=== PATIENT | male | born 1950 | race Caucasian/White ===

== ENCOUNTER 2019-10-04 17:24 | Inpatient (IN) | payer MEDICARE, OTHER ==
[2019-10-04] MEDS ORDERED: IPRATROPIUM-ALBUTEROL 3 ML NEB INHALATION STA (17:51)
[2019-10-04 18:24] LABS: Basophils # (A) 0.1 k/uL (0-0.2); Basophils % (A) 0 %; Eosinophils # (A) 0.1 k/uL (0-0.7); Eosinophils % (A) 1 %; HCT 42.2 % (39.0-53.0); HGB 12.8 gm/dL (13.0-17.5); Hypochromasia Slight; Lymphocytes # (A) 1.9 k/uL (1.0-4.8); Lymphocytes % (A) 18 %; MCH 26.1 pg (25.0-35.0); MCHC 30.3 g/dL (31.0-37.0); MCV 86.3 fL (80.0-100.0); Mean Platelet Volume 8.1; Monocytes # (A) 0.8 k/uL (0-1.0); Monocytes % (A) 7 %; Neutrophils # (A) 7.6 k/uL (1.3-7.7); Neutrophils % (A) 71 %; Platelet Count 355 k/uL (150-450); RBC 4.89 m/uL (4.30-5.90); RDW 13.6 % (11.5-15.5); WBC 10.7 k/uL (3.8-10.6)
[2019-10-04] MEDS ORDERED: MAGNESIUM SULFATE-D5W PMX 1 GM in DEXTROSE/WATER 1 100ML.BAG IVPB ONE (18:32)
[2019-10-04 18:46] LABS: Partial Thromboplastin Time 21.9 sec (22.0-30.0); Prothrombin Time 10.2 sec (9.0-12.0)
[2019-10-04 18:47] LABS: ALT 29 U/L (4-49); AST 28 U/L (17-59); African American GFR (CKD) >90 (>60 ml/min/1.73 sqM); Albumin 4.1 g/dL (3.5-5.0); Alkaline Phosphatase 111 U/L (38-126); Blood Urea Nitrogen 22 mg/dL (9-20); Calcium 9.2 mg/dL (8.4-10.2); Chloride 94 mmol/L (98-107); Glucose 104 mg/dL (74-99); Magnesium 2.2 mg/dL (1.6-2.3); Non-African American GFR(CKD) 87 (>60 ml/min/1.73 sqM); Potassium 4.2 mmol/L (3.5-5.1); Sodium 139 mmol/L (137-145); Total Bilirubin 0.5 mg/dL (0.2-1.3)
[2019-10-04 18:53] LABS: Anion Gap 8 mmol/L
[2019-10-04 18:56] LABS: Carbon Dioxide 37 mmol/L (22-30)
--- NOTE | 2019-10-04 19:01 | ED ---
SOB HPI - General Chief Complaint: Shortness of Breath Stated Complaint: Diff Breathing Time Seen by Provider: 10/04/19 17:40 Source: EMS Mode of arrival: EMS Limitations: no limitations - History of Present Illness Initial Comments: The patient is a 5-year-old male with past medical history of COPD who presents to emergency room with reported shortness of breath. He is normally on 5 L of oxygen at home at all times. He follows up with Dr. Isaac in office. States over the past 5 days he has had increasing shortness of breath. He is using his nebulizers and inhalers as directed however continues to have increasing shortness of breath. He is normally on prednisone 10 mg daily. The patient also has lower extremity edema. He states this has been present for the past 4 months. States that it is been markedly improved compared to what it has been. No history of congestive heart failure. Dr. Isaac has him on diuretics. He denies any chest pain. No ripping or tearing sensation to his back. Denies abdominal pain. Continues to urinate without difficulty. No sick contacts. Denies cough or hemoptysis. He has never been intubated for his breathing. There are no other alleviating, precipitating or modifying factors - Related Data Home Medications Medication Instructions Recorded Confirmed ALPRAZolam [Xanax] 0.25 mg PO TID PRN 10/27/17 10/05/19 Albuterol Inhaler [Ventolin Hfa 2 puff INHALATION RT-Q6H PRN 10/27/17 10/05/19 Inhaler] Albuterol Nebulized [Ventolin 2.5 mg INHALATION RT-QID PRN 10/05/19 10/05/19 Nebulized] Fluticasone/Umeclidin/Vilanter 1 puff INHALATION RT-DAILY 10/05/19 10/05/19 [Trelegy Ellipta 100-62.5-25] Furosemide [Lasix] 40 mg PO DAILY 10/05/19 10/05/19 Potassium Chloride [Klor-Con 20] 20 meq PO DAILY 10/05/19 10/05/19 predniSONE 10 mg PO DAILY 10/05/19 10/05/19 Previous Rx's Medication Instructions Recorded Cefuroxime Axetil [Ceftin] 500 mg PO BID 3 Days #6 tab 10/07/19 Multivitamins, Thera [Multivitamin 1 each PO DAILY@1200 #30 tab 10/07/19 (formulary)] predniSONE 10 mg PO DIRECTED #60 tab 10/07/19 Budesonide [Pulmicort] 1 mg INHALATION BID 30 Days #60 neb 10/08/19 Ipratropium-Albuterol Nebulize 3 ml INHALATION QID 30 Days #120 10/08/19 [Duoneb 0.5 mg-3 mg/3 ml Soln] neb Allergies Allergy/AdvReac Type Severity Reaction Status Date / Time Sulfa (Sulfonamide Allergy Unknown Verified 10/05/19 08:33 Antibiotics) Review of Systems ROS Statement: Those systems with pertinent positive or pertinent negative responses have been documented in the HPI. ROS Other: All systems not noted in ROS Statement are negative. Past Medical History Past Medical History: Heart Failure, COPD, Pneumonia Additional Past Medical History / Comment(s): home 02 2-3 liters nc, emphysema History of Any Multi-Drug Resistant Organisms: None Reported Past Surgical History: Hernia Repair, Tonsillectomy Additional Past Surgical History / Comment(s): rt ing hernia Past Anesthesia/Blood Transfusion Reactions: Motion Sickness Past Psychological History: No Psychological Hx Reported Smoking Status: Former smoker Past Alcohol Use History: None Reported Past Drug Use History: None Reported - Past Family History Mother Family Medical History: Congestive Heart Failure (CHF) Additional Family Medical History / Comment(s): Father Family Medical History: Coronary Artery Disease (CAD) Additional Family Medical History / Comment(s): "hardening of the arteries" General Exam Limitations: no limitations General appearance: alert, in distress Eye exam: Present: normal appearance, PERRL, EOMI. Absent: scleral icterus, conjunctival injection, periorbital swelling ENT exam: Present: normal exam, mucous membranes moist Respiratory exam: Present: respiratory distress, wheezes, accessory muscle use, decreased breath sounds Cardiovascular Exam: Present: normal rhythm, tachycardia GI/Abdominal exam: Present: soft, normal bowel sounds. Absent: distended, tenderness, guarding, rebound, rigid Extremities exam: Present: pedal edema Neurological exam: Present: alert, oriented X3, CN II-XII intact Psychiatric exam: Present: normal affect, normal mood Skin exam: Present: warm, dry, intact, normal color. Absent: rash Course Vital Signs 10/04/19 10/04/19 10/04/19 17:37 18:09 18:19 Temperature 98.2 F Pulse Rate 106 H 108 H 108 H Respiratory 32 H Rate Blood Pressure 168/77 O2 Sat by Pulse 95 Oximetry 10/04/19 10/04/19 10/04/19 18:34 19:17 19:46 Temperature Pulse Rate 94 96 Respiratory 20 20 26 H Rate Blood Pressure 130/73 140/73 O2 Sat by Pulse 98 97 Oximetry 10/04/19 20:21 Temperature 97.7 F Pulse Rate 96 Respiratory 20 Rate Blood Pressure 151/80 O2 Sat by Pulse 97 Oximetry Medical Decision Making - Medical Decision Making Upon arrival the patient was originally placed in room 31 and then was moved to room 28. A thorough history and physical exam was performed. The patient was given a DuoNeb breathing treatment, albuterol treatment and 125 mg of Solu- Medrol via EMS. The patient received an additional DuoNeb breathing treatment and 1 g of magnesium for his peripheral IV which was established. Laboratory studies were conducted which demonstrate chloride of 94, lactic acid 1.4. First troponin is negative. Influenza A and B are negative. Chest x-ray demonstrates no acute process. I discussed results with the patient. He does state that he feels more comfortable at this time. Because of his severe worker breathing upon arrival to the ER I did recommend hospitalization with pulmonary consult. The patient did agree to this. Bridging orders were placed and the patient was taken to the floor in stable condition - Lab Data Result diagrams: 10/07/19 05:45 10/07/19 05:45 Lab Results 10/04/19 10/04/19 10/04/19 Range/Units 17:56 17:56 17:56 WBC 10.7 H (3.8-10.6) k/uL RBC 4.89 (4.30-5.90) m/uL Hgb 12.8 L (13.0-17.5) gm/dL Hct 42.2 (39.0-53.0) % MCV 86.3 (80.0-100.0) fL MCH 26.1 (25.0-35.0) pg MCHC 30.3 L (31.0-37.0) g/dL RDW 13.6 (11.5-15.5) % Plt Count 355 (150-450) k/uL Neutrophils % 71 % Lymphocytes % 18 % Monocytes % 7 % Eosinophils % 1 % Basophils % 0 % Neutrophils # 7.6 (1.3-7.7) k/uL Lymphocytes # 1.9 (1.0-4.8) k/uL Monocytes # 0.8 (0-1.0) k/uL Eosinophils # 0.1 (0-0.7) k/uL Basophils # 0.1 (0-0.2) k/uL Hypochromasia Slight PT 10.2 (9.0-12.0) sec INR 1.0 (<1.2) APTT 21.9 L (22.0-30.0) sec Sodium 139 (137-145) mmol/L Potassium 4.2 (3.5-5.1) mmol/L Chloride 94 L (98-107) mmol/L Carbon Dioxide 37 H (22-30) mmol/L Anion Gap 8 mmol/L BUN 22 H (9-20) mg/dL Creatinine 0.88 (0.66-1.25) mg/dL Est GFR (CKD-EPI)AfAm >90 (>60 ml/min/1.73 sqM) Est GFR (CKD-EPI)NonAf 87 (>60 ml/min/1.73 sqM) Glucose 104 H (74-99) mg/dL Plasma Lactic Acid Rj (0.7-2.0) mmol/L Calcium 9.2 (8.4-10.2) mg/dL Magnesium 2.2 (1.6-2.3) mg/dL Total Bilirubin 0.5 (0.2-1.3) mg/dL AST 28 (17-59) U/L ALT 29 (4-49) U/L Alkaline Phosphatase 111 (38-126) U/L Troponin I (0.000-0.034) ng/mL NT-Pro-B Natriuret Pep pg/mL Total Protein 7.0 (6.3-8.2) g/dL Albumin 4.1 (3.5-5.0) g/dL Urine Color Urine Appearance (Clear) Urine pH (5.0-8.0) Ur Specific [place] (1.001-1.035) Urine Protein (Negative) Urine Glucose (UA) (Negative) Urine Ketones (Negative) Urine Blood (Negative) Urine Nitrite (Negative) Urine Bilirubin (Negative) Urine Urobilinogen (<2.0) mg/dL Ur Leukocyte Esterase (Negative) Influenza Type A RNA (Not Detectd) Influenza Type B (PCR) (Not Detectd) 10/04/19 10/04/19 10/04/19 Range/Units 17:56 17:56 18:10 WBC (3.8-10.6) k/uL RBC (4.30-5.90) m/uL Hgb (13.0-17.5) gm/dL Hct (39.0-53.0) % MCV (80.0-100.0) fL MCH (25.0-35.0) pg MCHC (31.0-37.0) g/dL RDW (11.5-15.5) % Plt Count (150-450) k/uL Neutrophils % % Lymphocytes % % Monocytes % % Eosinophils % % Basophils % % Neutrophils # (1.3-7.7) k/uL Lymphocytes # (1.0-4.8) k/uL Monocytes # (0-1.0) k/uL Eosinophils # (0-0.7) k/uL Basophils # (0-0.2) k/uL Hypochromasia PT (9.0-12.0) sec INR (<1.2) APTT (22.0-30.0) sec Sodium (137-145) mmol/L Potassium (3.5-5.1) mmol/L Chloride (98-107) mmol/L Carbon Dioxide (22-30) mmol/L Anion Gap mmol/L BUN (9-20) mg/dL Creatinine (0.66-1.25) mg/dL Est GFR (CKD-EPI)AfAm (>60 ml/min/1.73 sqM) Est GFR (CKD-EPI)NonAf (>60 ml/min/1.73 sqM) Glucose (74-99) mg/dL Plasma Lactic Acid Rj 1.4 (0.7-2.0) mmol/L Calcium (8.4-10.2) mg/dL Magnesium (1.6-2.3) mg/dL Total Bilirubin (0.2-1.3) mg/dL AST (17-59) U/L ALT (4-49) U/L Alkaline Phosphatase (38-126) U/L Troponin I <0.012 (0.000-0.034) ng/mL NT-Pro-B Natriuret Pep 275 pg/mL Total Protein (6.3-8.2) g/dL Albumin (3.5-5.0) g/dL Urine Color Urine Appearance (Clear) Urine pH (5.0-8.0) Ur Specific [place] (1.001-1.035) Urine Protein (Negative) Urine Glucose (UA) (Negative) Urine Ketones (Negative) Urine Blood (Negative) Urine Nitrite (Negative) Urine Bilirubin (Negative) Urine Urobilinogen (<2.0) mg/dL Ur Leukocyte Esterase (Negative) Influenza Type A RNA (Not Detectd) Influenza Type B (PCR) (Not Detectd) 10/04/19 10/04/19 10/05/19 Range/Units 19:11 23:20 00:12 WBC (3.8-10.6) k/uL RBC (4.30-5.90) m/uL Hgb (13.0-17.5) gm/dL Hct (39.0-53.0) % MCV (80.0-100.0) fL MCH (25.0-35.0) pg MCHC (31.0-37.0) g/dL RDW (11.5-15.5) % Plt Count (150-450) k/uL Neutrophils % % Lymphocytes % % Monocytes % % Eosinophils % % Basophils % % Neutrophils # (1.3-7.7) k/uL Lymphocytes # (1.0-4.8) k/uL Monocytes # (0-1.0) k/uL Eosinophils # (0-0.7) k/uL Basophils # (0-0.2) k/uL Hypochromasia PT (9.0-12.0) sec INR (<1.2) APTT (22.0-30.0) sec Sodium (137-145) mmol/L Potassium (3.5-5.1) mmol/L Chloride (98-107) mmol/L Carbon Dioxide (22-30) mmol/L Anion Gap mmol/L BUN (9-20) mg/dL Creatinine (0.66-1.25) mg/dL Est GFR (CKD-EPI)AfAm (>60 ml/min/1.73 sqM) Est GFR (CKD-EPI)NonAf (>60 ml/min/1.73 sqM) Glucose (74-99) mg/dL Plasma Lactic Acid Rj (0.7-2.0) mmol/L Calcium (8.4-10.2) mg/dL Magnesium (1.6-2.3) mg/dL Total Bilirubin (0.2-1.3) mg/dL AST (17-59) U/L ALT (4-49) U/L Alkaline Phosphatase (38-126) U/L Troponin I 0.015 (0.000-0.034) ng/mL NT-Pro-B Natriuret Pep pg/mL Total Protein (6.3-8.2) g/dL Albumin (3.5-5.0) g/dL Urine Color Yellow Urine Appearance Clear (Clear) Urine pH 6.0 (5.0-8.0) Ur Specific [place] 1.029 (1.001-1.035) Urine Protein Trace H (Negative) Urine Glucose (UA) Negative (Negative) Urine Ketones Negative (Negative) Urine Blood Negative (Negative) Urine Nitrite Negative (Negative) Urine Bilirubin Negative (Negative) Urine Urobilinogen 3.0 (<2.0) mg/dL Ur Leukocyte Esterase Negative (Negative) Influenza Type A RNA Not Detected (Not Detectd) Influenza Type B (PCR) Not Detected (Not Detectd) 10/05/19 10/05/19 10/05/19 Range/Units 09:28 09:28 09:28 WBC 12.0 H (3.8-10.6) k/uL RBC 4.82 (4.30-5.90) m/uL Hgb 12.7 L (13.0-17.5) gm/dL Hct 42.1 (39.0-53.0) % MCV 87.3 (80.0-100.0) fL MCH 26.3 (25.0-35.0) pg MCHC 30.1 L (31.0-37.0) g/dL RDW 13.6 (11.5-15.5) % Plt Count 355 (150-450) k/uL Neutrophils % 90 % Lymphocytes % 6 % Monocytes % 3 % Eosinophils % 0 % Basophils % 0 % Neutrophils # 10.9 H (1.3-7.7) k/uL Lymphocytes # 0.8 L (1.0-4.8) k/uL Monocytes # 0.3 (0-1.0) k/uL Eosinophils # 0.0 (0-0.7) k/uL Basophils # 0.0 (0-0.2) k/uL Hypochromasia Slight PT (9.0-12.0) sec INR (<1.2) APTT (22.0-30.0) sec Sodium 139 (137-145) mmol/L Potassium 5.0 (3.5-5.1) mmol/L Chloride 94 L (98-107) mmol/L Carbon Dioxide 40 H (22-30) mmol/L Anion Gap 5 mmol/L BUN 24 H (9-20) mg/dL Creatinine 0.80 (0.66-1.25) mg/dL Est GFR (CKD-EPI)AfAm >90 (>60 ml/min/1.73 sqM) Est GFR (CKD-EPI)NonAf >90 (>60 ml/min/1.73 sqM) Glucose 162 H (74-99) mg/dL Plasma Lactic Acid Rj (0.7-2.0) mmol/L Calcium 9.3 (8.4-10.2) mg/dL Magnesium (1.6-2.3) mg/dL Total Bilirubin (0.2-1.3) mg/dL AST (17-59) U/L ALT (4-49) U/L Alkaline Phosphatase (38-126) U/L Troponin I <0.012 (0.000-0.034) ng/mL NT-Pro-B Natriuret Pep pg/mL Total Protein (6.3-8.2) g/dL Albumin (3.5-5.0) g/dL Urine Color Urine Appearance (Clear) Urine pH (5.0-8.0) Ur Specific [place] (1.001-1.035) Urine Protein (Negative) Urine Glucose (UA) (Negative) Urine Ketones (Negative) Urine Blood (Negative) Urine Nitrite (Negative) Urine Bilirubin (Negative) Urine Urobilinogen (<2.0) mg/dL Ur Leukocyte Esterase (Negative) Influenza Type A RNA (Not Detectd) Influenza Type B (PCR) (Not Detectd) - EKG Data EKG Comments: EKG demonstrates a normal sinus rhythm with a ventricular rate of 99. OR interv al 116. QRS 76. QTC of 451. No acute ST segment elevations or depressions concerning for ischemic changes Disposition Clinical Impression: Acute exacerbation of chronic obstructive airways disease Disposition: ADMITTED IP TO THIS HOSP Condition: Stable Is patient prescribed a controlled substance at d/c from ED?: No Decision to Admit Reason: Admit from EC Decision Date: 10/04/19 Decision Time: 19:56
--- NOTE | 2019-10-04 19:32 | XR ---
EXAMINATION: XR chest 2V DATE AND TIME: 10/04/2019 6:42 PM CLINICAL INDICATION: PHH; difficulty breathing TECHNIQUE: Departmental protocol COMPARISON: 10/27/2017 FINDINGS: Emphysematous changes are redemonstrated. The lungs are clear and well-expanded. The pleural spaces are negative. The cardiac silhouette is not enlarged. The remainder of the mediastinal silhouette is unremarkable. The skeletal structures and soft tissues are negative for acute findings. IMPRESSION: No acute radiographic process.
[2019-10-04] MEDS ORDERED: NALOXONE 0.4 MG/ML 1 ML VIAL IV PRN (19:57)
[2019-10-04] MEDS ORDERED: IPRATROPIUM-ALBUTEROL 3 ML NEB INHALATION PRN (21:31)
[2019-10-04] MEDS ORDERED: HYDROcodone/APAP 5-325MG 1 EACH TAB PO PRN (21:31)
[2019-10-04] MEDS ORDERED: ACETAMINOPHEN TAB 500 MG TAB PO PRN (21:31)
[2019-10-04] MEDS: HEPARIN SODIUM,PORCINE 5,000 UNIT/ML 1 ML VIAL SQ SCH (22:41)
[2019-10-04] MEDS: FUROSEMIDE 10 MG/ML 4 ML VIAL IV SCH (22:42)
[2019-10-04] MEDS: methylPREDNISolone SOD SUCCI 40 MG/ML 1 ML VIAL IV SCH (22:42)
[2019-10-04] MEDS: AZITHROMYCIN 500 MG in SODIUM CHLORIDE 0.9% 250 ML IVPB SCH (22:42)
[2019-10-04] MEDS: ALPRAZolam 0.25 MG TAB PO PRN (22:52)
--- NOTE | 2019-10-04 23:47 | HP ---
HISTORY AND PHYSICAL DATE OF SERVICE: 10/04/2019 CHIEF COMPLAINT: Shortness of breath, cough and sputum and bilateral leg swelling. HISTORY OF PRESENT ILLNESS: This 68-year-old gentleman with a past medical history of multiple medical problems including COPD, CHF, history of chronic hypoxic respiratory failure, history of nicotine dependence, being followed by Dr. Isaac in the outpatient setting complaining of shortness of breath over the past several days. Patient also had bilateral leg swelling and increasing diuretics. Because of lack of improvement, increased symptoms, patient came to [facility] and was admitted for further evaluation and treatment. Chest x-ray showed some chronic changes. No acute changes are noted. Cor pulmonale is also being considered. The patient did not have a 2D echo in the chart at this time. There is no history of fever, rigors or chills. No history of headache, loss of consciousness or seizures. Flu test is also being done. PAST MEDICAL HISTORY: History of CHF, COPD, history of pneumonia, chronic hypoxic respiratory failure, history of hernia repair. MEDICATIONS: Home medications are: 1. Prednisone 5 mg p.o. daily. 2. Spiriva 1 puff daily. 4. Magnesium oxide 500 mg p.o. daily. 5. Advair 500/50 1 puff b.i.d. 6. Ecotrin 81 mg daily. 7. Ventolin 1-2 puffs q.6h p.r.n. 8. Xanax 0.5 t.i.d. p.r.n. ALLERGIES: SULFA. FAMILY HISTORY: History of CHF. SOCIAL HISTORY: Previous history of smoking. No history of current smoking, or alcohol intake. REVIEW OF SYSTEMS: ENT diminished vision. Diminished hearing. CARDIOVASCULAR: No angina or palpitations. RESPIRATION as mentioned earlier. GASTROINTESTINAL: As mentioned earlier. no dysuria. Nervous systems: No numbness or weakness. ALLERGY/IMMUNOLOGY: No asthma or hayfever. MUSCULOSKELETAL: As mentioned earlier. HEMATOLOGY/ONCOLOGY: No history of anemia. ENDOCRINE: No history of diabetes or hypothyroidism. CONSTITUTIONAL: As mentioned earlier. DERMATOLOGY negative. RHEUMATOLOGY: Negative. PSYCHIATRY as mentioned. PHYSICAL EXAMINATION: Alert and oriented x3. Pulse is 96, blood pressure 140/73, respiration 20, temperature is normal. Pulse ox 97% on 5 L. HEENT: Conjunctivae normal. NECK: No JVD. CARDIOVASCULAR: S1, S2 muffled. RESPIRATION: Breath sounds diminished in the bases. Bilateral scattered rhonchi and crackles. Otherwise breathing efforts are markedly increased. ABDOMEN: Soft, nontender. No mass palpable. LEGS bilateral leg edema, swelling and cellulitis. NERVOUS SYSTEM: Higher functions as mentioned. Moves all four limbs. No focal deficits. LYMPHATICS: No lymph nodes palpable in the neck, axillae or groin. SKIN: No ulcer. No rashes and no bleeding. JOINTS: No active deforming arthropathy. LAB STUDIES: WBC 10.2, hemoglobin 12.8, sodium 139, potassium 4.2. ASSESSMENT: 1. Chronic obstructive pulmonary disease acute exacerbation with acute ventricular bronchitis. 2. Possibly congestive heart failure, acute exacerbation, ejection fraction unknown, possibly acute on chronic cor pulmonale. 3. Bilateral leg cellulitis. 4. Increased WBC. 5. Anemia, normocytic anemia of chronic disease. 6. History of chronic obstructive pulmonary disease. 7. History of congestive heart failure. 8. History of pneumonia. 9. History of chronic hypoxic respiratory failure on 2 L nasal cannula. 10.Remote history of nicotine dependence. 11.Obesity with body mass of 33.2. RECOMMENDATIONS AND DISCUSSION: In this 68-year-old gentleman who presented with multiple complex medical issues, we will monitor the patient closely, continue the current medications, management and symptomatic treatment. Optimize the bronchodilator treatment. Otherwise, I would also recommend diuretics, antibiotics. IV steroids. Closely follow. Consult Dr. Mcgill. Guarded prognosis. Further recommendations to follow. A copy of dictation being forwarded to Dr. Isaac who is the primary care physician. This of this. MMODL / IJN: [id number] / MTDGage
[2019-10-04 23:57] LABS: Appearance,Urine Clear (Clear); Bilirubin,Urine Negative (Negative); Blood,Urine Negative (Negative); Color,Urine Yellow; Glucose,Urine (UA) Negative (Negative); Ketones,Urine Negative (Negative); Leukocyte Esterase,Urine Negative (Negative); Nitrite,Urine Negative (Negative); Protein,Urine Trace (Negative); Specific Gravity,Urine 1.029 (1.001-1.035)
[2019-10-05] MEDS ORDERED: IPRATROPIUM-ALBUTEROL 3 ML NEB INHALATION SCH
[2019-10-05] MEDS ORDERED: methylPREDNISolone SOD SUCCI 40 MG/ML 1 ML VIAL IV SCH
[2019-10-05] MEDS: methylPREDNISolone SOD SUCCI 40 MG/ML 1 ML VIAL IV SCH ×3 (06:00→18:19)
[2019-10-05] MEDS ORDERED: SYMBICORT 160-4.5 MCG INHALER INHALATION SCH (08:00)
[2019-10-05] MEDS ORDERED: TIOTROPIUM BROMIDE INHALATION SCH (08:00)
[2019-10-05] MEDS: BUDESONIDE 1 MG/2 ML NEBU INHALATION SCH ×2 (08:03→20:00)
[2019-10-05] MEDS: IPRATROPIUM-ALBUTEROL 3 ML NEB INHALATION SCH ×4 (08:03→20:00)
[2019-10-05] MEDS: FORMOTEROL FUMARATE 20 MCG/2 ML NEBU INHALATION SCH ×2 (08:03→20:00)
[2019-10-05] MEDS: ASPIRIN 81 MG PO SCH (09:12)
[2019-10-05] MEDS: PANTOPRAZOLE 40 MG TABLET PO SCH (09:12)
[2019-10-05] MEDS: FUROSEMIDE 10 MG/ML 4 ML VIAL IV SCH (09:12)
[2019-10-05] MEDS: HEPARIN SODIUM,PORCINE 5,000 UNIT/ML 1 ML VIAL SQ SCH ×2 (09:12→22:12)
[2019-10-05] MEDS: ALPRAZolam 0.25 MG TAB PO PRN ×2 (09:16→18:19)
[2019-10-05 09:43] LABS: Basophils % (A) 0 %; Eosinophils % (A) 0 %; HCT 42.1 % (39.0-53.0); HGB 12.7 gm/dL (13.0-17.5); Hypochromasia Slight; Lymphocytes # (A) 0.8 k/uL (1.0-4.8); Lymphocytes % (A) 6 %; MCH 26.3 pg (25.0-35.0); MCHC 30.1 g/dL (31.0-37.0); MCV 87.3 fL (80.0-100.0); Mean Platelet Volume 7.2; Monocytes # (A) 0.3 k/uL (0-1.0); Monocytes % (A) 3 %; Neutrophils # (A) 10.9 k/uL (1.3-7.7); Neutrophils % (A) 90 %; Platelet Count 355 k/uL (150-450); RBC 4.82 m/uL (4.30-5.90); RDW 13.6 % (11.5-15.5)
[2019-10-05 09:53] LABS: African American GFR (CKD) >90 (>60 ml/min/1.73 sqM); Anion Gap 5 mmol/L; Blood Urea Nitrogen 24 mg/dL (9-20); Calcium 9.3 mg/dL (8.4-10.2); Chloride 94 mmol/L (98-107); Glucose 162 mg/dL (74-99); Non-African American GFR(CKD) >90 (>60 ml/min/1.73 sqM); Sodium 139 mmol/L (137-145)
[2019-10-05 10:00] LABS: Carbon Dioxide 40 mmol/L (22-30)
--- NOTE | 2019-10-05 10:31 | ECHOF ---
Referral Reason:cor pulmonale MEASUREMENTS -------- HEIGHT: 175.3 cm WEIGHT: 102.1 kg BP: 154/63 RVIDd: 3.4 cm (< 3.3) IVSd: 1.1 cm (0.6 - 1.1) LVIDd: 5.2 cm (3.9 - 5.3) LVPWd: 1.0 cm (0.6 - 1.1) IVSs: 1.6 cm LVIDs: 3.8 cm LVPWs: 1.4 cm LA Diam: 3.5 cm (2.7 - 3.8) Ao Diam: 3.9 cm (2.0 - 3.7) AV Cusp: 2.1 cm (1.5 - 2.6) MV EXCURSION: 26.030 mm (> 18.000) MV EF SLOPE: 96 mm/s (70 - 150) EPSS: 0.4 cm MV E Zain: 0.76 m/s MV DecT: 253 ms MV A Zain: 0.95 m/s MV E/A Ratio: 0.80 FINDINGS -------- Sinus rhythm. This was a technically adequate study. The left ventricular size is normal. There is borderline concentric left ventricular hypertrophy. Overall left ventricular systolic function is mildly impaired with, an EF between 45 - 50 %. The right ventricle is mildly enlarged. The left atrial size is normal. The right atrium is normal in size. Interatrial and interventricular septum intact. The aortic valve is trileaflet and appears structurally normal. Mild mitral regurgitation is present. Trace tricuspid regurgitation present. The pulmonic valve was not well visualized. The aortic root is dilated measuring 3.9cm. IVC Not well visulized. There is no pericardial effusion. CONCLUSIONS -------- 1. Sinus rhythm. 2. This was a technically adequate study. 3. The left ventricular size is normal. 4. There is borderline concentric left ventricular hypertrophy. 5. Overall left ventricular systolic function is mildly impaired with, an EF between 45 - 50 %. 6. The right ventricle is mildly enlarged. 7. The left atrial size is normal. 8. The right atrium is normal in size. 9. Interatrial and interventricular septum intact. 10. The aortic valve is trileaflet and appears structurally normal. 11. Mild mitral regurgitation is present. 12. Trace tricuspid regurgitation present. 13. The pulmonic valve was not well visualized. 14. The aortic root is dilated measuring 3.9cm. 15. IVC Not well visulized. 16. There is no pericardial effusion. APPRENTICE COOK: Ayaka Pettit RDCS
--- NOTE | 2019-10-05 12:38 | P.CNPUL ---
History of Present Illness Consult date: 10/05/19 Reason for consult: dyspnea, COPD History of present illness: This is a 68-year-old white male with history of severe end-stage COPD, FEV1 is in the range of 22%, patient is O2 dependent, prednisone dependent maintained on 10 mg of prednisone daily, and he is on 2 L of oxygen via nasal cannula. Patient normally sees Dr. Isaac for his COPD, and has been compliant with all his meds, quit smoking a while back. Patient has FEV1 was noted to be 22% at best. Came into the ER today with a few days' history of increased shortness of breath, cough, and fever. His cough was productive with whitish phlegm. No hemoptysis, no chest pain, no nausea no vomiting no abdominal pain. Patient is compliant with all his meds as listed including albuterol, Trelegy Ellipta, and prednisone. The patient has chronic edema in his lower extremities. No denies having any chest pain. Denies having any fever. His breathing has a progressively getting worse over this past 5 days. He oxygen level was holding of fluctuating, however, his artery was doing significantly high with minimal amount of activity. The patient had no significant leukocytosis. Chest x-ray was consistent with COPD. Influenza screen was negative. Rest of the blood work was all within normal limits. Echo of the heart showed an ejection fraction of 45-50% and there was no other significant valvular abnormalities. His concentric LVH. Review of Systems Constitutional: Reports fatigue, Reports lethargy, Reports weight gain Eyes: denies as per HPI, denies blurred vision, denies bulging eye, denies decreased vision, denies diplopia, denies discharge, denies dry eye, denies irritation, denies itching, denies pain, denies photophobia, denies loss of peripheral vision, denies loss of vision, denies tunnel vision/blind spots Ears: deny: decreased hearing, ear discharge, earache, tinnitus Ears, nose, mouth and throat: Denies headache, Denies sore throat Breasts: absent: as per HPI, gynecomastia Cardiovascular: Reports decreased exercise tolerance, Reports dyspnea on exertion, Reports leg edema, Reports shortness of breath Respiratory: Reports cough, Reports dyspnea, Reports wheezing Gastrointestinal: Reports as per HPI Genitourinary: Reports as per HPI Musculoskeletal: Reports as per HPI Musculoskeletal: bilateral: ankle swelling, absent: ankle pain, ankle stiffness Integumentary: Reports as per HPI Neurological: Reports as per HPI Psychiatric: Reports as per HPI Endocrine: Reports as per HPI Hematologic/Lymphatic: Reports as per HPI Allergic/Immunologic: Reports as per HPI Past Medical History Past Medical History: Heart Failure, COPD, Pneumonia Additional Past Medical History / Comment(s): home 02 2-3 liters nc, emphysema History of Any Multi-Drug Resistant Organisms: None Reported Past Surgical History: Hernia Repair, Tonsillectomy Additional Past Surgical History / Comment(s): rt ing hernia Past Anesthesia/Blood Transfusion Reactions: Motion Sickness Past Psychological History: No Psychological Hx Reported Smoking Status: Former smoker Past Alcohol Use History: None Reported Past Drug Use History: None Reported - Past Family History Mother Family Medical History: Congestive Heart Failure (CHF) Additional Family Medical History / Comment(s): Father Family Medical History: Coronary Artery Disease (CAD) Additional Family Medical History / Comment(s): "hardening of the arteries" Medications and Allergies Home Medications Medication Instructions Recorded Confirmed Type ALPRAZolam [Xanax] 0.25 mg PO TID PRN 10/27/17 10/05/19 History Albuterol Inhaler [Ventolin Hfa 2 puff INHALATION RT-Q6H PRN 10/27/17 10/05/19 History Inhaler] Albuterol Nebulized [Ventolin 2.5 mg INHALATION RT-QID PRN 10/05/19 10/05/19 History Nebulized] Fluticasone/Umeclidin/[place]an[place] 1 puff INHALATION RT-DAILY 10/05/19 10/05/19 History [Trelegy Ellipta 100-62.5-25] Furosemide [Lasix] 40 mg PO DAILY 10/05/19 10/05/19 History Potassium Chloride [Klor-Con 20] 20 meq PO DAILY 10/05/19 10/05/19 History predniSONE 10 mg PO DAILY 10/05/19 10/05/19 History Allergies Allergy/AdvReac Type Severity Reaction Status Date / Time Sulfa (Sulfonamide Allergy Unknown Verified 10/05/19 08:33 Antibiotics) Physical Exam Vitals: Vital Signs Temp Pulse Pulse Resp BP BP Pulse Ox 10/05/19 12:04 108 H 10/05/19 11:50 108 H 10/05/19 08:24 112 H 10/05/19 08:16 108 H 10/05/19 08:15 108 H 10/05/19 08:03 108 H 10/05/19 08:00 103 H 10/05/19 05:15 97.8 F 103 H 28 H 154/63 95 10/04/19 23:32 100 10/04/19 23:20 97 10/04/19 22:00 97.9 F 94 20 163/76 97 10/04/19 20:21 97.7 F 96 20 151/80 97 10/04/19 19:46 26 H 10/04/19 19:17 96 20 140/73 97 10/04/19 18:34 94 20 130/73 98 10/04/19 18:19 108 H 10/04/19 18:09 108 H 10/04/19 17:37 98.2 F 106 H 32 H 168/77 95 Intake and Output 10/04/19 10/05/19 10/05/19 22:59 06:59 14:59 Intake Total 200 100 Output Total 300 Balance 200 -200 Intake: Oral 200 100 Output: Urine 300 Other: # Voids 1 Weight 102.058 kg Physical Exam: Revealed a 68 -year-old white male in no distress, 2 L oxygen via nasal cannula. Head: Atraumatic, normocephalic Eyes: PERRLA, EOMI. HEENT:[Neck is supple.] [No neck masses.] [No thyromegaly.] [No JVD.] Chest: [Diminished breath sound bilaterally, no rhonchi, no wheezes no crackles noted. Symmetrical chest expansion, no chest wall tenderness..] Cardiac Exam: [Normal S1 and S2, no S3 gallop, no murmur.] Abdomen: [Soft, nontender, no megaly, no rebound, no guarding, normal bowel sounds.] Extremities: [No clubbing, no edema, no cyanosis.] Multiple tattoos throughout the whole body were noted. Neurological Exam: [No focal neurologic deficit.] Lymphatics: No lymphadenopathy. Musculoskeletal: Normal range of motion and no limitations no deformities. Psychiatric: Normal mood affect and mental status examination. Results - Laboratory Findings CBC and BMP: 10/05/19 09:28 10/05/19 09:28 PT/INR, D-dimer PT 10.2 sec (9.0-12.0) 10/04/19 17:56 INR 1.0 (<1.2) 10/04/19 17:56 Abnormal lab findings: Abnormal Labs 10/04/19 10/04/19 10/04/19 17:56 17:56 17:56 WBC 10.7 H Hgb 12.8 L MCHC 30.3 L Neutrophils # Lymphocytes # APTT 21.9 L Chloride 94 L Carbon Dioxide 37 H BUN 22 H Glucose 104 H Urine Protein 10/04/19 10/05/19 10/05/19 23:20 09:28 09:28 WBC 12.0 H Hgb 12.7 L MCHC 30.1 L Neutrophils # 10.9 H Lymphocytes # 0.8 L APTT Chloride 94 L Carbon Dioxide 40 H BUN 24 H Glucose 162 H Urine Protein Trace H - Diagnostic Findings Chest x-ray: image reviewed Assessment and Plan Plan: 1 Acute exacerbation of COPD and tracheobronchitis, no clear-cut evidence of pneumonia on the chest x-ray. The patient is having increased shortness of breath secondary to COPD exacerbation 2 severe oxygen and steroid dependent COPD with an FEV1 of 22% of predicted 3 chronic dyspnea secondary to above 4 history of smoking quit many years back in 2014 5 chronic lower extremity edema 6 systolic heart failure with an ejection fraction of 45% 7 generalized anxiety disorder maintained on Xanax. Plan The patient will be treated for an acute COPD exacerbation. We will place on DuoNeb nebulized treatments on the clock. Went to start him on a combination of Perforomist and Pulmicort neb last 2 minutes twice a day. IV Solu-Medrol. IV Lasix 20 mg every 24 hours. Echo was noted. Chest x-ray was noted. Influenza screen is negative. Outpatient medication Trelegy Ellipta with prednisone 10 mg as maintenance. We'll continue to follow.
[2019-10-05] MEDS: MULTIVITAMINS, THERA 1 EACH TAB PO SCH (13:08)
--- NOTE | 2019-10-05 20:23 | PN ---
PROGRESS NOTE DATE OF SERVICE: 10/05/2019 This 68-year-old gentleman admitted with shortness of breath and CHF, acute exacerbation, also had bilateral leg edema. Cor pulmonale was suspected. A 2D echo with Doppler was done. The patient is on IV Lasix improved significantly. The 2D echo showing ejection fraction of 40% to 50%. Dr. Mcgill is following the patient closely. Past medical history reviewed. REVIEW OF SYSTEMS: CARDIOVASCULAR SYSTEM: No angina, palpitations. RESPIRATORY SYSTEM: As mentioned earlier. GI: As mentioned earlier. : No dysuria or retention. NERVOUS SYSTEM: No numbness, weakness. CURRENT MEDICATIONS: Reviewed. They include: 1. Tylenol p.r.n. 2. [place] 5 mg q.6 p.r.n. 3. DuoNeb q.i.d. and p.r.n. 4. Xanax 0.25 t.i.d. 5. Aspirin 81 mg daily. 6. Zithromax 500 mg daily. 7. Pulmicort. 8. Rocephin 1 gram daily. 9. Perforomist. 10.Lasix. 11.Heparin. 12.Solu-Medrol. 13.Multivitamins. 14.Narcan. 15.Protonix. PHYSICAL EXAMINATION: Patient is alert on x3. Pulse is 110, blood pressure 141/70, respiration 22, temperature 97.9, pulse ox 94% on room air. HEENT: Conjunctivae normal. NECK: No jugular venous distention. CARDIOVASCULAR SYSTEM: S1, S2 muffled. RESPIRATORY SYSTEM: Breath sounds diminished at the bases. A few scattered rhonchi and crackles. Expiratory wheezing. ABDOMEN: Soft, non-tender. LEGS: No edema. No swelling. NERVOUS SYSTEM: No focal deficit. LABS: WBC 12, hemoglobin 12.7. Sodium 139, potassium 5. ASSESSMENT: 1. Shortness of breath, possibly multifactorial, with chronic obstructive pulmonary disease, acute exacerbation, with acute purulent tracheobronchitis as well as congestive heart failure, acute exacerbation, with acute on chronic systolic dysfunction, ejection fraction 40% to 50%. 2. Possible acute on chronic cor pulmonale. 3. Left leg cellulitis. 4. Increased white count. 5. Anemia, normocytic; anemia of chronic disease. 6. History of chronic obstructive pulmonary disease. 7. History of congestive heart failure. 8. History of pneumonia. 9. History of chronic hypoxic respiratory failure, on 2 L nasal cannula. 10.Remote history of nicotine dependence. 11.Obesity with body mass index of 33.2. RECOMMENDATIONS AND DISCUSSION: I recommend to continue current medications, continue with the monitoring, symptomatic treatment. I recommend continuing with the bronchodilators, diuretics, antibiotic. Guarded prognosis because of multiple complex medical issues. Further recommendations to follow. See orders for further details. MMODL / IJN: [id number] / [place]
[2019-10-05] MEDS: AZITHROMYCIN 500 MG in SODIUM CHLORIDE 0.9% 250 ML IVPB SCH (22:13)
[2019-10-06] MEDS: methylPREDNISolone SOD SUCCI 40 MG/ML 1 ML VIAL IV SCH ×4 (00:11→23:29)
[2019-10-06] MEDS: ALPRAZolam 0.25 MG TAB PO PRN ×2 (05:20→19:34)
[2019-10-06 07:36] LABS: Basophils % (A) 0 %; Eosinophils # (A) 0.1 k/uL (0-0.7); Eosinophils % (A) 0 %; HCT 39.1 % (39.0-53.0); HGB 11.8 gm/dL (13.0-17.5); Hypochromasia Moderate; Lymphocytes # (A) 0.7 k/uL (1.0-4.8); Lymphocytes % (A) 4 %; MCH 26.1 pg (25.0-35.0); MCHC 30.1 g/dL (31.0-37.0); MCV 86.8 fL (80.0-100.0); Mean Platelet Volume 7.2; Monocytes # (A) 0.6 k/uL (0-1.0); Monocytes % (A) 3 %; Neutrophils # (A) 16.2 k/uL (1.3-7.7); Neutrophils % (A) 92 %; Platelet Count 370 k/uL (150-450); RDW 13.5 % (11.5-15.5); WBC 17.6 k/uL (3.8-10.6)
[2019-10-06 07:51] LABS: African American GFR (CKD) >90 (>60 ml/min/1.73 sqM); Anion Gap 5 mmol/L; Blood Urea Nitrogen 31 mg/dL (9-20); Calcium 8.9 mg/dL (8.4-10.2); Carbon Dioxide 38 mmol/L (22-30); Chloride 95 mmol/L (98-107); Glucose 137 mg/dL (74-99); Non-African American GFR(CKD) 90 (>60 ml/min/1.73 sqM); Sodium 138 mmol/L (137-145)
[2019-10-06] MEDS: MULTIVITAMINS, THERA 1 EACH TAB PO SCH (08:19)
[2019-10-06] MEDS: PANTOPRAZOLE 40 MG TABLET PO SCH (08:19)
[2019-10-06] MEDS: FUROSEMIDE 10 MG/ML 4 ML VIAL IV SCH (08:20)
[2019-10-06] MEDS: HEPARIN SODIUM,PORCINE 5,000 UNIT/ML 1 ML VIAL SQ SCH ×2 (08:20→21:28)
[2019-10-06] MEDS: ASPIRIN 81 MG PO SCH (08:20)
[2019-10-06] MEDS: IPRATROPIUM-ALBUTEROL 3 ML NEB INHALATION SCH ×4 (08:38→21:00)
[2019-10-06] MEDS: FORMOTEROL FUMARATE 20 MCG/2 ML NEBU INHALATION SCH ×2 (08:38→21:00)
[2019-10-06] MEDS: BUDESONIDE 1 MG/2 ML NEBU INHALATION SCH ×2 (08:38→21:00)
--- NOTE | 2019-10-06 13:38 | P.PN ---
Subjective Progress Note Date: 10/06/19 Principal diagnosis: Acute exacerbation of chronic obstructive pulmonary disease This is a 68-year-old white male with history of severe end-stage COPD, FEV1 is in the range of 22%, patient is O2 dependent, prednisone dependent maintained on 10 mg of prednisone daily, and he is on 2 L of oxygen via nasal cannula. Patient normally sees Dr. Isaac for his COPD, and has been compliant with all his meds, quit smoking a while back. Patient has FEV1 was noted to be 22% at best. Came into the ER today with a few days' history of increased shortness of breath, cough, and fever. His cough was productive with whitish phlegm. No hemoptysis, no chest pain, no nausea no vomiting no abdominal pain. Patient is compliant with all his meds as listed including albuterol, Trelegy Ellipta, and prednisone. The patient has chronic edema in his lower extremities. No denies having any chest pain. Denies having any fever. His breathing has a progressively getting worse over this past 5 days. He oxygen level was holding of fluctuating, however, his artery was doing significantly high with minimal amount of activity. The patient had no significant leukocytosis. Chest x-ray was consistent with COPD. Influenza screen was negative. Rest of the blood work was all within normal limits. Echo of the heart showed an ejection fraction of 45-50% and there was no other significant valvular abnormalities. His concentric LVH. The patient is seen today 10/06/2019 in follow-up on the regular medical floor. He is currently sitting up at the bedside. Awake and alert in no acute distress. Breathing easier today compared to yesterday. Not quite back to his baseline. Maintaining O2 saturations in the mid 90s on 4 L/m per nasal cannula. He is afebrile. Hemodynamically stable. White count 17.6. Hemoglobin 11.8. Bicarb 38. Creatinine 0.82. He is continued on DuoNeb inhalations, Pulmicort and Perforomist inhalations, IV Solu-Medrol. Antibiotics in form of ceftriaxone and azithromycin. Continue on IV diuretics. Objective - Vital Signs Vital signs: Vital Signs Temp 98.0 F 10/06/19 05:00 Pulse 104 H 10/06/19 11:30 Resp 19 10/06/19 05:00 BP 125/72 10/06/19 05:00 Pulse Ox 95 10/06/19 05:00 Intake & Output 10/05/19 10/06/19 10/06/19 18:59 06:59 18:59 Output Total 415 450 Balance -415 -450 Output: Urine 415 450 Other: Voiding Method Toilet Urinal - Exam GENERAL EXAM: Alert, 68-year-old gentleman, on 4 L nasal cannula, comfortable in no apparent distress. HEAD: Normocephalic. EYES: Normal reaction of pupils, equal size. NOSE: Clear with pink turbinates. THROAT: No erythema or exudates. NECK: No masses, no JVD. CHEST: No chest wall deformity. LUNGS: Equal air entry with bilateral end expiratory wheeze, few scattered rhonchi, diminished CVS: S1 and S2 normal with no audible murmur, regular rhythm. ABDOMEN: No hepatosplenomegaly, normal bowel sounds, no guarding or rigidity. SPINE: No scoliosis or deformity SKIN: No rashes CENTRAL NERVOUS SYSTEM: No focal deficits, tone is normal in all 4 extremities. EXTREMITIES: There is no peripheral edema. No clubbing, no cyanosis. Peripheral pulses are intact. - Labs CBC & Chem 7: 10/06/19 07:13 10/06/19 07:13 Labs: Abnormal Lab Results - Last 24 Hours (Table) 10/06/19 10/06/19 Range/Units 07:13 07:13 WBC 17.6 H (3.8-10.6) k/uL Hgb 11.8 L (13.0-17.5) gm/dL MCHC 30.1 L (31.0-37.0) g/dL Neutrophils # 16.2 H (1.3-7.7) k/uL Lymphocytes # 0.7 L (1.0-4.8) k/uL Chloride 95 L (98-107) mmol/L Carbon Dioxide 38 H (22-30) mmol/L BUN 31 H (9-20) mg/dL Glucose 137 H (74-99) mg/dL Assessment and Plan Assessment: 1 Acute exacerbation of COPD and tracheobronchitis, no clear-cut evidence of pneumonia on the chest x-ray. The patient is having increased shortness of breath secondary to COPD exacerbation 2 severe oxygen and steroid dependent COPD with an FEV1 of 22% of predicted 3 chronic dyspnea secondary to above 4 history of smoking quit many years back in 2014 5 chronic lower extremity edema 6 systolic heart failure with an ejection fraction of 45% 7 generalized anxiety disorder maintained on Xanax. Plan The patient was seen and evaluated by Dr. Mcgill Continue the current treatment plan Decrease IV Solu-Medrol Probable discharge in the a.m. We'll continue to follow I, the cosigning physician, performed a history & physical examination of the patient. Lungs sounds with bilateral end expiratory wheeze, few scattered rhonchi, diminished. Maintaining good O2 saturations in the 90s on 4 L/m per nasal cannula. I discussed the assessment and plan of care with my nurse practitioner, Adrianna Wesley. I attest to the above note as dictated by her.
--- NOTE | 2019-10-06 16:40 | XR ---
EXAMINATION TYPE: XR chest 1V portable DATE OF EXAM: 10/06/2019 COMPARISON: 10/04/2019 HISTORY: Congestive heart failure and shortness of breath TECHNIQUE: Single frontal view of the chest is obtained. FINDINGS: There is no focal air space opacity, pleural effusion, or pneumothorax seen. Pulmonary hy perinflation of underlying COPD. Coarsened interstitial lung markings are chronic. The cardiac silhou ette size is within normal limits. Diffuse osseous demineralization. IMPRESSION: Chronic interstitial prominence and underlying COPD. No acute process.
--- NOTE | 2019-10-06 18:57 | PN ---
PROGRESS NOTE DATE OF SERVICE: 10/06/2019 This 68-year-old gentleman who was admitted with shortness of breath and as well as chronic obstructive pulmonary disease acute exacerbation as well as some CHF acute exacerbation is being closely monitored. The patient still has significant shortness of breath. Most recent chest x-ray is not available. Pulmonary following the patient closely. PAST MEDICAL HISTORY: Reviewed. REVIEW OF SYSTEMS: Cardiovascular system: No angina or palpitations. RESPIRATORY: As mentioned earlier. GI no nausea or vomiting. no dysuria. Nervous system: No numbness or weakness. ALLERGIES/IMMUNOLOGY: As mentioned earlier. CURRENT MEDICATIONS: Reviewed and include: 1. Tylenol p.r.n. 2. [place] 5 mg. 3. DuoNeb q.i.d. and p.r.n. 4. Xanax. 5. Aspirin. 6. Zithromax 500 mg. 7. Pulmicort. 8. Rocephin 1 g. 9. Perforomist. 10.Lasix. 11.Heparin. 12.Solu-Medrol 60 IV q.6h. 13.Multivitamins. 14.Narcan. 15.Protonix. PHYSICAL EXAMINATION: The patient is alert and oriented x3. The pulse is 100. Blood pressure is 126/73. Respirations 19, temp 97.8, pulse ox 98% on room air. HEENT: Conjunctivae normal. Oral mucosa moist. NECK: No JVD. No carotid bruit. No lymph node enlargement. CARDIOVASCULAR: S1, S2 muffled. RESPIRATIONS: Breath sounds diminished in the bases. Bilateral scattered rhonchi and crackles. Expiratory wheezing also present. ABDOMEN: Soft. Obese. Nontender. LEGS: No edema. No swelling. Nervous System: No focal deficits. LABS: WBC 17.6, hemoglobin 11.8, sodium 130, potassium 5 and CO2 is 38. ASSESSMENT: 1. Shortness of breath possibly multifactorial, chronic obstructive pulmonary disease, acute exacerbation as well as acute purulent tracheobronchitis as well as congestive heart failure acute exacerbation with acute on chronic systolic dysfunction, ejection fraction 40-50 percent. 2. Possible acute on chronic cor pulmonale. 3. Left leg cellulitis improving. 4. Increased WBC. 5. Anemia, normocytic anemia of chronic disease. 6. History of chronic obstructive pulmonary disease. 7. History of congestive heart failure, ejection fraction unknown. 8. History of pneumonia. 9. History of chronic hypoxic respiratory failure on 2 L nasal cannula. 10.Remote history of nicotine dependence. 11.Obesity, with body mass index of 33.2. RECOMMENDATIONS AND DISCUSSION: Recommend to continue current medications, continue to monitor, symptomatic treatment. Otherwise, at this time, I recommend continue the bronchodilators. I would recommend a chest x-ray for followup. Limit fluid intake. Guarded prognosis because of multiple complex medical issues and further recommendations to follow. Discussed with the patient, discussed with staff and the patient is extremely keen on going home. Continue to monitor. Closely follow with Dr. Mcgill. Further recommendations to follow. We will cut down the dose of steroids today too. MMODL / IJN: [id number] /
[2019-10-06] MEDS: AZITHROMYCIN 500 MG in SODIUM CHLORIDE 0.9% 250 ML IVPB SCH (21:29)
[2019-10-07] MEDS: ALPRAZolam 0.25 MG TAB PO PRN ×2 (06:16→15:53)
[2019-10-07 06:31] VITALS: BP 140/73; RESP 20; TEMP 97.7
[2019-10-07 06:39] LABS: Basophils % (A) 0 %; Eosinophils % (A) 0 %; HCT 41.2 % (39.0-53.0); HGB 12.4 gm/dL (13.0-17.5); Hypochromasia Slight; Lymphocytes # (A) 0.7 k/uL (1.0-4.8); Lymphocytes % (A) 4 %; MCH 26.3 pg (25.0-35.0); MCHC 30.1 g/dL (31.0-37.0); MCV 87.6 fL (80.0-100.0); Mean Platelet Volume 7.5; Monocytes % (A) 5 %; Neutrophils % (A) 90 %; Platelet Count 396 k/uL (150-450); RDW 13.7 % (11.5-15.5); WBC 18.8 k/uL (3.8-10.6)
[2019-10-07 06:48] LABS: Calcium 9.2 mg/dL (8.4-10.2); Potassium 4.8 mmol/L (3.5-5.1)
[2019-10-07] MEDS: IPRATROPIUM-ALBUTEROL 3 ML NEB INHALATION SCH ×3 (08:16→15:37)
[2019-10-07] MEDS: FORMOTEROL FUMARATE 20 MCG/2 ML NEBU INHALATION SCH (08:17)
[2019-10-07] MEDS: BUDESONIDE 1 MG/2 ML NEBU INHALATION SCH (08:17)
[2019-10-07] MEDS: PANTOPRAZOLE 40 MG TABLET PO SCH (08:22)
[2019-10-07] MEDS: MULTIVITAMINS, THERA 1 EACH TAB PO SCH (08:22)
[2019-10-07] MEDS: HEPARIN SODIUM,PORCINE 5,000 UNIT/ML 1 ML VIAL SQ SCH (08:23)
[2019-10-07] MEDS: ASPIRIN 81 MG PO SCH (08:23)
[2019-10-07] MEDS: methylPREDNISolone SOD SUCCI 40 MG/ML 1 ML VIAL IV SCH ×2 (08:23→15:48)
[2019-10-07] MEDS: FUROSEMIDE 10 MG/ML 4 ML VIAL IV SCH (08:23)
--- NOTE | 2019-10-07 12:21 | P.PN ---
Subjective Progress Note Date: 10/07/19 On today's evaluation of 10/07/2019, the patient is improving. The patient is short of breath. I think it's reasonable to assume that the patient can discharge home on a high-dose prednisone burst taper which will be a slow taper starting with 60 mg to be tapered by 10 mg every 4 days as the patient takes a maintenance of 10 mg of prednisone a daily basis. No chest pain. No major hemodynamic instability. No fever. No chills. No nausea. No vomiting. No abdominal pain. While at rest, he feels well. He gets short of breath with activity. He has a home nebulizer and he has also home maintenance treatment for COPD. No angina. No palpitation. No other complaints otherwise for now. Objective - Vital Signs Vital signs: Vital Signs Temp 97.7 F 10/07/19 06:05 Pulse 96 10/07/19 11:45 Resp 20 10/07/19 06:05 BP 140/73 10/07/19 06:05 Pulse Ox 98 10/07/19 06:05 Intake & Output 10/06/19 10/07/19 10/07/19 18:59 06:59 18:59 Intake Total 540 Output Total 300 1100 Balance 540 -300 -1100 Intake: Oral 540 Output: Urine 300 1100 Other: Voiding Method Toilet Urinal # Voids 6 2 - Exam GENERAL EXAM: Alert, 68-year-old gentleman, on 4 L nasal cannula, comfortable in no apparent distress. HEAD: Normocephalic. EYES: Normal reaction of pupils, equal size. NOSE: Clear with pink turbinates. THROAT: No erythema or exudates. NECK: No masses, no JVD. CHEST: No chest wall deformity. LUNGS: Equal air entry with bilateral end expiratory wheeze, few scattered rhonchi, diminished CVS: S1 and S2 normal with no audible murmur, regular rhythm. ABDOMEN: No hepatosplenomegaly, normal bowel sounds, no guarding or rigidity. SPINE: No scoliosis or deformity SKIN: No rashes CENTRAL NERVOUS SYSTEM: No focal deficits, tone is normal in all 4 extremities. EXTREMITIES: There is no peripheral edema. No clubbing, no cyanosis. Peripheral pulses are intact. - Labs CBC & Chem 7: 10/07/19 05:45 10/07/19 05:45 Labs: Abnormal Lab Results - Last 24 Hours (Table) 10/07/19 10/07/19 Range/Units 05:45 05:45 WBC 18.8 H (3.8-10.6) k/uL Hgb 12.4 L (13.0-17.5) gm/dL MCHC 30.1 L (31.0-37.0) g/dL Neutrophils # 17.0 H (1.3-7.7) k/uL Lymphocytes # 0.7 L (1.0-4.8) k/uL Chloride 92 L (98-107) mmol/L Carbon Dioxide 40 H (22-30) mmol/L BUN 36 H (9-20) mg/dL Glucose 122 H (74-99) mg/dL Assessment and Plan Plan: 1 Acute exacerbation of COPD and tracheobronchitis, no clear-cut evidence of pneumonia on the chest x-ray. The patient is having increased shortness of breath secondary to COPD exacerbation 2 severe oxygen and steroid dependent COPD with an FEV1 of 22% of predicted 3 chronic dyspnea secondary to above 4 history of smoking quit many years back in 2014 5 chronic lower extremity edema 6 systolic heart failure with an ejection fraction of 45% 7 generalized anxiety disorder maintained on Xanax. Plan The patient is clinically improving. This continued IV Solu-Medrol and discharge patient home on a slow prednisone burst taper starting with 60 mg to be tapered by 10 mg every 4 days. He has a maintenance 10 mg of and is on a daily basis. Continue Trelegy Ellipta and albuterol as needed. Possible discharge in the afternoon today.
[2019-10-07 15:46] VITALS: PULSE 100
--- NOTE | 2019-10-07 18:48 | DS ---
DISCHARGE SUMMARY DATE OF SERVICE: 10/07/2019 FINAL DIAGNOSES: 1. Shortness of breath possibly multifactorial, chronic obstructive pulmonary disease acute exacerbation as well as acute purulent tracheobronchitis as well as congestive heart failure acute exacerbation with acute on chronic systolic dysfunction, ejection fraction 45% to 50%. 2. Possible acute on chronic cor pulmonale. 3. Left leg cellulitis, improved. 4. Increased WBC. 5. Anemia, normocytic anemia of chronic disease. 6. History of chronic obstructive pulmonary disease. 7. History of congestive heart failure. 8. History of pneumonia. 9. History of chronic hypoxic respiratory failure on 2 L nasal cannula. 10.Remote history of nicotine dependence. 11.Obesity with body mass index 33.2. DISCHARGE DISPOSITION: The patient is being discharged in stable condition with guarded prognosis. HISTORY OF PRESENT ILLNESS: This 68-year-old gentleman with a past medical history of multiple medical problems was admitted with shortness of breath, COPD and CHF in the past, treated symptomatically. Patient improved significantly. Dr. Mcgill saw the patient during the hospitalization. The chest x-ray was reviewed which showed significant improvement. The patient is keen on going home at this time. Dr. Mcgill cleared the patient for discharge. Total time taken 35 minutes. The patient being followed by Dr. Isaac in the outpatient setting. On exam, vitals are stable. Cardiovascular: S1, S2. RESPIRATION: A few scattered rhonchi. ABDOMEN soft. NERVOUS SYSTEM: No focal deficits. DISCHARGE INSTRUCTIONS: 1. Discharge diet is cardiac diet. 2. Activity limited until followup. 3. Follow up with Dr. Isaac in 1-2 days. 4. CBC, BMP. DISCHARGE MEDICATIONS: 1. Klor-Con 20 mEq p.o. daily. 2. Lasix 40 mg p.o. daily. 3. Prednisone 10 mg daily after tapering. 4. Fluticasone [place] 1 puff daily. 5. Albuterol p.r.n. 6. Xanax 0.5 t.i.d. 7. Ceftin 500 mg p.o. b.i.d. for 3 days. 8. DuoNeb q.i.d. and p.r.n. 9. Multivitamins 1 p.o. daily. 10.Prednisone 50 mg daily for 4 days, 40 mg daily for 4 days, 30 for 4 days, 20 for 4 days and then continue with 10. 11.Pulmicort 1 mg b.i.d. Once again, the patient is being discharged in stable condition with guarded prognosis. MMJEMAL / EDUARDN: [id number] /
== END 2019-10-07 17:38 | disposition home or self-care (01) | DRG 190 ==
LOC: EC 17:24 → 6NMEDSUR 19:57 → OBSVTOIN 10-05 12:54
PROVIDERS: ADMIT Hospitalist; ATTEND Hospitalist
DX: J43.9 Emphysema, unspecified (principal); I50.23 Acute on chronic systolic (congestive) heart failure; J96.11 Chronic respiratory failure with hypoxia; L03.115 Cellulitis of right lower limb; L03.116 Cellulitis of left lower limb; D63.8 Anemia in other chronic diseases classified elsewhere; E66.9 Obesity, unspecified; F41.1 Generalized anxiety disorder; I27.81 Cor pulmonale (chronic); J20.9 Acute bronchitis, unspecified; Z87.891 Personal history of nicotine dependence; Z68.33 Body mass index [BMI] 33.0-33.9, adult; Z79.52 Long term (current) use of systemic steroids; Z79.82 Long term (current) use of aspirin; Z79.899 Other long term (current) drug therapy; Z82.49 Family history of ischemic heart disease and other diseases of the circulatory system; Z87.01 Personal history of pneumonia (recurrent); Z99.81 Dependence on supplemental oxygen; Z88.2 Allergy status to sulfonamides
CPT/HCPCS: 36415; 71045; 71046; 80048; 80053; 81003; 83605; 83735; 83880; 84484; 85025; 85610; 85730; 87502; 93005; 93306; 94640; 94760; 96365; 99285

== ENCOUNTER 2020-04-09 20:03 | Emergency (ER) | payer MEDICARE, OTHER ==
[2020-04-09] MEDS ORDERED: HYDROmorphone 1 MG/ML 1 ML SYRINGE IVP STA (20:34)
[2020-04-09] MEDS ORDERED: ONDANSETRON 4 MG/2 ML VIAL IVP STA (20:34)
[2020-04-09] MEDS ORDERED: SODIUM CHLORIDE 0.9% 500 ML 500 ML IV STA (20:34)
--- NOTE | 2020-04-09 20:38 | ED ---
General Adult HPI - General Chief complaint: Back Pain/Injury Stated complaint: Back Pain Time Seen by Provider: 04/09/20 20:30 Source: patient Mode of arrival: EMS Limitations: no limitations - History of Present Illness Initial comments: 69-year-old male patient presents to the emergency department today for evaluation of mid back pain radiating around to his abdomen. Patient states that the pain started suddenly approximately 4 hours ago. Denies any ripping or pulling sensation but states that the pain is aching and piercing. He denies any nausea, vomiting, constipation, or diarrhea. Denies any hematuria, dysuria, urinary frequency, urinary urgency. Denies history of similar symptoms. Denies history of back pain or injury. He does have a history of COPD and oxygen. He denies ever having been told that he has abdominal or thoracic aortic aneurysm. He is a former smoker. Has had hernia repair to the abdomen and the past but no other surgeries. He denies any chest pain or shortness of breath. Denies unusual cough. Patient denies any recent rash, fever, chills, numbness, tingling, dizziness, weakness, headache, visual changes, or any other complaints. - Related Data Home Medications Medication Instructions Recorded Confirmed ALPRAZolam [Xanax] 0.25 mg PO TID PRN 10/27/17 10/05/19 Albuterol Inhaler (Mhu) [Ventolin 2 puff INHALATION RT-Q6H PRN 10/27/17 10/05/19 Hfa Inhaler (Mhu)] Albuterol Nebulized [Ventolin 2.5 mg INHALATION RT-QID PRN 10/05/19 10/05/19 Nebulized] Fluticasone/Umeclidin/Vilanter 1 puff INHALATION RT-DAILY 10/05/19 10/05/19 [Trelegy Ellipta 100-62.5-25] Furosemide [Lasix] 40 mg PO DAILY 10/05/19 10/05/19 Potassium Chloride [Klor-Con 20] 20 meq PO DAILY 10/05/19 10/05/19 predniSONE 10 mg PO DAILY 10/05/19 10/05/19 Previous Rx's Medication Instructions Recorded Cefuroxime Axetil [Ceftin] 500 mg PO BID 3 Days #6 tab 10/07/19 Multivitamins, Thera [Multivitamin 1 each PO DAILY@1200 #30 tab 10/07/19 (formulary)] predniSONE 10 mg PO DIRECTED #60 tab 10/07/19 Budesonide [Pulmicort] 1 mg INHALATION BID 30 Days #60 neb 10/08/19 Ipratropium-Albuterol Nebulize 3 ml INHALATION QID 30 Days #120 10/08/19 [Duoneb 0.5 mg-3 mg/3 ml Soln] neb Allergies Allergy/AdvReac Type Severity Reaction Status Date / Time Sulfa (Sulfonamide Allergy Unknown Verified 04/09/20 20:23 Antibiotics) Review of Systems ROS Statement: Those systems with pertinent positive or pertinent negative responses have been documented in the HPI. ROS Other: All systems not noted in ROS Statement are negative. Past Medical History Past Medical History: Heart Failure, COPD, Pneumonia Additional Past Medical History / Comment(s): home 02 2-3 liters nc, emphysema History of Any Multi-Drug Resistant Organisms: None Reported Past Surgical History: Hernia Repair, Tonsillectomy Additional Past Surgical History / Comment(s): rt ing hernia Past Anesthesia/Blood Transfusion Reactions: Motion Sickness Past Psychological History: No Psychological Hx Reported Smoking Status: Former smoker Past Alcohol Use History: None Reported Past Drug Use History: None Reported - Past Family History Mother Family Medical History: Congestive Heart Failure (CHF) Additional Family Medical History / Comment(s): Father Family Medical History: Coronary Artery Disease (CAD) Additional Family Medical History / Comment(s): "hardening of the arteries" General Exam Limitations: no limitations General appearance: alert, in no apparent distress, other (This is a well- developed, well-nourished adult male patient in no acute distress. Vital signs upon presentation are temperature 98.4F, pulse 84, respirations 20, blood pressure 133/75, pulse ox 99% on room air.) ENT exam: Present: normal exam, normal oropharynx, mucous membranes moist Respiratory exam: Present: normal lung sounds bilaterally. Absent: respiratory distress, wheezes, rales, rhonchi, stridor Cardiovascular Exam: Present: regular rate, normal rhythm, normal heart sounds. Absent: systolic murmur, diastolic murmur, rubs, gallop, clicks GI/Abdominal exam: Present: soft, guarding, normal bowel sounds. Absent: distended, tenderness, rebound, rigid Neurological exam: Present: alert, oriented X3, CN II-XII intact Psychiatric exam: Present: normal affect, normal mood Skin exam: Present: warm, dry, intact, normal color. Absent: rash Course Vital Signs 04/09/20 04/09/20 04/09/20 20:23 21:12 22:30 Temperature 98.4 F Pulse Rate 84 83 85 Respiratory 20 18 20 Rate Blood Pressure 133/75 128/72 143/75 O2 Sat by Pulse 99 100 100 Oximetry 04/10/20 00:00 Temperature 98.0 F Pulse Rate 84 Respiratory 18 Rate Blood Pressure 139/81 O2 Sat by Pulse 100 Oximetry EKG Findings - EKG Comments: EKG Findings:: EKG obtained at 2053 shows sinus rhythm with occasional PVCs. Ventricular rate is 85, UT interval 136, QRS duration 80, QT 388, QTC 461. No e vidence of ST elevation or depression. Medical Decision Making - Medical Decision Making 69-year-old male patient presents to the emergency department today for evaluation of generalized abdominal pain and mid back pain. Patient denied any increased shortness of breath or chest discomfort. Physical examination revealed nontender abdomen with some guarding in the upper abdomen. No CVA tenderness. Labs reviewed and did reveal elevated white blood cell count at 13.6, elevated lactic acid at 2.4. Trop negative. We did perform CT of the thora cic, abdominal, and pelvic aorta that showed no evidence for dissection or other abnormalities. On that CT scan the gallbladder was enlarged. We did perform ultrasound of the gallbladder which showed multiple gallstones and dilation with no evidence for cholecystitis. Negative Mascorro sign. I did discuss all findings and results with the patient. He will be discharged to follow-up with his primary care physician and general surgery for further evaluation of his gallstones. We did discuss return parameters in detail. He verbalizes understanding and agrees with this plan - Lab Data Result diagrams: 04/09/20 20:57 04/09/20 20:57 Lab Results 04/09/20 04/09/20 04/09/20 Range/Units 20:57 20:57 20:57 WBC 13.6 H (3.8-10.6) k/uL RBC 4.61 (4.30-5.90) m/uL Hgb 11.9 L (13.0-17.5) gm/dL Hct 38.8 L (39.0-53.0) % MCV 84.3 (80.0-100.0) fL MCH 25.8 (25.0-35.0) pg MCHC 30.6 L (31.0-37.0) g/dL RDW 13.9 (11.5-15.5) % Plt Count 342 (150-450) k/uL Neutrophils % 80 % Lymphocytes % 9 % Monocytes % 6 % Eosinophils % 2 % Basophils % 0 % Neutrophils # 11.0 H (1.3-7.7) k/uL Lymphocytes # 1.3 (1.0-4.8) k/uL Monocytes # 0.9 (0-1.0) k/uL Eosinophils # 0.3 (0-0.7) k/uL Basophils # 0.1 (0-0.2) k/uL Hypochromasia Marked PT 9.7 (9.0-12.0) sec INR 0.9 (<1.2) APTT 18.9 L (22.0-30.0) sec Sodium 139 (137-145) mmol/L Potassium 4.3 (3.5-5.1) mmol/L Chloride 97 L (98-107) mmol/L Carbon Dioxide 37 H (22-30) mmol/L Anion Gap 5 mmol/L BUN 27 H (9-20) mg/dL Creatinine 0.88 (0.66-1.25) mg/dL Est GFR (CKD-EPI)AfAm >90 (>60 ml/min/1.73 sqM) Est GFR (CKD-EPI)NonAf 87 (>60 ml/min/1.73 sqM) Glucose 133 H (74-99) mg/dL Lactic Ac Sepsis Rflx Plasma Lactic Acid Rj (0.7-2.0) mmol/L Calcium 9.2 (8.4-10.2) mg/dL Total Bilirubin 0.5 (0.2-1.3) mg/dL AST 28 (17-59) U/L ALT 20 (4-49) U/L Alkaline Phosphatase 111 (38-126) U/L Troponin I (0.000-0.034) ng/mL Total Protein 6.6 (6.3-8.2) g/dL Albumin 3.8 (3.5-5.0) g/dL Amylase 41 (30-110) U/L Lipase 121 (23-300) U/L Urine Color Urine Appearance (Clear) Urine pH (5.0-8.0) Ur Specific Gulliver (1.001-1.035) Urine Protein (Negative) Urine Glucose (UA) (Negative) Urine Ketones (Negative) Urine Blood (Negative) Urine Nitrite (Negative) Urine Bilirubin (Negative) Urine Urobilinogen (<2.0) mg/dL Ur Leukocyte Esterase (Negative) 04/09/20 04/09/20 04/09/20 Range/Units 20:57 21:41 22:34 WBC (3.8-10.6) k/uL RBC (4.30-5.90) m/uL Hgb (13.0-17.5) gm/dL Hct (39.0-53.0) % MCV (80.0-100.0) fL MCH (25.0-35.0) pg MCHC (31.0-37.0) g/dL RDW (11.5-15.5) % Plt Count (150-450) k/uL Neutrophils % % Lymphocytes % % Monocytes % % Eosinophils % % Basophils % % Neutrophils # (1.3-7.7) k/uL Lymphocytes # (1.0-4.8) k/uL Monocytes # (0-1.0) k/uL Eosinophils # (0-0.7) k/uL Basophils # (0-0.2) k/uL Hypochromasia PT (9.0-12.0) sec INR (<1.2) APTT (22.0-30.0) sec Sodium (137-145) mmol/L Potassium (3.5-5.1) mmol/L Chloride (98-107) mmol/L Carbon Dioxide (22-30) mmol/L Anion Gap mmol/L BUN (9-20) mg/dL Creatinine (0.66-1.25) mg/dL Est GFR (CKD-EPI)AfAm (>60 ml/min/1.73 sqM) Est GFR (CKD-EPI)NonAf (>60 ml/min/1.73 sqM) Glucose (74-99) mg/dL Lactic Ac Sepsis Rflx Y Plasma Lactic Acid Rj 2.4 H* (0.7-2.0) mmol/L Calcium (8.4-10.2) mg/dL Total Bilirubin (0.2-1.3) mg/dL AST (17-59) U/L ALT (4-49) U/L Alkaline Phosphatase (38-126) U/L Troponin I (0.000-0.034) ng/mL Total Protein (6.3-8.2) g/dL Albumin (3.5-5.0) g/dL Amylase (30-110) U/L Lipase (23-300) U/L Urine Color Yellow Urine Appearance Clear (Clear) Urine pH 6.5 (5.0-8.0) Ur Specific Gulliver >1.050 H (1.001-1.035) Urine Protein Trace H (Negative) Urine Glucose (UA) Negative (Negative) Urine Ketones Negative (Negative) Urine Blood Negative (Negative) Urine Nitrite Negative (Negative) Urine Bilirubin Negative (Negative) Urine Urobilinogen 2.0 (<2.0) mg/dL Ur Leukocyte Esterase Negative (Negative) 04/10/20 04/10/20 Range/Units 00:30 00:40 WBC (3.8-10.6) k/uL RBC (4.30-5.90) m/uL Hgb (13.0-17.5) gm/dL Hct (39.0-53.0) % MCV (80.0-100.0) fL MCH (25.0-35.0) pg MCHC (31.0-37.0) g/dL RDW (11.5-15.5) % Plt Count (150-450) k/uL Neutrophils % % Lymphocytes % % Monocytes % % Eosinophils % % Basophils % % Neutrophils # (1.3-7.7) k/uL Lymphocytes # (1.0-4.8) k/uL Monocytes # (0-1.0) k/uL Eosinophils # (0-0.7) k/uL Basophils # (0-0.2) k/uL Hypochromasia PT (9.0-12.0) sec INR (<1.2) APTT (22.0-30.0) sec Sodium (137-145) mmol/L Potassium (3.5-5.1) mmol/L Chloride (98-107) mmol/L Carbon Dioxide (22-30) mmol/L Anion Gap mmol/L BUN (9-20) mg/dL Creatinine (0.66-1.25) mg/dL Est GFR (CKD-EPI)AfAm (>60 ml/min/1.73 sqM) Est GFR (CKD-EPI)NonAf (>60 ml/min/1.73 sqM) Glucose (74-99) mg/dL Lactic Ac Sepsis Rflx Plasma Lactic Acid Rj 1.0 (0.7-2.0) mmol/L Calcium (8.4-10.2) mg/dL Total Bilirubin (0.2-1.3) mg/dL AST (17-59) U/L ALT (4-49) U/L Alkaline Phosphatase (38-126) U/L Troponin I <0.012 (0.000-0.034) ng/mL Total Protein (6.3-8.2) g/dL Albumin (3.5-5.0) g/dL Amylase (30-110) U/L Lipase (23-300) U/L Urine Color Urine Appearance (Clear) Urine pH (5.0-8.0) Ur Specific Gulliver (1.001-1.035) Urine Protein (Negative) Urine Glucose (UA) (Negative) Urine Ketones (Negative) Urine Blood (Negative) Urine Nitrite (Negative) Urine Bilirubin (Negative) Urine Urobilinogen (<2.0) mg/dL Ur Leukocyte Esterase (Negative) - Radiology Data Radiology results: report reviewed, image reviewed CT angiography the thoracic, abdominal, pelvic aorta is obtained. Report was reviewed in its entirety. Impression by Dr. Nowak shows atherosclerotic vascular disease. Moderate plaque formation the abdominal aorta and its branches. I do not see definite hemodynamic stenosis. No evidence of aortic aneurysm. Large gallbladder could relate to some gallbladder dysfunction. Cholecystitis is possible. COPD. Ultrasound of the right upper quadrant was obtained. Report was reviewed in its entirety. Impression by Dr. Nowak shows numerous gallstones. Common bile duct was not seen. I see no dilation of the intrahepatic ducts. No ascites. No focal liver defect. Disposition Clinical Impression: Abdominal pain, Gallstones Disposition: HOME SELF-CARE Condition: Good Instructions (If sedation given, give patient instructions): Gallstones (ED), Abdominal Pain (ED) Additional Instructions: Take medications as directed. Follow-up with your primary care physician for recheck in 1-2 days. Make an appointment with the general surgeon to discuss your gallstones. Return to the emergency department immediately for any new, worsening, or concerning symptoms. Is patient prescribed a controlled substance at d/c from ED?: No Referrals: Julius Isaac DO [Primary Care Provider] - 1-2 days Minoo Julien MD [STAFF PHYSICIAN] - 1-2 days Time of Disposition: 00:30
[2020-04-09 21:24] LABS: Basophils # (A) 0.1 k/uL (0-0.2); Basophils % (A) 0 %; Eosinophils # (A) 0.3 k/uL (0-0.7); Eosinophils % (A) 2 %; HCT 38.8 % (39.0-53.0); HGB 11.9 gm/dL (13.0-17.5); Hypochromasia Marked; Lymphocytes # (A) 1.3 k/uL (1.0-4.8); Lymphocytes % (A) 9 %; MCH 25.8 pg (25.0-35.0); MCHC 30.6 g/dL (31.0-37.0); MCV 84.3 fL (80.0-100.0); Mean Platelet Volume 8.1; Monocytes # (A) 0.9 k/uL (0-1.0); Monocytes % (A) 6 %; Neutrophils % (A) 80 %; Platelet Count 342 k/uL (150-450); RBC 4.61 m/uL (4.30-5.90); RDW 13.9 % (11.5-15.5); WBC 13.6 k/uL (3.8-10.6)
[2020-04-09 21:35] LABS: ALT 20 U/L (4-49); AST 28 U/L (17-59); African American GFR (CKD) >90 (>60 ml/min/1.73 sqM); Albumin 3.8 g/dL (3.5-5.0); Alkaline Phosphatase 111 U/L (38-126); Amylase 41 U/L (30-110); Anion Gap 5 mmol/L; Blood Urea Nitrogen 27 mg/dL (9-20); Calcium 9.2 mg/dL (8.4-10.2); Carbon Dioxide 37 mmol/L (22-30); Chloride 97 mmol/L (98-107); Glucose 133 mg/dL (74-99); Non-African American GFR(CKD) 87 (>60 ml/min/1.73 sqM); Potassium 4.3 mmol/L (3.5-5.1); Sodium 139 mmol/L (137-145); Total Bilirubin 0.5 mg/dL (0.2-1.3); Total Protein 6.6 g/dL (6.3-8.2)
[2020-04-09 21:47] LABS: INR 0.9 (<1.2); Prothrombin Time 9.7 sec (9.0-12.0)
[2020-04-09 21:49] LABS: Partial Thromboplastin Time 18.9 sec (22.0-30.0)
--- NOTE | 2020-04-09 22:07 | CT ---
EXAMINATION TYPE: CT angio thor/abd pel aorta DATE OF EXAM: 04/09/2020 COMPARISON: HISTORY: chest/abdominal/back pain, cough, SOB CT DLP: 1791.3 mGycm Automated exposure control for dose reduction was used. CONTRAST: Performed with IV Contrast, patient injected with 100 mL of Isovue 370. Images were obtained from the thoracic inlet to the floor the pelvis without and subsequently with IV contrast. There are 3-D post processed images. There is some pulmonary emphysema. There is no pleural effusion. There is no pericardial effusion. Th ere are no hilar masses. There is no mediastinal adenopathy. The lungs are clear of consolidation. There is normal contrast opacification of the thoracic aorta. There is no aneurysm or dissection. I s ee no filling defects in the pulmonary arteries. There is arterial flow in the celiac artery and superior mesenteric artery. There is arterial flow in both renal arteries. There is atheromatous change in the abdominal aorta. There is arterial flow in the iliac and femoral arteries. Liver spleen pancreas stomach appear intact. Bile ducts are not dilated. There is dilated gallbladder that measures 12.5 cm in length. The diameter is 3.8 cm. There is no adrenal mass. Kidneys show satisfactory contrast opacification. There is no hydronephrosi s. Bladder distends smoothly. There is no inguinal hernia. There are numerous diverticula in the sigmoid colon. There is no diverticulitis. Appendix is posterio r and appears normal. There is no evidence of a bowel obstruction. There is no mesenteric edema. Ther e is no ascites. IMPRESSION: Atherosclerotic vascular disease. Moderate plaque formation in the abdominal aorta and its branches. I do not see definite hemodynamic stenosis. No evidence of aortic aneurysm. Large gallbladder could relate to some gallbladder dysfunction. Stephania cystitis is possible. COPD.
[2020-04-09 22:47] LABS: Appearance,Urine Clear (Clear); Bilirubin,Urine Negative (Negative); Blood,Urine Negative (Negative); Color,Urine Yellow; Glucose,Urine (UA) Negative (Negative); Ketones,Urine Negative (Negative); Leukocyte Esterase,Urine Negative (Negative); Nitrite,Urine Negative (Negative); PH, Urine 6.5 (5.0-8.0); Protein,Urine Trace (Negative)
[2020-04-09 22:57] LABS: Specific Gravity,Urine >1.050 (1.001-1.035)
[2020-04-10 00:10] VITALS: BP 139/81; PULSE 84; RESP 18; TEMP 98
--- NOTE | 2020-04-10 00:13 | US ---
EXAMINATION TYPE: US abdomen limited DATE OF EXAM: 04/09/2020 COMPARISON: CT CLINICAL HISTORY: Abd pain; abnormal CT gallbladder. Abdominal pain x [address] Hx herni a surgery. EXAM MEASUREMENTS: Liver Length: 18.5 cm Gallbladder Wall: 0.36 cm CBD: Not visualized Right Kidney: 10.8 x 5.8 x 5.2 cm Limited due to patient body habitus, position, and bowel gas. Pancreas: Limited due to gas. Liver: Limited. Measures enlarged. Appears hyperechoic and coarse. Increased attenuation. Gallbladder: Measures enlarged at 13.1 cm in length. Multiple hyperechoic areas seen within the gall bladder. Largest appears to measure 1.6 x 1.4 x 1.2 cm. Wall measures slightly thickened. Evidence for sonographic Mascorro's sign: No CBD: Not visualized Right Kidney: No hydronephrosis or masses seen IMPRESSION: There are numerous gallstones. Common bile duct is not seen. I see no dilation of the int rahepatic bile ducts. No ascites. No focal liver defect.
[2020-04-10] MEDS ORDERED: ACET/COD 300 MG/30 MG STARTER PACK 6 TAB BTL PO STA (00:35)
== END 2020-04-10 01:00 | disposition home or self-care (01) ==
LOC: EC 20:03
DX: K80.20 Calculus of gallbladder without cholecystitis without obstruction (principal); M54.6 Pain in thoracic spine; D72.829 Elevated white blood cell count, unspecified; R79.89 Other specified abnormal findings of blood chemistry; J44.9 Chronic obstructive pulmonary disease, unspecified; I50.9 Heart failure, unspecified; Z79.51 Long term (current) use of inhaled steroids; Z79.899 Other long term (current) drug therapy; Z79.52 Long term (current) use of systemic steroids; Z88.2 Allergy status to sulfonamides; Z99.81 Dependence on supplemental oxygen; Z87.891 Personal history of nicotine dependence
CPT/HCPCS: 36415; 93005; 80053; 82150; 83605; 83690; 85025; 85610; 85730; 81003; 76705; 71275; 74174; 96374; 96375; 96361 ×4; 99284; J2405; J1170; Q9967; 84484

== ENCOUNTER 2020-09-08 12:34 | Inpatient (IN) | payer MEDICARE, OTHER ==
[2020-09-08] MEDS ORDERED: IPRATROPIUM 0.5 MG/2.5 ML NEBU INHALATION STA (12:39)
[2020-09-08] MEDS ORDERED: ALBUTEROL NEBULIZED 2.5 MG/3 ML INHALATION STA (12:39)
[2020-09-08] MEDS ORDERED: methylPREDNISolone SOD SUCCI 125 MG/2 ML VIAL IV STA (12:40)
--- NOTE | 2020-09-08 12:49 | ED ---
General Adult HPI - General Chief complaint: Shortness of Breath Stated complaint: SOB Time Seen by Provider: 09/08/20 12:34 Source: patient, EMS, RN notes reviewed, old records reviewed Mode of arrival: EMS Limitations: altered mental status, physical limitation - History of Present Illness Initial comments: 69-year-old male presenting for evaluation of unresponsive episode, hypoxia. Patient is on 5 L O2. He was found by EMS unresponsive and EMS reported that his oxygen was not on. He has had increased cough and congestion. He denies fever. He is alert and oriented to time my evaluation. He had been treated with BiPAP during transport. He is uncertain why his oxygen was off. When EMS arrived the oxygen saturation was in the 70s. He was cyanotic. He states that he's had some decreased intake secondary to poor appetite. Additionally he has had a drain placed in his gallbladder. Because he states he was not a surgical candidate for cholecystectomy. - Related Data Home Medications Medication Instructions Recorded Confirmed Fluticasone/Umeclidin/Vilanter 1 puff INHALATION RT-DAILY 10/05/19 09/08/20 [Trelegy Ellipta 100-62.5-25] Furosemide [Lasix] 40 mg PO DAILY 10/05/19 09/08/20 Potassium Chloride [Klor-Con 20] 20 meq PO DAILY 10/05/19 09/08/20 ALPRAZolam [Xanax] 0.5 mg PO TID PRN 09/08/20 09/08/20 Acetaminophen-Codeine 300-30mg 1 - 2 tab PO Q8H PRN 09/08/20 09/08/20 [Tylenol w/codeine #3] Albuterol Sulfate [Ventolin HFA] 1 - 2 puff INHALATION RT-Q6H PRN 09/08/20 Atorvastatin [Lipitor] 20 mg PO DAILY 09/08/20 09/08/20 Budesonide [Pulmicort] 0.5 mg INHALATION RT-BID 09/08/20 09/08/20 Ipratropium-Albuterol Nebulize 3 ml INHALATION RT-QID 09/08/20 09/08/20 [Duoneb 0.5 mg-3 mg/3 ml Soln] carvediloL [Coreg] 6.25 mg PO BID 09/08/20 09/08/20 lisinopriL [Zestril] 5 mg PO DAILY 09/08/20 09/08/20 predniSONE [Deltasone] 20 mg PO DAILY 09/08/20 09/08/20 Allergies Allergy/AdvReac Type Severity Reaction Status Date / Time Sulfa (Sulfonamide Allergy Unknown Verified 09/08/20 14:45 Antibiotics) Review of Systems ROS Statement: Those systems with pertinent positive or pertinent negative responses have been documented in the HPI. ROS Other: All systems not noted in ROS Statement are negative. Past Medical History Past Medical History: Heart Failure, COPD, Pneumonia Additional Past Medical History / Comment(s): home 02 2-3 liters nc, emphysema History of Any Multi-Drug Resistant Organisms: None Reported Past Surgical History: Hernia Repair, Tonsillectomy Additional Past Surgical History / Comment(s): rt ing hernia, recent drain for gallbladder issue Past Anesthesia/Blood Transfusion Reactions: Motion Sickness Past Psychological History: No Psychological Hx Reported Smoking Status: Former smoker Past Alcohol Use History: None Reported Past Drug Use History: None Reported - Past Family History Mother Family Medical History: Congestive Heart Failure (CHF) Additional Family Medical History / Comment(s): Father Family Medical History: Coronary Artery Disease (CAD) Additional Family Medical History / Comment(s): "hardening of the arteries" General Exam Limitations: altered mental status, physical limitation General appearance: alert, in distress (Mild respiratory distress) Head exam: Present: atraumatic, normocephalic Eye exam: Present: normal appearance, PERRL ENT exam: Present: normal exam Neck exam: Present: normal inspection. Absent: tenderness Respiratory exam: Present: respiratory distress, wheezes, rhonchi, accessory muscle use Cardiovascular Exam: Present: regular rate, normal rhythm GI/Abdominal exam: Present: soft, other (Drain). Absent: distended, tenderness, guarding Extremities exam: Present: pedal edema. Absent: calf tenderness Neurological exam: Present: alert. Absent: motor sensory deficit Skin exam: Present: warm, dry, intact Course Vital Signs 09/08/20 09/08/20 09/08/20 12:38 13:20 13:45 Temperature 97.6 F Pulse Rate 95 80 82 Respiratory 22 22 24 Rate Blood Pressure 139/90 82/63 81/44 O2 Sat by Pulse 100 98 99 Oximetry 09/08/20 09/08/20 09/08/20 14:00 14:21 14:30 Temperature Pulse Rate 82 85 104 H Respiratory 22 24 Rate Blood Pressure 85/46 78/45 O2 Sat by Pulse 98 99 Oximetry 09/08/20 09/08/20 15:00 15:21 Temperature Pulse Rate 96 Respiratory 22 22 Rate Blood Pressure 73/47 82/52 O2 Sat by Pulse 100 99 Oximetry EKG Findings - EKG Comments: EKG Findings:: EKG: Normal sinus rhythm, rate of 92, CA interval 146, QRS duration 78, QTC [address] segment elevation. Medical Decision Making - Medical Decision Making 69-year-old male history of COPD on home oxygen presents with an episode of se niyah respiratory distress, hypoxia after being found unresponsive by EMS. He had been placed on CPAP and is alert and oriented the time my evaluation. Patient has significant lab abnormalities including acute renal failure with a creatinine of 6, potassium of 7.9 is treated with IV fluid, as well as calcium, dextrose, insulin, bicarbonate. He has a chest x-ray which is concerning for atelectasis or early pneumonia. Blood pressure had initially been in the 70s. This does respond to fluids. He has a normal lactic acid. Case is discussed with Dr. Galan who will admit and the patient has been evaluated by Dr. Montgomery in the emergency department. Case discussed with Dr. Gaona covering for the ICU, patient will be admitted to the ICU. - Lab Data Result diagrams: 09/08/20 12:56 09/08/20 14:41 Lab Results 09/08/20 09/08/20 09/08/20 Range/Units 12:56 12:56 12:56 WBC 13.3 H (3.8-10.6) k/uL RBC 3.05 L (4.30-5.90) m/uL Hgb 7.9 L (13.0-17.5) gm/dL Hct 24.6 L (39.0-53.0) % MCV 80.5 (80.0-100.0) fL MCH 25.8 (25.0-35.0) pg MCHC 32.0 (31.0-37.0) g/dL RDW 15.7 H (11.5-15.5) % Plt Count 274 (150-450) k/uL MPV 7.9 Neutrophils % 80 % Lymphocytes % 10 % Monocytes % 7 % Eosinophils % 1 % Basophils % 0 % Neutrophils # 10.7 H (1.3-7.7) k/uL Lymphocytes # 1.4 (1.0-4.8) k/uL Monocytes # 0.9 (0-1.0) k/uL Eosinophils # 0.2 (0-0.7) k/uL Basophils # 0.0 (0-0.2) k/uL Hypochromasia Slight PT 10.0 (9.0-12.0) sec INR 0.9 (<1.2) APTT 17.7 L (22.0-30.0) sec VBG pH (7.31-7.41) VBG pCO2 (37-51) mmHg VBG HCO3 (24-28) mmol/L Sodium 133 L (137-145) mmol/L Potassium 6.9 H* (3.5-5.1) mmol/L Chloride 96 L (98-107) mmol/L Carbon Dioxide 26 (22-30) mmol/L Anion Gap 11 mmol/L BUN 143 H* (9-20) mg/dL Creatinine 6.34 H (0.66-1.25) mg/dL Est GFR (CKD-EPI)AfAm 9 (>60 ml/min/1.73 sqM) Est GFR (CKD-EPI)NonAf 8 (>60 ml/min/1.73 sqM) Glucose 141 H (74-99) mg/dL Plasma Lactic Acid Rj (0.7-2.0) mmol/L Calcium 9.4 (8.4-10.2) mg/dL Total Bilirubin 0.5 (0.2-1.3) mg/dL AST 21 (17-59) U/L ALT 27 (4-49) U/L Alkaline Phosphatase 85 (38-126) U/L NT-Pro-B Natriuret Pep pg/mL Total Protein 6.2 L (6.3-8.2) g/dL Albumin 3.5 (3.5-5.0) g/dL Coronavirus (PCR) (Not Detectd) 09/08/20 09/08/20 09/08/20 Range/Units 12:56 12:56 12:56 WBC (3.8-10.6) k/uL RBC (4.30-5.90) m/uL Hgb (13.0-17.5) gm/dL Hct (39.0-53.0) % MCV (80.0-100.0) fL MCH (25.0-35.0) pg MCHC (31.0-37.0) g/dL RDW (11.5-15.5) % Plt Count (150-450) k/uL MPV Neutrophils % % Lymphocytes % % Monocytes % % Eosinophils % % Basophils % % Neutrophils # (1.3-7.7) k/uL Lymphocytes # (1.0-4.8) k/uL Monocytes # (0-1.0) k/uL Eosinophils # (0-0.7) k/uL Basophils # (0-0.2) k/uL Hypochromasia PT (9.0-12.0) sec INR (<1.2) APTT (22.0-30.0) sec VBG pH 7.31 (7.31-7.41) VBG pCO2 52 H (37-51) mmHg VBG HCO3 26 (24-28) mmol/L Sodium (137-145) mmol/L Potassium (3.5-5.1) mmol/L Chloride (98-107) mmol/L Carbon Dioxide (22-30) mmol/L Anion Gap mmol/L BUN (9-20) mg/dL Creatinine (0.66-1.25) mg/dL Est GFR (CKD-EPI)AfAm (>60 ml/min/1.73 sqM) Est GFR (CKD-EPI)NonAf (>60 ml/min/1.73 sqM) Glucose (74-99) mg/dL Plasma Lactic Acid Rj 1.5 (0.7-2.0) mmol/L Calcium (8.4-10.2) mg/dL Total Bilirubin (0.2-1.3) mg/dL AST (17-59) U/L ALT (4-49) U/L Alkaline Phosphatase (38-126) U/L NT-Pro-B Natriuret Pep 714 pg/mL Total Protein (6.3-8.2) g/dL Albumin (3.5-5.0) g/dL Coronavirus (PCR) (Not Detectd) 02/15/21 02/15/21 Range/Units 14:41 14:53 WBC (3.8-10.6) k/uL RBC (4.30-5.90) m/uL Hgb (13.0-17.5) gm/dL Hct (39.0-53.0) % MCV (80.0-100.0) fL MCH (25.0-35.0) pg MCHC (31.0-37.0) g/dL RDW (11.5-15.5) % Plt Count (150-450) k/uL MPV Neutrophils % % Lymphocytes % % Monocytes % % Eosinophils % % Basophils % % Neutrophils # (1.3-7.7) k/uL Lymphocytes # (1.0-4.8) k/uL Monocytes # (0-1.0) k/uL Eosinophils # (0-0.7) k/uL Basophils # (0-0.2) k/uL Hypochromasia PT (9.0-12.0) sec INR (<1.2) APTT (22.0-30.0) sec VBG pH (7.31-7.41) VBG pCO2 (37-51) mmHg VBG HCO3 (24-28) mmol/L Sodium 134 L (137-145) mmol/L Potassium (3.5-5.1) mmol/L Chloride 97 L (98-107) mmol/L Carbon Dioxide 27 (22-30) mmol/L Anion Gap 10 mmol/L BUN (9-20) mg/dL Creatinine 6.11 H (0.66-1.25) mg/dL Est GFR (CKD-EPI)AfAm 10 (>60 ml/min/1.73 sqM) Est GFR (CKD-EPI)NonAf 8 (>60 ml/min/1.73 sqM) Glucose 174 H (74-99) mg/dL Plasma Lactic Acid Rj (0.7-2.0) mmol/L Calcium 9.2 (8.4-10.2) mg/dL Total Bilirubin (0.2-1.3) mg/dL AST (17-59) U/L ALT (4-49) U/L Alkaline Phosphatase (38-126) U/L NT-Pro-B Natriuret Pep pg/mL Total Protein (6.3-8.2) g/dL Albumin (3.5-5.0) g/dL Coronavirus (PCR) Not Detected (Not Detectd) Critical Care Time Critical Care Time: Yes Total Critical Care Time: 35 Disposition Clinical Impression: Acute exacerbation of chronic obstructive pulmonary disease, Acute renal failure, Hyperkalemia, Hypovolemia Disposition: ADMITTED IP TO THIS [facility] Condition: Serious Is patient prescribed a controlled substance at d/c from ED?: No Referrals: Julius Isaac DO [Primary Care Provider] - 1-2 days Decision to Admit Reason: Admit from EC Decision Date: 09/08/20 Decision Time: 15:18
[2020-09-08 13:11] LABS: Basophils % (A) 0 %; Eosinophils # (A) 0.2 k/uL (0-0.7); Eosinophils % (A) 1 %; HCT 24.6 % (39.0-53.0); HGB 7.9 gm/dL (13.0-17.5); Hypochromasia Slight; Lymphocytes # (A) 1.4 k/uL (1.0-4.8); Lymphocytes % (A) 10 %; MCH 25.8 pg (25.0-35.0); MCV 80.5 fL (80.0-100.0); Mean Platelet Volume 7.9; Monocytes # (A) 0.9 k/uL (0-1.0); Monocytes % (A) 7 %; Neutrophils # (A) 10.7 k/uL (1.3-7.7); Neutrophils % (A) 80 %; Platelet Count 274 k/uL (150-450); RBC 3.05 m/uL (4.30-5.90); RDW 15.7 % (11.5-15.5); VBG PH 7.31 (7.31-7.41); WBC 13.3 k/uL (3.8-10.6)
[2020-09-08 13:23] LABS: Albumin 3.5 g/dL (3.5-5.0); Calcium 9.4 mg/dL (8.4-10.2); Total Bilirubin 0.5 mg/dL (0.2-1.3); Total Protein 6.2 g/dL (6.3-8.2)
[2020-09-08 13:28] LABS: INR 0.9 (<1.2)
[2020-09-08 13:29] LABS: Partial Thromboplastin Time 17.7 sec (22.0-30.0)
[2020-09-08 13:32] LABS: Potassium 6.9 mmol/L (3.5-5.1)
[2020-09-08] MEDS ORDERED: SODIUM CHLORIDE 0.9% 1,000 ML IV ONE (13:47)
[2020-09-08] MEDS ORDERED: INSULIN REGULAR 100 UNIT/ML VIAL IV ONE ×3 (13:48→22:34)
[2020-09-08] MEDS ORDERED: SODIUM CHLORIDE 0.9% 500 ML 500 ML IV ONE ×2 (13:48→15:08)
[2020-09-08] MEDS ORDERED: SODIUM POLYSTYRENE SULFONATE 15 GM/60 ML BOTTLE PO ONE (13:48)
[2020-09-08] MEDS ORDERED: CALCIUM GLUCONATE 1 GM in SODIUM CHLORIDE 0.9% 100 ML IVPB ONE ×3 (13:48→22:45)
--- NOTE | 2020-09-08 13:49 | XR ---
EXAMINATION TYPE: XR chest 2V DATE OF EXAM: 09/08/2020 COMPARISON: 10/06/2019 HISTORY: 69 year-old male shortness of breath, difficulty breathing TECHNIQUE: AP and lateral views FINDINGS: Heart normal size. Aorta and pulmonary vasculature within normal limits. Patchy left basilar and anna pheral right midlung opacity. No pleural effusion. IMPRESSION: Either some patchy atelectasis or developing infiltrate in the periphery of the right midlung and at the left base.
[2020-09-08] MEDS: SODIUM BICARB 8.4% 50 ML SYR (1 MEQ/ML) IV ONE ×2 (13:56→19:24)
[2020-09-08] MEDS: DEXTROSE 50% SYRINGE 50 ML IVP ONE ×2 (13:56→19:31)
[2020-09-08] MEDS ORDERED: AZITHROMYCIN 500 MG in SODIUM CHLORIDE 0.9% 250 ML IVPB STA (13:59)
[2020-09-08] MEDS ORDERED: ACETAMINOPHEN TAB 325 MG TAB PO PRN (14:22)
[2020-09-08] MEDS ORDERED: NALOXONE 0.4 MG/ML 1 ML VIAL IV PRN (14:22)
[2020-09-08 15:05] LABS: Calcium 9.2 mg/dL (8.4-10.2)
[2020-09-08] MEDS: SODIUM CHLORIDE 0.9% 1,000 ML IV SCH ×2 (15:15→23:32)
[2020-09-08 16:23] LABS: Glucose,Whole Blood 117 mg/dL (75-99)
--- NOTE | 2020-09-08 17:19 | US ---
EXAMINATION TYPE: US kidneys/renal and bladder DATE OF EXAM: 09/08/2020 COMPARISON: US ABD limited CLINICAL HISTORY: GIULIANO. GIULIANO EXAM MEASUREMENTS: Right Kidney: 10.8 x 5.0 x 5.3 cm Left Kidney: 11.0 x 6.1 x 5.7 cm Limited views due to overlying bowel gas Right Kidney: No evidence of hydro, upper and lower poles difficult to visualize due to overlying bow el gas Left Kidney: No evidence of hydro, upper and lower poles difficult to visualize due to overlying ian l gas Bladder: Pt refused tech to image bladder IMPRESSION: No evidence of renal mass or obstruction. Urinary bladder was not evaluated.
--- NOTE | 2020-09-08 17:37 | P.HPIM ---
History of Present Illness Patient is a 69-year-old male came in for an episode of unresponsiveness secondary to hypoxemia he is his of oxygen patient's oxygen is found to be in saturations of 70s cyanotic. Patient does have advanced COPD uses 4 L at home. Patient denied any fever chills nausea vomiting patient does have leukocytosis chest x-ray showing possible infiltrate in the right right middle lobe and left lower lobe. Patient was treated with BiPAP when he was transported to ER. Patient is also found to have elevated creatinine of almost 6. His baseline creatinine around 1. 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 Patient remained hypotensive in spite of aggressive fluid hydration patient is also hyponatremic patient the had poor appetite leading to poor by mouth intake. Patient is also on lisinopril. Review of Systems REVIEW OF SYSTEMS: CONSTITUTIONAL: No fever, no malaise, no fatigue. HEENT: No recent visual problems or hearing problems. Denied any sore throat. CARDIOVASCULAR: No chest pain, orthopnea, PND, no palpitations, no syncope. PULMONARY: As mentioned in HPI GASTROINTESTINAL: No diarrhea, no nausea, no vomiting, no abdominal pain. NEUROLOGICAL: No headaches, no weakness, no numbness. HEMATOLOGICAL: Denies any bleeding or petechiae. GENITOURINARY: Denies any burning micturition, frequency, or urgency. MUSCULOSKELETAL/RHEUMATOLOGICAL: Denies any joint pain, swelling, or any muscle pain. ENDOCRINE: Denies any polyuria or polydipsia. The rest of the 14-point review of systems is negative. Past Medical History Past Medical History: Heart Failure, COPD, Pneumonia Additional Past Medical History / Comment(s): home 02 2-3 liters nc, emphysema. Gall bladder needs to be removed, drain intact History of Any Multi-Drug Resistant Organisms: None Reported Past Surgical History: Hernia Repair, Tonsillectomy Additional Past Surgical History / Comment(s): rt ing hernia, recent drain for gallbladder issue Past Anesthesia/Blood Transfusion Reactions: Motion Sickness Past Psychological History: No Psychological Hx Reported Additional Psychological History / Comment(s): pt is independant. son lives with him. pt works as engineering laboratory technician. no past service. has home 02, nebulizer. Smoking Status: Former smoker Past Alcohol Use History: None Reported Additional Past Alcohol Use History / Comment(s): started smoking at age 14 smoked 2 ppd and quit 2013. Past Drug Use History: None Reported - Past Family History Mother Family Medical History: Congestive Heart Failure (CHF) Additional Family Medical History / Comment(s): Father Family Medical History: Coronary Artery Disease (CAD) Additional Family Medical History / Comment(s): "hardening of the arteries" Medications and Allergies Home Medications Medication Instructions Recorded Confirmed Type Fluticasone/Umeclidin/Vilanter 1 puff INHALATION RT-DAILY 10/05/19 09/08/20 History [Trelegy Ellipta 100-62.5-25] Furosemide [Lasix] 40 mg PO DAILY 10/05/19 09/08/20 History Potassium Chloride [Klor-Con 20] 20 meq PO DAILY 10/05/19 09/08/20 History ALPRAZolam [Xanax] 0.5 mg PO TID PRN 09/08/20 09/08/20 History Acetaminophen-Codeine 300-30mg 1 - 2 tab PO Q8H PRN 09/08/20 09/08/20 History [Tylenol w/codeine #3] Albuterol Sulfate [Ventolin HFA] 1 - 2 puff INHALATION RT-Q6H PRN 09/08/20 09/08/20 History Atorvastatin [Lipitor] 20 mg PO DAILY 09/08/20 09/08/20 History Budesonide [Pulmicort] 0.5 mg INHALATION RT-BID 09/08/20 09/08/20 History Ipratropium-Albuterol Nebulize 3 ml INHALATION RT-QID 09/08/20 09/08/20 History [Duoneb 0.5 mg-3 mg/3 ml Soln] carvediloL [Coreg] 6.25 mg PO BID 09/08/20 09/08/20 History lisinopriL [Zestril] 5 mg PO DAILY 09/08/20 09/08/20 History predniSONE [Deltasone] 20 mg PO DAILY 09/08/20 09/08/20 History Allergies Allergy/AdvReac Type Severity Reaction Status Date / Time Sulfa (Sulfonamide Allergy Unknown Verified 09/08/20 14:45 Antibiotics) Physical Exam Vitals: Vital Signs Temp Pulse Resp BP Pulse Ox 09/08/20 15:54 97.6 F 110 H 24 81/53 99 09/08/20 15:21 22 82/52 99 09/08/20 15:00 96 22 73/47 100 09/08/20 14:30 104 H 24 78/45 99 09/08/20 14:21 85 09/08/20 14:00 82 22 85/46 98 09/08/20 13:45 82 24 81/44 99 09/08/20 13:20 80 22 82/63 98 09/08/20 12:38 97.6 F 95 22 139/90 100 Intake and Output 09/08/20 09/08/20 09/08/20 06:59 14:59 22:59 Other: Weight 63.503 kg 63.503 kg PHYSICAL EXAMINATION: GENERAL: The patient is alert and oriented x3, not in any acute distress. Well developed, well nourished. Patient has some chills and tremors HEENT: Pupils are round and equally reacting to light. EOMI. No scleral icterus. No conjunctival pallor. Normocephalic, atraumatic. No pharyngeal erythema. No thyromegaly. CARDIOVASCULAR: S1 and S2 present. No murmurs, rubs, or gallops. PULMONARY: Chest is clear to auscultation, no wheezing or crackles. ABDOMEN: Soft, nontender, nondistended, normoactive bowel sounds. No palpable organomegaly. MUSCULOSKELETAL: No joint swelling or deformity. EXTREMITIES: No cyanosis, clubbing, or pedal edema. NEUROLOGICAL: Gross neurological examination did not reveal any focal deficits. SKIN: No rashes. Results CBC & Chem 7: 09/08/20 12:56 09/08/20 14:41 Labs: Abnormal Lab Results - Last 24 Hours (Table) 09/08/20 09/08/20 09/08/20 Range/Units 12:56 12:56 12:56 WBC 13.3 H (3.8-10.6) k/uL RBC 3.05 L (4.30-5.90) m/uL Hgb 7.9 L (13.0-17.5) gm/dL Hct 24.6 L (39.0-53.0) % RDW 15.7 H (11.5-15.5) % Neutrophils # 10.7 H (1.3-7.7) k/uL APTT 17.7 L (22.0-30.0) sec VBG pCO2 (37-51) mmHg Sodium 133 L (137-145) mmol/L Potassium 6.9 H* (3.5-5.1) mmol/L Chloride 96 L (98-107) mmol/L BUN 143 H* (9-20) mg/dL Creatinine 6.34 H (0.66-1.25) mg/dL Glucose 141 H (74-99) mg/dL POC Glucose (mg/dL) (75-99) mg/dL Total Protein 6.2 L (6.3-8.2) g/dL 09/08/20 09/08/20 09/08/20 Range/Units 12:56 14:41 16:22 WBC (3.8-10.6) k/uL RBC (4.30-5.90) m/uL Hgb (13.0-17.5) gm/dL Hct (39.0-53.0) % RDW (11.5-15.5) % Neutrophils # (1.3-7.7) k/uL APTT (22.0-30.0) sec VBG pCO2 52 H (37-51) mmHg Sodium 134 L (137-145) mmol/L Potassium (3.5-5.1) mmol/L Chloride 97 L (98-107) mmol/L BUN (9-20) mg/dL Creatinine 6.11 H (0.66-1.25) mg/dL Glucose 174 H (74-99) mg/dL POC Glucose (mg/dL) 117 H (75-99) mg/dL Total Protein (6.3-8.2) g/dL Assessment and Plan Plan: -Hypovolemic shock patient was assisted with 3 L of IV fluids in spite of which patient remained hypotensive because of which patient was transferred to the ICU and will reassess for need of any pressor support. Patient will be continued on normal saline at 1 30 mL per hour -Acute on chronic hypoxic and hypercapnic respiratory failure secondary to COPD exacerbation patient will be started on oral steroids I cannot completely rule out pneumonia patient will be started on antibiotics for pneumonia. -Acute renal failure: This most probably prerenal azotemia and can be acute tubular necrosis secondary to hypotension lisinopril will be held Coreg will be held and patient will be continued on IV fluids we'll obtain urinary bladder and renal ultrasound. Urine random sodium urine random creatinine will be obtained as well. -Hypertension patient is presently hypotensive and appears to have hypovolemic shock -History of a mild systolic dysfunction patient is presently hypovolemic not in heart failure exacerbation
[2020-09-08 18:27] LABS: Calcium 8.1 mg/dL (8.4-10.2)
[2020-09-08] MEDS: HYDROCORTISONE SUCCINATE 100 MG/2 ML VIAL IV SCH ×2 (18:31→23:31)
--- NOTE | 2020-09-08 18:35 | P.CNPUL ---
History of Present Illness Consult date: 09/08/20 Requesting physician: Kathy Montgomery Reason for consult: COPD (Hypoxemia), other Chief complaint: Unresponsiveness History of present illness: This is a 69-year-old white male with history of severe end-stage COPD, oxygen dependent, prednisone dependent, normally sees Dr. Isaac for his severe underlying COPD. Patient had a recent episode of acute cholecystitis, and he was seen at [facility], patient was felt to be a high surgical risk, and he underwent mostly cholecystostomy tube insertion. Continues to have the tube in place, draining biliary material. This was about a week and a half ago. Patient had a sudden episode of unresponsiveness witnessed by his son, patient was noted to be cyanotic, and his O2 saturation was in the 70s normally he is maintained on 4 L nasal cannula, and at that time his oxygen was off. Chest x- ray showed chronic bibasilar nonspecific opacities. EMS transported the patient on BiPAP to the emergency room, he was found to have significant abnormalities including minimal leukocytosis, hemoglobin of 7.9, WBC count of 13.3, but most surprisingly the patient was noted to have potassium of 6.9. BUN of 143. And creatinine of 6.34. His other labs were noted to be relatively unremarkable. Patient was admitted, transition to a nasal cannula, placed on bronchodilators, also placed on steroids, and nephrology will be seeing the patient for his acute renal failure and hyperkalemia. Discussed with the patient his CODE STATUS, patient wishes to be DO NOT RESUSCITATE CODE STATUS, mostly because of his severe underlying COPD. Patient is empirically on Rocephin and Zithromax, and he is on DuoNeb and Symbicort. In the emergency room, patient was noted to be hypotensive, received multiple fluid boluses, he was also noted to be hyponatremic, and considering his hypotension, patient was transferred to the ICU. Cultures are pending. Serology consultation is pending Review of Systems CONSTITUTIONAL: No weight loss no fever no chills. HEENT: Denies blurred vision dizziness headache sore throat. CARDIOVASCULAR: No chest pain, orthopnea, PND, no palpitations, no syncope. PULMONARY: As noted in HPI. GASTROINTESTINAL: No diarrhea, no nausea, no vomiting, no abdominal pain. Recent cholecystostomy tube. Since the patient was felt to be a poor surgical candidate for cholecystectomy. NEUROLOGICAL: Negative except for a syncopal episode. HEMATOLOGICAL: Negative. GENITOURINARY: Denies any burning micturition, frequency, or urgency. MUSCULOSKELETAL/RHEUMATOLOGICAL: . negative. Endocrine: Negative. Past Medical History Past Medical History: Heart Failure, COPD, Pneumonia Additional Past Medical History / Comment(s): home 02 2-3 liters nc, emphysema. Gall bladder needs to be removed, drain intact History of Any Multi-Drug Resistant Organisms: None Reported Past Surgical History: Hernia Repair, Tonsillectomy Additional Past Surgical History / Comment(s): rt ing hernia, recent drain for gallbladder issue Past Anesthesia/Blood Transfusion Reactions: Motion Sickness Past Psychological History: No Psychological Hx Reported Additional Psychological History / Comment(s): pt is independant. son lives with him. 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 has home 02, nebulizer. Smoking Status: Former smoker Past Alcohol Use History: None Reported Additional Past Alcohol Use History / Comment(s): started smoking at age 14 smoked 2 ppd and quit 2013. Past Drug Use History: None Reported - Past Family History Mother Family Medical History: Congestive Heart Failure (CHF) Additional Family Medical History / Comment(s): Father Family Medical History: Coronary Artery Disease (CAD) Additional Family Medical History / Comment(s): "hardening of the arteries" Medications and Allergies Home Medications Medication Instructions Recorded Confirmed Type Fluticasone/Umeclidin/Vilanter 1 puff INHALATION RT-DAILY 10/05/19 09/08/20 History [Trelegy Ellipta 100-62.5-25] Furosemide [Lasix] 40 mg PO DAILY 10/05/19 09/08/20 History Potassium Chloride [Klor-Con 20] 20 meq PO DAILY 10/05/19 09/08/20 History ALPRAZolam [Xanax] 0.5 mg PO TID PRN 09/08/20 09/08/20 History Acetaminophen-Codeine 300-30mg 1 - 2 tab PO Q8H PRN 09/08/20 09/08/20 History [Tylenol w/codeine #3] Albuterol Sulfate [Ventolin HFA] 1 - 2 puff INHALATION RT-Q6H PRN 09/08/20 09/08/20 History Atorvastatin [Lipitor] 20 mg PO DAILY 09/08/20 09/08/20 History Budesonide [Pulmicort] 0.5 mg INHALATION RT-BID 09/08/20 09/08/20 History Ipratropium-Albuterol Nebulize 3 ml INHALATION RT-QID 09/08/20 09/08/20 History [Duoneb 0.5 mg-3 mg/3 ml Soln] carvediloL [Coreg] 6.25 mg PO BID 09/08/20 09/08/20 History lisinopriL [Zestril] 5 mg PO DAILY 09/08/20 09/08/20 History predniSONE [Deltasone] 20 mg PO DAILY 09/08/20 09/08/20 History Allergies Allergy/AdvReac Type Severity Reaction Status Date / Time Sulfa (Sulfonamide Allergy Unknown Verified 09/08/20 14:45 Antibiotics) Physical Exam Vitals: Vital Signs Temp Pulse Resp BP Pulse Ox 09/08/20 18:00 97.7 F 96 21 86/33 97 09/08/20 17:30 96 17 78/52 97 09/08/20 17:00 98 13 71/40 98 09/08/20 16:30 92.2 F L 103 H 22 136/91 100 09/08/20 16:26 22 09/08/20 15:54 97.6 F 110 H 24 81/53 99 09/08/20 15:21 22 82/52 99 09/08/20 15:00 96 22 73/47 100 09/08/20 14:30 104 H 24 78/45 99 09/08/20 14:21 85 09/08/20 14:00 82 22 85/46 98 09/08/20 13:45 82 24 81/44 99 09/08/20 13:20 80 22 82/63 98 09/08/20 12:38 97.6 F 95 22 139/90 100 Intake and Output 09/08/20 09/08/20 09/08/20 06:59 14:59 22:59 Intake Total 1200 Output Total 150 Balance 1050 Intake: IV 1000 Sodium Chloride 0.9% 1, 1000 000 ml @ 999 mls/hr IV . Q1H1M [facility] Rx#:[id number] Oral 200 Output: Urine 150 Other: Weight 63.503 kg 90.9 kg Physical Exam: Revealed a 69 -year-old white male in no distress, 2 L oxygen via nasal cannula. Head: Atraumatic, normocephalic Eyes: PERRLA, EOMI. HEENT:[Neck is supple.] [No neck masses.] [No thyromegaly.] [No JVD.] Chest: [Diminished breath sound bilaterally, no rhonchi, no wheezes no crackles noted. Symmetrical chest expansion, no chest wall tenderness..] Cardiac Exam: [Normal S1 and S2, no S3 gallop, no murmur.] Abdomen: [Soft, nontender, no megaly, no rebound, no guarding, normal bowel sounds.] Cholecystostomy tube is noted in the right upper quadrant, connected to a bag collecting bilious material Extremities: [No clubbing, no edema, no cyanosis.] Multiple tattoos throughout the whole body were noted. Neurological Exam: [No focal neurologic deficit.] Lymphatics: No lymphadenopathy. Musculoskeletal: Normal range of motion and no limitations no deformities. Psychiatric: Normal mood affect and mental status examination. Results - Laboratory Findings CBC and BMP: 09/08/20 12:56 09/08/20 14:41 PT/INR, D-dimer PT 10.0 sec (9.0-12.0) 09/08/20 12:56 INR 0.9 (<1.2) 09/08/20 12:56 Abnormal lab findings: Abnormal Labs 09/08/20 09/08/20 09/08/20 12:56 12:56 12:56 WBC 13.3 H RBC 3.05 L Hgb 7.9 L Hct 24.6 L RDW 15.7 H Neutrophils # 10.7 H APTT 17.7 L VBG pCO2 Sodium 133 L Potassium 6.9 H* Chloride 96 L BUN 143 H* Creatinine 6.34 H Glucose 141 H POC Glucose (mg/dL) Total Protein 6.2 L 09/08/20 09/08/20 09/08/20 12:56 14:41 16:22 WBC RBC Hgb Hct RDW Neutrophils # APTT VBG pCO2 52 H Sodium 134 L Potassium Chloride 97 L BUN Creatinine 6.11 H Glucose 174 H POC Glucose (mg/dL) 117 H Total Protein - Diagnostic Findings Chest x-ray: report reviewed, image reviewed (Nonspecific findings noted on chest x-ray, most consistent with patchy atelectasis, doubt infiltrate) Assessment and Plan Assessment: Impression: Hypotension, most likely secondary to hypovolemia and hypovolemic shock, possibility of sepsis and septic shock is not entirely ruled out, felt to be less likely at this point, but it is not ruled out. Possible biliary sepsis. Acute renal failure/acute kidney injury could be hypovolemic in nature, or related to sepsis with hypotension and acute tubular necrosis. Patient will need to be hydrated, in the meantime will ask nephrology to evaluate. Severe end-stage COPD, O2 dependent, prednisone dependent, FEV1 is normal in the range of 23% Acute on chronic hypoxic respiratory failure secondary to severe COPD. Chronic cor pulmonale. History of cardiomyopathy and LV dysfunction, ejection fraction is normally 40%. Remote history of nicotine dependence. Recommendation: Continue to monitor in the ICU. Renal ultrasound to be done to rule out obstructive uropathy. Nephrology to see on consultation. Broaden the spectrum of antibiotics to cover for possible biliary sepsis. Prognosis is extremely poor and guarded. Discussed CODE STATUS with the patient, wishes to be DO NOT RESUSCITATE. We'll continue to follow Time with Patient: Greater than 30
[2020-09-08] MEDS ORDERED: SODIUM BICARB 8.4% 50 ML SYR (1 MEQ/ML) IV STA ×2 (19:02→22:34)
[2020-09-08 19:05] LABS: Potassium 6.5 mmol/L (3.5-5.1)
[2020-09-08] MEDS ORDERED: DEXTROSE 50% SYRINGE 50 ML IVP ONE (19:27)
[2020-09-08] MEDS ORDERED: BUDESONIDE 0.5 MG/2 ML NEBU INHALATION SCH (20:00)
[2020-09-08] MEDS: NOREPINEPHRINE 4 MG in SODIUM CHLORIDE 0.9% 250 ML IV SCH (20:27)
[2020-09-08] MEDS ORDERED: CEFEPIME 1 GM in SODIUM CHLORIDE 0.9% 50 ML IVPB ONE (21:00)
[2020-09-08] MEDS ORDERED: CEFEPIME 2 GM in SODIUM CHLORIDE 0.9% 100 ML IVPB SCH (21:00)
[2020-09-08] MEDS ORDERED: FUROSEMIDE 10 MG/ML 4 ML VIAL IV STA (22:34)
[2020-09-08] MEDS ORDERED: DEXTROSE 50% SYRINGE 50 ML IVP STA (22:34)
[2020-09-08] MEDS ORDERED: Acetaminophen-Codeine 300-30mg TAB PO PRN (23:16)
[2020-09-08] MEDS: HEPARIN SODIUM,PORCINE 5,000 UNIT/ML 1 ML VIAL SQ SCH (23:31)
[2020-09-08] MEDS: Acetaminophen-Codeine 300-30mg TAB PO PRN (23:32)
[2020-09-09] MEDS ORDERED: SODIUM BICARB 8.4% 50 ML SYR (1 MEQ/ML) IV STA (02:43)
[2020-09-09] MEDS ORDERED: CALCIUM GLUCONATE 1 GM in SODIUM CHLORIDE 0.9% 100 ML IVPB ONE (02:43)
[2020-09-09] MEDS ORDERED: DEXTROSE 50% SYRINGE 50 ML IVP STA (02:43)
[2020-09-09] MEDS ORDERED: INSULIN REGULAR 100 UNIT/ML VIAL IV ONE (02:43)
[2020-09-09] MEDS: NOREPINEPHRINE 4 MG in SODIUM CHLORIDE 0.9% 250 ML IV SCH (02:55)
[2020-09-09] MEDS: CALCIUM CARBONATE 500 MG CHEWABLE PO PRN ×3 (06:34→22:37)
[2020-09-09 07:06] LABS: Albumin 2.7 g/dL (3.5-5.0); Calcium 8.6 mg/dL (8.4-10.2); Potassium 5.3 mmol/L (3.5-5.1); Total Bilirubin 0.4 mg/dL (0.2-1.3)
[2020-09-09 07:10] LABS: Basophils % (A) 0 %; Eosinophils % (A) 0 %; Hypochromasia Moderate; Lymphocytes # (A) 0.4 k/uL (1.0-4.8); Lymphocytes % (A) 4 %; MCH 25.1 pg (25.0-35.0); MCHC 31.3 g/dL (31.0-37.0); MCV 80.3 fL (80.0-100.0); Mean Platelet Volume 7.9; Monocytes # (A) 0.4 k/uL (0-1.0); Monocytes % (A) 4 %; Neutrophils # (A) 9.2 k/uL (1.3-7.7); Neutrophils % (A) 91 %; Platelet Count 260 k/uL (150-450); RBC 2.47 m/uL (4.30-5.90)
[2020-09-09 07:19] LABS: HGB 6.2 gm/dL (13.0-17.5)
[2020-09-09 07:20] LABS: HCT 19.9 % (39.0-53.0)
[2020-09-09] MEDS: Acetaminophen-Codeine 300-30mg TAB PO PRN ×3 (08:27→22:37)
[2020-09-09] MEDS: CEFEPIME 1 GM in SODIUM CHLORIDE 0.9% 50 ML IVPB SCH ×2 (08:28→22:37)
[2020-09-09] MEDS: ATORVASTATIN 20 MG TAB PO SCH (08:28)
[2020-09-09] MEDS: HEPARIN SODIUM,PORCINE 5,000 UNIT/ML 1 ML VIAL SQ SCH ×2 (08:28→16:11)
[2020-09-09] MEDS: HYDROCORTISONE SUCCINATE 100 MG/2 ML VIAL IV SCH ×2 (08:28→16:11)
[2020-09-09] MEDS ORDERED: AZITHROMYCIN 500 MG TAB PO SCH (09:00)
[2020-09-09] MEDS ORDERED: predniSONE 20 MG TAB PO SCH (09:00)
[2020-09-09] MEDS: SODIUM CHLORIDE 0.9% 1,000 ML IV SCH ×2 (09:10→16:46)
[2020-09-09] MEDS: SYMBICORT 80-4.5 MCG INHALER INHALATION SCH ×2 (09:13→21:14)
[2020-09-09] MEDS: IPRATROPIUM 0.5 MG/2.5 ML NEBU INHALATION SCH ×4 (09:13→21:14)
[2020-09-09] MEDS ORDERED: ALBUTEROL HFA INHALER INHALATION PRN (09:28)
--- NOTE | 2020-09-09 10:01 | XR ---
EXAMINATION TYPE: XR chest 1V DATE OF EXAM: 09/09/2020 COMPARISON: 09/08/2020 HISTORY: Difficulty breathing TECHNIQUE: Single frontal view of the chest is obtained. FINDINGS: A patchy bilateral infiltrates are again noted. Underlying diffuse COPD. No overt failure or pneumothorax. Heart size normal. Atherosclerotic change aorta. IMPRESSION: COPD with bibasilar infiltrate.
--- NOTE | 2020-09-09 11:46 | P.NPCON ---
History of Present Illness - Reason for Consult acute renal failure, hyperkalemia - History of Present Illness Reason for consultation: Acute kidney injury History of present illness: A sign patient is a 69-year-old male seen in renal consultation for acute kidney injury and hyperkalemia. Patient presented to the hospital due to unresponsive episode and hypoxia. His oxygen wasn't on any was found by the EMS. He is currently awake and alert. His oxygen saturation is 93% on 4 L is a cannula. He was noted to be in renal failure on admission. Creatinine was 6.3 and is down to 2.74 today. He is nonoliguric. Patient has received 5 L of normal saline bolus and is currently maintained on normal saline at 1 30 mL an hour. Patient's creatinine as of March 2020 was 0.88. Additionally he was hyperkalemic with a potassium level of 6.9 on admission. This was medically treated and was down to 5.3 as of this morning. He denies any chest pain or shortness of breath at this time. No edema. He did have some vomiting prior to admission but none today. No diarrhea. Levophed has been discontinued. A gallbladder to placed at [facility] about 2 weeks ago which is still in place. Cultures are pending. Patient's hemoglobin is 6.2 this morning any scheduled to receive a unit of blood. No active bleeding noted per the nurse. He was on lisinopril as well as potassium supplementation at home which is held. Diuretics are also held. Vital signs are stable. General: The patient appeared well nourished and normally developed. HEENT: Head exam is unremarkable. Neck is without jugular venous distension. LUNGS: Breath sounds decreased. HEART: Rate and Rhythm are regular. ABDOMEN: Soft, nontender. Gallbladder tube noted with greenish drainage. EXTREMITITES: Trace edema. Past Medical History Past Medical History: Heart Failure, COPD, Pneumonia Additional Past Medical History / Comment(s): home 02 2-3 liters nc, emphysema. Gall bladder needs to be removed, drain intact History of Any Multi-Drug Resistant Organisms: None Reported Past Surgical History: Hernia Repair, Tonsillectomy Additional Past Surgical History / Comment(s): rt ing hernia, recent drain for gallbladder issue Past Anesthesia/Blood Transfusion Reactions: Motion Sickness Past Psychological History: No Psychological Hx Reported Additional Psychological History / Comment(s): pt is independant. son lives with him. 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 has home 02, nebulizer. Smoking Status: Former smoker Past Alcohol Use History: None Reported Additional Past Alcohol Use History / Comment(s): started smoking at age 14 smoked 2 ppd and quit 2013. Past Drug Use History: None Reported - Past Family History Mother Family Medical History: Congestive Heart Failure (CHF) Additional Family Medical History / Comment(s): Father Family Medical History: Coronary Artery Disease (CAD) Additional Family Medical History / Comment(s): "hardening of the arteries" Medications and Allergies Home Medications Medication Instructions Recorded Confirmed Type Fluticasone/Umeclidin/Vilanter 1 puff INHALATION RT-DAILY 10/05/19 09/08/20 History [Trelegy Ellipta 100-62.5-25] Furosemide [Lasix] 40 mg PO DAILY 10/05/19 09/08/20 History Potassium Chloride [Klor-Con 20] 20 meq PO DAILY 10/05/19 09/08/20 History ALPRAZolam [Xanax] 0.5 mg PO TID PRN 09/08/20 09/08/20 History Acetaminophen-Codeine 300-30mg 1 - 2 tab PO Q8H PRN 09/08/20 09/08/20 History [Tylenol w/codeine #3] Albuterol Sulfate [Ventolin HFA] 1 - 2 puff INHALATION RT-Q6H PRN 09/08/20 09/08/20 History Atorvastatin [Lipitor] 20 mg PO DAILY 09/08/20 09/08/20 History Budesonide [Pulmicort] 0.5 mg INHALATION RT-BID 09/08/20 09/08/20 History Ipratropium-Albuterol Nebulize 3 ml INHALATION RT-QID 09/08/20 09/08/20 History [Duoneb 0.5 mg-3 mg/3 ml Soln] carvediloL [Coreg] 6.25 mg PO BID 09/08/20 09/08/20 History lisinopriL [Zestril] 5 mg PO DAILY 09/08/20 09/08/20 History predniSONE [Deltasone] 20 mg PO DAILY 09/08/20 09/08/20 History Allergies Allergy/AdvReac Type Severity Reaction Status Date / Time Sulfa (Sulfonamide Allergy Unknown Verified 09/08/20 14:45 Antibiotics) Physical Exam Vitals: Vital Signs Temp Pulse Resp BP Pulse Ox 09/09/20 11:00 98 15 90/52 93 L 09/09/20 10:30 101 H 16 91/51 89 L 09/09/20 10:00 102 H 19 101/53 89 L 09/09/20 09:33 98 09/09/20 09:30 99 20 119/60 89 L 09/09/20 09:14 100 09/09/20 09:00 93 19 106/61 91 L 09/09/20 08:30 96 29 H 114/60 93 L 09/09/20 08:00 98.9 F 107 H 19 110/56 92 L 09/09/20 07:45 101 H 22 94 L 09/09/20 07:30 98 17 106/50 93 L 09/09/20 07:15 94 18 106/50 96 09/09/20 07:00 105 H 21 106/56 93 L 09/09/20 06:45 92 18 106/56 94 L 09/09/20 06:30 96 20 85/53 94 L 09/09/20 06:15 96 18 85/53 93 L 09/09/20 06:00 93 16 89/54 94 L 09/09/20 05:45 19 89/54 92 L 09/09/20 05:30 11 L 96/52 95 09/09/20 05:15 101 H 19 96/52 94 L 09/09/20 05:00 96 17 107/55 94 L 09/09/20 04:45 96 15 107/55 95 09/09/20 04:30 98 15 83/55 09/09/20 04:15 94 14 83/55 95 09/09/20 04:00 98.2 F 95 13 85/57 95 09/09/20 03:45 101 H 15 85/57 92 L 09/09/20 03:30 98 15 96/50 92 L 09/09/20 03:15 110 H 20 96/50 90 L 09/09/20 03:00 95 16 103/66 93 L 09/09/20 02:45 98 15 103/66 93 L 09/09/20 02:30 18 100/54 96 09/09/20 02:15 92 11 L 100/54 96 02/16/21 02:00 95 14 92/39 96 09/09/20 01:45 92 14 92/39 98 09/09/20 01:30 86 14 104/48 99 09/09/20 01:15 87 14 104/48 100 09/09/20 01:00 90 14 95/51 98 09/09/20 00:45 89 15 95/51 98 09/09/20 00:30 90 13 99/67 98 09/09/20 00:15 96 16 99/67 97 09/09/20 00:00 109 H 28 H 113/61 95 09/08/20 23:52 111 H 09/08/20 23:45 20 113/61 99 09/08/20 23:38 112 H 09/08/20 23:30 107 H 21 123/63 98 09/08/20 23:15 109 H 20 123/63 96 09/08/20 23:00 120 H 28 H 93/73 95 09/08/20 22:45 96 23 83/45 97 09/08/20 22:30 90 19 89/48 96 09/08/20 22:16 87 19 92/48 95 09/08/20 22:15 91 20 92/48 95 09/08/20 22:00 89 25 H 99/47 96 09/08/20 21:45 96 25 H 96/46 94 L 09/08/20 21:30 91 25 H 73/41 95 09/08/20 21:15 99 27 H 95/49 95 09/08/20 21:00 105 H 24 97/48 95 09/08/20 20:45 91 22 68/43 97 09/08/20 20:30 99 18 73/32 96 09/08/20 20:15 106 H 22 73/32 96 09/08/20 20:00 97.3 F L 109 H 18 70/53 96 09/08/20 19:45 117 H 23 70/53 97 09/08/20 19:30 100 19 77/51 96 09/08/20 19:00 103 H 20 94/44 97 09/08/20 18:30 105 H 21 96/43 97 09/08/20 18:00 97.7 F 96 21 86/33 97 09/08/20 17:30 96 17 78/52 97 09/08/20 17:00 98 13 71/40 98 09/08/20 16:30 92.2 F L 103 H 22 136/91 100 09/08/20 16:26 22 09/08/20 15:54 97.6 F 110 H 24 81/53 99 09/08/20 15:21 22 82/52 99 09/08/20 15:00 96 22 73/47 100 09/08/20 14:30 104 H 24 78/45 99 09/08/20 14:21 85 09/08/20 14:00 82 22 85/46 98 09/08/20 13:45 82 24 81/44 99 09/08/20 13:20 80 22 82/63 98 09/08/20 12:38 97.6 F 95 22 139/90 100 Intake and Output 09/08/20 09/09/20 09/09/20 22:59 06:59 14:59 Intake Total 2986.017 1212.011 674.465 Output Total 800 2400 690 Balance 2186.017 -1187.989 -15.535 Intake: IV 2650 1040 390 Sodium Chloride 0.9% 1, 650 1040 390 000 ml @ 130 mls/hr IV . [id number] [facility] Rx#:[id number] Sodium Chloride 0.9% 1, 2000 000 ml @ 999 mls/hr IV . Q1H1M [facility] Rx#:[id number] Intake, IV Titration 136.017 172.011 284.465 Amount Calcium Gluconate 1 gm In 100 Sodium Chloride 0.9% 100 ml @ 100 mls/hr IVPB ONCE ONE Rx#:[id number] Cefepime 1 gm In Sodium 50 Chloride 0.9% 50 ml @ 100 mls/hr IVPB ONCE ONE Rx# :[id number] Norepinephrine 4 mg In 36.017 172.011 234.465 Sodium Chloride 0.9% 250 ml @ 0.05 MCG/KG/MIN 17. 316 mls/hr IV .[id number] [facility] Rx#:[id number] Oral 200 Output: Drainage 120 Right Abdomen 120 Urine 800 2400 570 Other: Voiding Method Indwelling Catheter Indwelling Catheter Indwelling Catheter Weight 90.9 kg 90.9 kg 90.9 kg Results - Lab Results Most recent lab results Calcium 8.6 mg/dL (8.4-10.2) 09/09/20 05:30 09/09/20 05:30 09/09/20 05:30 Assessment and Plan Plan: Assessment: 1. Acute kidney injury mostly prerenal secondary to hypovolemia and anemia. Creatinine was 6.3 on admission and is down to 2.7 today. Creatinine is March 2020 was 0.88. No evidence of hydronephrosis noted on kidney ultrasound. 2. Hyperkalemia secondary to acute kidney injury, potassium supplementation as well as lisinopril. Also questionable GI bleed as hemoglobin is quite low today. Improved with medical management. 3. Acute blood loss anemia scheduled to receive a unit of blood today. 4. Acute on chronic hypoxic and hypercapnic respiratory failure. Plan: Maintain IV fluids. Scheduled to receive a unit of blood today. Repeat potassium level this evening. Avoid nephrotoxins. Continue to monitor renal function and urine output. Follow-up cultures. Thank you for the consultation. I will continue to follow the patient with you during his hospital stay.
--- NOTE | 2020-09-09 14:19 | P.PN ---
Subjective Progress Note Date: 09/09/20 Principal diagnosis: Hypotension with hypovolemic and possible septic shock. This is a 69-year-old white male with history of severe end-stage COPD, oxygen dependent, prednisone dependent, normally sees Dr. Isaac for his severe underlying COPD. Patient had a recent episode of acute cholecystitis, and he was seen at [facility], patient was felt to be a high surgical risk, and he underwent mostly cholecystostomy tube insertion. Continues to have the tube in place, draining biliary material. This was about a week and a half ago. Patient had a sudden episode of unresponsiveness witnessed by his son, patient was noted to be cyanotic, and his O2 saturation was in the 70s normally he is maintained on 4 L nasal cannula, and at that time his oxygen was off. Chest x-r ay showed chronic bibasilar nonspecific opacities. EMS transported the patient on BiPAP to the emergency room, he was found to have significant abnormalities including minimal leukocytosis, hemoglobin of 7.9, WBC count of 13.3, but most surprisingly the patient was noted to have potassium of 6.9. BUN of 143. And creatinine of 6.34. His other labs were noted to be relatively unremarkable. Patient was admitted, transition to a nasal cannula, placed on bronchodilators, also placed on steroids, and nephrology will be seeing the patient for his acute renal failure and hyperkalemia. Discussed with the patient his CODE STATUS, patient wishes to be DO NOT RESUSCITATE CODE STATUS, mostly because of his severe underlying COPD. Patient is empirically on Rocephin and Zithromax, and he is on DuoNeb and Symbicort. In the emergency room, patient was noted to be hypotensive, received multiple fluid boluses, he was also noted to be hyponatremic, and considering his hypotension, patient was transferred to the ICU. Cultures are pending. Patient was reevaluated today 09/13/2020, patient remains in the ICU, feeling better, breathing a lot easier, he is off norepinephrine, patient was maintained on 0.1 mcg/kg/m last night, however his blood pressure stabilized, his IV fluids remains at 1:30 mL per hour. Patient is on antibiotics cefepime. Cultures are pending. Hemoglobin went down to 6.2, and I recommended a unit of blood to be given today. Patient is on 8 L high flow nasal cannula, and O2 saturations 97%. 1 unit of packed RBCs was ordered to be transfused today. Continues to have significant gallbladder drainage 120 mL overnight. Norepinephrine was discontinued this morning WBC count is 10 hemoglobin is 6.2. Renal profile is significantly improved BUN is down to 116 creatinine is down to 2.74 and his potassium is down from 6.6 down to 5.3 today. Cultures of sputum blood urine and bile are still pending. Chest x-ray this morning showed COPD with bibasilar atelectasis, possible infiltrates Objective - Vital Signs Vital signs: Vital Signs Temp 98.6 F 09/09/20 13:42 Pulse 105 H 09/09/20 13:42 Resp 16 09/09/20 13:42 BP 88/51 09/09/20 13:42 Pulse Ox 93 L 09/09/20 13:42 Intake & Output 09/08/20 09/09/20 09/09/20 18:59 06:59 18:59 Intake Total 1330 2868.028 1064.465 Output Total 150 3050 1120 Balance 1180 -181.972 -55.535 Weight 90.9 kg 90.9 kg 90.9 kg Intake: IV 1130 2560 780 Sodium Chloride 0.9% 1, 130 1560 780 000 ml @ 130 mls/hr IV . Q7H42M [facility] Rx#:[id number] Sodium Chloride 0.9% 1, 1000 1000 000 ml @ 999 mls/hr IV . Q1H1M [facility] Rx#:[id number] Intake, IV Titration 308.028 284.465 Amount Calcium Gluconate 1 gm In 100 Sodium Chloride 0.9% 100 ml @ 100 mls/hr IVPB ONCE ONE Rx#:[id number] Cefepime 1 gm In Sodium 50 Chloride 0.9% 50 ml @ 100 mls/hr IVPB ONCE ONE Rx# :[id number] Norepinephrine 4 mg In 208.028 234.465 Sodium Chloride 0.9% 250 ml @ 0.05 MCG/KG/MIN 17. 316 mls/hr IV .[id number] [facility] Rx#:[id number] Oral 200 Blood Product 0 Rc As-1 Unit 0 [id number] Output: Drainage 120 Right Abdomen 120 Urine 150 3050 1000 Other: Voiding Method Indwelling Catheter Indwelling Catheter Indwelling Catheter - Exam Physical Exam: Revealed a 69 -year-old white male in no distress, on high flow nasal cannula. Head: Atraumatic, normocephalic Eyes: PERRLA, EOMI. HEENT:[Neck is supple.] [No neck masses.] [No thyromegaly.] [No JVD.] Chest: [Diminished breath sound bilaterally, no rhonchi, no wheezes no crackles noted. Symmetrical chest expansion, no chest wall tenderness..] Cardiac Exam: [Normal S1 and S2, no S3 gallop, no murmur.] Abdomen: [Soft, nontender, no megaly, no rebound, no guarding, normal bowel sounds.] Cholecystostomy tube is noted in the right upper quadrant Extremities: [No clubbing, no edema, no cyanosis.] Multiple tattoos throughout the whole body were noted. Neurological Exam: [No focal neurologic deficit.] Lymphatics: No lymphadenopathy. Musculoskeletal: Normal range of motion and no limitations no deformities. Psychiatric: Normal mood affect and mental status examination. - Labs CBC & Chem 7: 09/09/20 05:30 09/09/20 05:30 Labs: Abnormal Lab Results - Last 24 Hours (Table) 09/08/20 09/08/20 09/08/20 Range/Units 14:41 16:22 17:51 RBC (4.30-5.90) m/uL Hgb (13.0-17.5) gm/dL Hct (39.0-53.0) % RDW (11.5-15.5) % Neutrophils # (1.3-7.7) k/uL Lymphocytes # (1.0-4.8) k/uL Sodium 134 L 135 L (137-145) mmol/L Potassium 6.5 H* (3.5-5.1) mmol/L Chloride 97 L (98-107) mmol/L Carbon Dioxide (22-30) mmol/L BUN 134 H* (9-20) mg/dL Creatinine 6.11 H 4.93 H (0.66-1.25) mg/dL Glucose 174 H 126 H (74-99) mg/dL POC Glucose (mg/dL) 117 H (75-99) mg/dL Calcium 8.1 L (8.4-10.2) mg/dL Total Protein (6.3-8.2) g/dL Albumin (3.5-5.0) g/dL Crossmatch 09/08/20 09/09/20 09/09/20 Range/Units 21:58 01:35 05:30 RBC 2.47 L (4.30-5.90) m/uL Hgb 6.2 L* D (13.0-17.5) gm/dL Hct 19.9 L* (39.0-53.0) % RDW 16.0 H (11.5-15.5) % Neutrophils # 9.2 H (1.3-7.7) k/uL Lymphocytes # 0.4 L (1.0-4.8) k/uL Sodium (137-145) mmol/L Potassium 6.6 H* 6.1 H* (3.5-5.1) mmol/L Chloride (98-107) mmol/L Carbon Dioxide (22-30) mmol/L BUN (9-20) mg/dL Creatinine (0.66-1.25) mg/dL Glucose (74-99) mg/dL POC Glucose (mg/dL) (75-99) mg/dL Calcium (8.4-10.2) mg/dL Total Protein (6.3-8.2) g/dL Albumin (3.5-5.0) g/dL Crossmatch 09/09/20 09/09/20 Range/Units 05:30 09:36 RBC (4.30-5.90) m/uL Hgb (13.0-17.5) gm/dL Hct (39.0-53.0) % RDW (11.5-15.5) % Neutrophils # (1.3-7.7) k/uL Lymphocytes # (1.0-4.8) k/uL Sodium (137-145) mmol/L Potassium 5.3 H (3.5-5.1) mmol/L Chloride (98-107) mmol/L Carbon Dioxide 33 H (22-30) mmol/L BUN 116 H* (9-20) mg/dL Creatinine 2.74 H (0.66-1.25) mg/dL Glucose 154 H (74-99) mg/dL POC Glucose (mg/dL) (75-99) mg/dL Calcium (8.4-10.2) mg/dL Total Protein 5.0 L (6.3-8.2) g/dL Albumin 2.7 L (3.5-5.0) g/dL Crossmatch See Detail Assessment and Plan Assessment: Impression: Hypotension, most likely secondary to hypovolemia and hypovolemic shock, improved significantly with hydration. possibility of sepsis and septic shock is not entirely ruled out, felt to be less likely at this point, but it is not ruled out. Possible biliary sepsis. Acute renal failure/acute kidney injury could be hypovolemic in nature, or related to sepsis with hypotension and acute tubular necrosis. Significantly improved with hydration over the last 24 hours Severe end-stage COPD, O2 dependent, prednisone dependent, FEV1 is normal in the range of 23% Acute on chronic hypoxic respiratory failure secondary to severe COPD. Chronic cor pulmonale. History of cardiomyopathy and LV dysfunction, ejection fraction is normally 40%. Remote history of nicotine dependence. Acute on chronic anemia exact etiology is not clear, patient hemoglobin dropped overnight from 7.9-6.2 part of it is dilutional and part of it could be related to GI blood loss. Recommendation: Continue to monitor in the ICU. Continue GI prophylaxis./Protonix. Continue hydrations. Continue antibiotics./Cefepime. Transfused with 1 unit of packed RBCs. Continue bronchodilators. Discontinue norepinephrine since blood pressure is stabilizing. Continue to monitor hemoglobin and hematocrit daily. Continue to monitor renal profile daily seems to be improving steadily with hydration hence may have been all related to hypovolemia. We'll continue to follow. Time with Patient: Less than 30
--- NOTE | 2020-09-09 14:23 | P.PN ---
Subjective 69-year-old male came in for an episode of unresponsiveness secondary to hypoxemia he is his of oxygen patient's oxygen is found to be in saturations of 70s cyanotic. Patient does have advanced COPD uses 4 L at home. Patient denied any fever chills nausea vomiting patient does have leukocytosis chest x-ray showing possible infiltrate in the right right middle lobe and left lower lobe. Patient was treated with BiPAP when he was transported to ER. Patient is also found to have elevated creatinine of almost 6. His baseline creatinine around 1. Patient the had biliary drain in place because he is not a surgical candidate for cholecystectomy as per his lace pinner. Patient remained hypotensive in spite of aggressive fluid hydration patient is also hyponatremic patient the had poor appetite leading to poor by mouth intake. Patient is also on lisinopril. 09/09/2020 Patient is receiving IV fluids hemoglobin dropped patient is receiving receiving PRBC transfusion potassium has come down. Patient is presently on Levophed drip., Hydrocortisone was added by construction manager because of continued low blood pressure patient blood pressure remains borderline. Patient was also started on cefepime by pulmonology Constitutional: Denied any fatigue denied any fever. Cardio vascular: denied any chest pain, palpitations Gastrointestinal denied any nausea vomiting Pulmonary: Denied any shortness of breath cough Neurologic denied any new focal deficits All inpatient medications were reviewed and appropriate changes in these medications as dictated in the interval history and assessment and plan. Objective - Vital Signs Vital signs: Vital Signs Temp 98.6 F 09/09/20 13:42 Pulse 105 H 09/09/20 13:42 Resp 16 09/09/20 13:42 BP 88/51 09/09/20 13:42 Pulse Ox 93 L 09/09/20 13:42 Intake & Output 09/08/20 09/09/20 09/09/20 18:59 06:59 18:59 Intake Total 1330 2868.028 1064.465 Output Total 150 3050 1120 Balance 1180 -181.972 -55.535 Weight 90.9 kg 90.9 kg 90.9 kg Intake: IV 1130 2560 780 Sodium Chloride 0.9% 1, 130 1560 780 000 ml @ 130 mls/hr IV . Q7H42M [facility] Rx#:[id number] Sodium Chloride 0.9% 1, 1000 1000 000 ml @ 999 mls/hr IV . Q1H1M [facility] Rx#:[id number] Intake, IV Titration 308.028 284.465 Amount Calcium Gluconate 1 gm In 100 Sodium Chloride 0.9% 100 ml @ 100 mls/hr IVPB ONCE ONE Rx#:[id number] Cefepime 1 gm In Sodium 50 Chloride 0.9% 50 ml @ 100 mls/hr IVPB ONCE ONE Rx# :[id number] Norepinephrine 4 mg In 208.028 234.465 Sodium Chloride 0.9% 250 ml @ 0.05 MCG/KG/MIN 17. 316 mls/hr IV .[id number] [facility] Rx#:[id number] Oral 200 Blood Product 0 Rc As-1 Unit 0 [id number] Output: Drainage 120 Right Abdomen 120 Urine 150 3050 1000 Other: Voiding Method Indwelling Catheter Indwelling Catheter Indwelling Catheter - Exam PHYSICAL EXAMINATION: GENERAL: The patient is alert and oriented x3, not in any acute distress. Well developed, well nourished. Patient has some chills and tremors HEENT: Pupils are round and equally reacting to light. EOMI. No scleral icterus. Does have conjunctival pallor. Normocephalic, atraumatic. No pharyngeal erythema. No thyromegaly. CARDIOVASCULAR: S1 and S2 present. No murmurs, rubs, or gallops. PULMONARY: Chest is clear to auscultation, no wheezing or crackles. ABDOMEN: Soft, nontender, nondistended, normoactive bowel sounds. No palpable organomegaly. MUSCULOSKELETAL: No joint swelling or deformity. EXTREMITIES: No cyanosis, clubbing, or pedal edema. NEUROLOGICAL: Gross neurological examination did not reveal any focal deficits. SKIN: No rashes. - Labs CBC & Chem 7: 09/09/20 05:30 09/09/20 05:30 Labs: Abnormal Lab Results - Last 24 Hours (Table) 09/08/20 09/08/20 09/08/20 Range/Units 14:41 16:22 17:51 RBC (4.30-5.90) m/uL Hgb (13.0-17.5) gm/dL Hct (39.0-53.0) % RDW (11.5-15.5) % Neutrophils # (1.3-7.7) k/uL Lymphocytes # (1.0-4.8) k/uL Sodium 134 L 135 L (137-145) mmol/L Potassium 6.5 H* (3.5-5.1) mmol/L Chloride 97 L (98-107) mmol/L Carbon Dioxide (22-30) mmol/L BUN 134 H* (9-20) mg/dL Creatinine 6.11 H 4.93 H (0.66-1.25) mg/dL Glucose 174 H 126 H (74-99) mg/dL POC Glucose (mg/dL) 117 H (75-99) mg/dL Calcium 8.1 L (8.4-10.2) mg/dL Total Protein (6.3-8.2) g/dL Albumin (3.5-5.0) g/dL Crossmatch 09/08/20 09/09/20 09/09/20 Range/Units 21:58 01:35 05:30 RBC 2.47 L (4.30-5.90) m/uL Hgb 6.2 L* D (13.0-17.5) gm/dL Hct 19.9 L* (39.0-53.0) % RDW 16.0 H (11.5-15.5) % Neutrophils # 9.2 H (1.3-7.7) k/uL Lymphocytes # 0.4 L (1.0-4.8) k/uL Sodium (137-145) mmol/L Potassium 6.6 H* 6.1 H* (3.5-5.1) mmol/L Chloride (98-107) mmol/L Carbon Dioxide (22-30) mmol/L BUN (9-20) mg/dL Creatinine (0.66-1.25) mg/dL Glucose (74-99) mg/dL POC Glucose (mg/dL) (75-99) mg/dL Calcium (8.4-10.2) mg/dL Total Protein (6.3-8.2) g/dL Albumin (3.5-5.0) g/dL Crossmatch 09/09/20 09/09/20 Range/Units 05:30 09:36 RBC (4.30-5.90) m/uL Hgb (13.0-17.5) gm/dL Hct (39.0-53.0) % RDW (11.5-15.5) % Neutrophils # (1.3-7.7) k/uL Lymphocytes # (1.0-4.8) k/uL Sodium (137-145) mmol/L Potassium 5.3 H (3.5-5.1) mmol/L Chloride (98-107) mmol/L Carbon Dioxide 33 H (22-30) mmol/L BUN 116 H* (9-20) mg/dL Creatinine 2.74 H (0.66-1.25) mg/dL Glucose 154 H (74-99) mg/dL POC Glucose (mg/dL) (75-99) mg/dL Calcium (8.4-10.2) mg/dL Total Protein 5.0 L (6.3-8.2) g/dL Albumin 2.7 L (3.5-5.0) g/dL Crossmatch See Detail Assessment and Plan Plan: -Hypovolemic shock : Continues to be on IV fluids at 1 30 mL per hour and patient is also on hydrocortisone, and is also on pressor support at this time. -Anemia of chronic kidney disease: Receiving PRBC transfusion no evidence of acute GI bleed at this time -Acute on chronic hypoxic and hypercapnic respiratory failure secondary to COPD exacerbation patient will be started on oral steroids I cannot completely rule out pneumonia patient will be started on antibiotics for pneumonia. -Cor pulmonale -Acute renal failure: This most probably prerenal azotemia and can be acute tubular necrosis secondary to hypotension lisinopril will be held Coreg will be held and patient will be continued on IV fluids ultrasound of the urinary bladder did not show any obstruction Urine random sodium urine random creatinine will be obtained as well. FeNa is not consistent with prerenal but patient was receiving IV fluids at that time. -Hypertension patient is presently hypotensive and appears to have hypovolemic shock -History of a mild systolic dysfunction patient is presently hypovolemic not in heart failure exacerbation patient had EF of around 45-50%
[2020-09-09 18:35] LABS: Anisocytosis Slight; HCT 23.8 % (39.0-53.0); HGB 7.5 gm/dL (13.0-17.5); MCH 25.9 pg (25.0-35.0); MCHC 31.6 g/dL (31.0-37.0); Platelet Count 200 k/uL (150-450); RBC 2.91 m/uL (4.30-5.90); RDW 16.8 % (11.5-15.5)
[2020-09-10] MEDS: HEPARIN SODIUM,PORCINE 5,000 UNIT/ML 1 ML VIAL SQ SCH ×4 (00:15→23:30)
[2020-09-10] MEDS: HYDROCORTISONE SUCCINATE 100 MG/2 ML VIAL IV SCH ×3 (00:15→23:30)
[2020-09-10] MEDS: NOREPINEPHRINE 4 MG in SODIUM CHLORIDE 0.9% 250 ML IV SCH ×2 (04:11→17:13)
[2020-09-10] MEDS: SODIUM CHLORIDE 0.9% 1,000 ML IV SCH ×2 (04:11→10:53)
[2020-09-10 04:30] LABS: Anisocytosis Slight; Basophils % (A) 0 %; Eosinophils % (A) 1 %; HCT 21.7 % (39.0-53.0); Hypochromasia Slight; Lymphocytes # (A) 0.9 k/uL (1.0-4.8); Lymphocytes % (A) 11 %; MCH 26.1 pg (25.0-35.0); MCHC 31.1 g/dL (31.0-37.0); Mean Platelet Volume 7.7; Monocytes # (A) 0.7 k/uL (0-1.0); Monocytes % (A) 8 %; Neutrophils # (A) 6.9 k/uL (1.3-7.7); Neutrophils % (A) 79 %; Platelet Count 192 k/uL (150-450); RBC 2.58 m/uL (4.30-5.90); RDW 16.7 % (11.5-15.5); WBC 8.7 k/uL (3.8-10.6)
[2020-09-10 04:31] LABS: HGB 6.7 gm/dL (13.0-17.5)
[2020-09-10 04:45] LABS: Calcium 8.6 mg/dL (8.4-10.2); Potassium 4.3 mmol/L (3.5-5.1)
[2020-09-10] MEDS: IPRATROPIUM 0.5 MG/2.5 ML NEBU INHALATION SCH ×4 (08:15→18:57)
[2020-09-10] MEDS: SYMBICORT 80-4.5 MCG INHALER INHALATION SCH ×2 (08:15→18:56)
[2020-09-10] MEDS ORDERED: FUROSEMIDE 10 MG/ML 4 ML VIAL IV STA (08:25)
[2020-09-10] MEDS: ATORVASTATIN 20 MG TAB PO SCH (08:34)
--- NOTE | 2020-09-10 09:06 | XR ---
EXAMINATION TYPE: XR chest 1V DATE OF EXAM: 09/10/2020 COMPARISON: 09/09/2020 HISTORY: Shortness of breath TECHNIQUE: Single frontal view of the chest is obtained. FINDINGS: Chronic appearing deformity of the right rib cage. Diffuse hyperinflation. Bibasilar infil trate. Heart size stable. No pneumothorax. Arthropathy shoulders. IMPRESSION: 1. COPD with stable basilar infiltrates
--- NOTE | 2020-09-10 09:22 | P.PN ---
Subjective Patient is seen in follow-up for acute kidney injury and hyperkalemia. Renal function improving. Creatinine 1.44 today. Nonoliguric. Currently on 5 L nasal cannula. He received a unit of blood yesterday and is scheduled to receive another unit today. Hemoglobin 6.7 this morning. No chest pain. Oral intake poor. Vital signs are stable. General: The patient appeared well nourished and normally developed. HEENT: Head exam is unremarkable. Neck is without jugular venous distension. LUNGS: Breath sounds decreased. HEART: Tachycardic. ABDOMEN: Soft, no distention. EXTREMITITES: Trace edema. Objective - Vital Signs Vital signs: Vital Signs Temp 97.6 F 09/10/20 08:00 Pulse 112 H 09/10/20 08:28 Resp 26 H 09/10/20 08:00 BP 125/65 09/10/20 08:00 Pulse Ox 92 L 09/10/20 08:00 Intake & Output 09/09/20 09/10/20 09/10/20 18:59 06:59 18:59 Intake Total 1395.178 6978 260 Output Total 1480 675 170 Balance 24.465 885 90 Weight 90.9 kg 93.9 kg Intake: IV 910 1560 260 Sodium Chloride 0.9% 1, 910 1560 260 000 ml @ 130 mls/hr IV . Q7H42M [facility] Rx#:[id number] Intake, IV Titration 284.465 Amount Cefepime 1 gm In Sodium 50 Chloride 0.9% 50 ml @ 100 mls/hr IVPB ONCE ONE Rx# :[id number] Norepinephrine 4 mg In 234.465 Sodium Chloride 0.9% 250 ml @ 0.05 MCG/KG/MIN 17. 316 mls/hr IV .[id number] [facility] Rx#:[id number] Blood Product 310 Rc As-1 Unit 310 [id number] Output: Drainage 120 Right Abdomen 120 Urine 1360 675 170 Other: Voiding Method Indwelling Catheter Indwelling Catheter - Labs CBC & Chem 7: 09/10/20 04:01 09/10/20 04:01 Labs: Abnormal Lab Results - Last 24 Hours (Table) 09/09/20 09/09/20 09/10/20 Range/Units 09:36 17:38 04:01 WBC 11.0 H (3.8-10.6) k/uL RBC 2.91 L (4.30-5.90) m/uL Hgb 7.5 L (13.0-17.5) gm/dL Hct 23.8 L (39.0-53.0) % RDW 16.8 H (11.5-15.5) % Lymphocytes # (1.0-4.8) k/uL Sodium 146 H (137-145) mmol/L Chloride 109 H (98-107) mmol/L Carbon Dioxide 33 H (22-30) mmol/L BUN 94 H (9-20) mg/dL Creatinine 1.44 H (0.66-1.25) mg/dL Glucose 103 H (74-99) mg/dL Crossmatch See Detail 09/10/20 Range/Units 04:01 WBC (3.8-10.6) k/uL RBC 2.58 L (4.30-5.90) m/uL Hgb 6.7 L* (13.0-17.5) gm/dL Hct 21.7 L (39.0-53.0) % RDW 16.7 H (11.5-15.5) % Lymphocytes # 0.9 L (1.0-4.8) k/uL Sodium (137-145) mmol/L Chloride (98-107) mmol/L Carbon Dioxide (22-30) mmol/L BUN (9-20) mg/dL Creatinine (0.66-1.25) mg/dL Glucose (74-99) mg/dL Crossmatch Microbiology - Last 24 Hours (Table) 09/09/20 12:17 Gram Stain - Preliminary Aspirate Body Fluid Culture - Preliminary 09/08/20 12:56 Blood Culture - Preliminary Blood No Growth after 24 hours 09/08/20 12:56 Blood Culture - Preliminary Blood No Growth after 24 hours Assessment and Plan Plan: Assessment: 1. Acute kidney injury mostly prerenal secondary to hypovolemia and anemia. Creatinine was 6.3 on admission and is down to 1.44 today. Creatinine is March 2020 was 0.88. No evidence of hydronephrosis noted on kidney ultrasound. 2. Hyperkalemia secondary to acute kidney injury, potassium supplementation as well as lisinopril. Also questionable GI bleed. Improved with medical management. 3. Acute blood loss anemia scheduled to receive another unit of blood today. 4. Acute on chronic hypoxic and hypercapnic respiratory failure. 5. Hypernatremia from lack of oral water intake. Plan: Stop normal saline. Start D5W at 50 mL an hour. Lasix 40 mg IV once after blood transfusion completed. Avoid nephrotoxins. Continue to monitor renal function and urine output.
[2020-09-10] MEDS: CEFEPIME 1 GM in SODIUM CHLORIDE 0.9% 50 ML IVPB SCH ×2 (09:33→23:30)
[2020-09-10] MEDS: DEXTROSE 5% IN WATER 1,000 ML IV SCH (10:55)
--- NOTE | 2020-09-10 13:23 | P.PN ---
Subjective 69-year-old male came in for an episode of unresponsiveness secondary to hypoxemia he is his of oxygen patient's oxygen is found to be in saturations of 70s cyanotic. Patient does have advanced COPD uses 4 L at home. Patient denied any fever chills nausea vomiting patient does have leukocytosis chest x-ray showing possible infiltrate in the right right middle lobe and left lower lobe. Patient was treated with BiPAP when he was transported to ER. Patient is also found to have elevated creatinine of almost 6. His baseline creatinine around 1. 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 Patient remained hypotensive in spite of aggressive fluid hydration patient is also hyponatremic patient the had poor appetite leading to poor by mouth intake. Patient is also on lisinopril. 09/09/2020 Patient is receiving IV fluids hemoglobin dropped patient is receiving receiving PRBC transfusion potassium has come down. Patient is presently on Levophed drip., Hydrocortisone was added by business instructor because of continued low blood pressure patient blood pressure remains borderline. Patient was also started on cefepime by pulmonology 09/10/2020 Patient is off pressor support I'll cut down hydrocortisone dose patient blood pressures better today IV fluids will be managed by nephrology. Patient hemoglobin dropped because of hemodilution affect. Serum creatinine improved to 1.44 Constitutional: Denied any fatigue denied any fever. Cardio vascular: denied any chest pain, palpitations Gastrointestinal denied any nausea vomiting Pulmonary: Denied any shortness of breath cough Neurologic denied any new focal deficits All inpatient medications were reviewed and appropriate changes in these medications as dictated in the interval history and assessment and plan. Objective - Vital Signs Vital signs: Vital Signs Temp 97.9 F 09/10/20 13:12 Pulse 112 H 09/10/20 13:12 Resp 18 09/10/20 13:12 BP 95/59 09/10/20 13:12 Pulse Ox 94 L 09/10/20 13:12 Intake & Output 09/09/20 09/10/20 09/10/20 18:59 06:59 18:59 Intake Total 6578.022 6765 826 Output Total 1480 675 775 Balance 24.465 885 51 Weight 90.9 kg 93.9 kg Intake: IV 910 1560 390 Sodium Chloride 0.9% 1, 910 1560 390 000 ml @ 130 mls/hr IV . Q7H42M [facility] Rx#:[id number] Intake, IV Titration 284.465 150 Amount Cefepime 1 gm In Sodium 50 Chloride 0.9% 50 ml @ 100 mls/hr IVPB ONCE ONE Rx# :[id number] Cefepime 1 gm In Sodium 50 Chloride 0.9% 50 ml @ 12. 5 mls/hr IVPB Q12HR [facility] Rx#:[id number] Dextrose 5% in Water 1, 100 000 ml @ 50 mls/hr IV . Q20H [facility] Rx#:[id number] Norepinephrine 4 mg In 234.465 Sodium Chloride 0.9% 250 ml @ 0.05 MCG/KG/MIN 17. 316 mls/hr IV .[id number] [facility] Rx#:[id number] Blood Product 310 286 Rc As-1 Unit 0 [id number] Rc As-1 Unit 310 [id number] Rc Pheresis 2 As3 Unit 286 [id number] Output: Drainage 120 100 Right Abdomen 120 100 Urine 1360 675 675 Other: Voiding Method Indwelling Catheter Indwelling Catheter Indwelling Catheter - Exam PHYSICAL EXAMINATION: GENERAL: The patient is alert and oriented x3, not in any acute distress. Well developed, well nourished. Patient has some chills and tremors HEENT: Pupils are round and equally reacting to light. EOMI. No scleral icterus. Does have conjunctival pallor. Normocephalic, atraumatic. No pharyngeal erythema. No thyromegaly. CARDIOVASCULAR: S1 and S2 present. No murmurs, rubs, or gallops. PULMONARY: Chest is clear to auscultation, no wheezing or crackles. ABDOMEN: Soft, nontender, nondistended, normoactive bowel sounds. No palpable organomegaly. MUSCULOSKELETAL: No joint swelling or deformity. EXTREMITIES: No cyanosis, clubbing, or pedal edema. NEUROLOGICAL: Gross neurological examination did not reveal any focal deficits. SKIN: No rashes. - Labs CBC & Chem 7: 09/10/20 04:01 09/10/20 04:01 Labs: Abnormal Lab Results - Last 24 Hours (Table) 09/09/20 09/09/20 09/10/20 Range/Units 09:36 17:38 04:01 WBC 11.0 H (3.8-10.6) k/uL RBC 2.91 L (4.30-5.90) m/uL Hgb 7.5 L (13.0-17.5) gm/dL Hct 23.8 L (39.0-53.0) % RDW 16.8 H (11.5-15.5) % Lymphocytes # (1.0-4.8) k/uL Sodium 146 H (137-145) mmol/L Chloride 109 H (98-107) mmol/L Carbon Dioxide 33 H (22-30) mmol/L BUN 94 H (9-20) mg/dL Creatinine 1.44 H (0.66-1.25) mg/dL Glucose 103 H (74-99) mg/dL Crossmatch See Detail 09/10/20 Range/Units 04:01 WBC (3.8-10.6) k/uL RBC 2.58 L (4.30-5.90) m/uL Hgb 6.7 L* (13.0-17.5) gm/dL Hct 21.7 L (39.0-53.0) % RDW 16.7 H (11.5-15.5) % Lymphocytes # 0.9 L (1.0-4.8) k/uL Sodium (137-145) mmol/L Chloride (98-107) mmol/L Carbon Dioxide (22-30) mmol/L BUN (9-20) mg/dL Creatinine (0.66-1.25) mg/dL Glucose (74-99) mg/dL Crossmatch Microbiology - Last 24 Hours (Table) 09/09/20 12:17 Gram Stain - Preliminary Aspirate Body Fluid Culture - Preliminary 09/08/20 12:56 Blood Culture - Preliminary Blood No Growth after 24 hours 09/08/20 12:56 Blood Culture - Preliminary Blood No Growth after 24 hours Assessment and Plan Plan: -Hypovolemic shock : Continues to be on IV fluids at 1 30 mL per hour and patient is also on hydrocortisone, not on pressors shock improved patient's creatinine improved to 1.4 for blood pressure improved -Anemia of chronic kidney disease: Receiving PRBC transfusion no evidence of acute GI bleed at this time -Acute on chronic hypoxic and hypercapnic respiratory failure secondary to COPD exacerbation patient will be started on oral steroids I cannot completely rule out pneumonia patient will be started on antibiotics for pneumonia. -Cor pulmonale -Acute renal failure: This most probably prerenal azotemia and can be acute tubular necrosis secondary to hypotension lisinopril will be held Coreg will be held and patient will be continued on IV fluids ultrasound of the urinary bladder did not show any obstruction Urine random sodium urine random creatinin e will be obtained as well. FeNa is not consistent with prerenal but patient was receiving IV fluids at that time. -Hypertension patient is presently hypotensive and appears to have hypovolemic shock -History of a mild systolic dysfunction patient is presently hypovolemic not in heart failure exacerbation patient had EF of around 45-50%
--- NOTE | 2020-09-10 13:35 | P.PN ---
Subjective Progress Note Date: 09/10/20 Principal diagnosis: Hypotension with hypovolemic and possible septic shock. This is a 69-year-old white male with history of severe end-stage COPD, oxygen dependent, prednisone dependent, normally sees Dr. Isaac for his severe underlying COPD. Patient had a recent episode of acute cholecystitis, and he was seen at [facility], patient was felt to be a high surgical risk, and he underwent mostly cholecystostomy tube insertion. Continues to have the tube in place, draining biliary material. This was about a week and a half ago. Patient had a sudden episode of unresponsiveness witnessed by his son, patient was noted to be cyanotic, and his O2 saturation was in the 70s normally he is maintained on 4 L nasal cannula, and at that time his oxygen was off. Chest x-r ay showed chronic bibasilar nonspecific opacities. EMS transported the patient on BiPAP to the emergency room, he was found to have significant abnormalities including minimal leukocytosis, hemoglobin of 7.9, WBC count of 13.3, but most surprisingly the patient was noted to have potassium of 6.9. BUN of 143. And creatinine of 6.34. His other labs were noted to be relatively unremarkable. Patient was admitted, transition to a nasal cannula, placed on bronchodilators, also placed on steroids, and nephrology will be seeing the patient for his acute renal failure and hyperkalemia. Discussed with the patient his CODE STATUS, patient wishes to be DO NOT RESUSCITATE CODE STATUS, mostly because of his severe underlying COPD. Patient is empirically on Rocephin and Zithromax, and he is on DuoNeb and Symbicort. In the emergency room, patient was noted to be hypotensive, received multiple fluid boluses, he was also noted to be hyponatremic, and considering his hypotension, patient was transferred to the ICU. Cultures are pending. Patient was reevaluated today 09/09/2020, patient remains in the ICU, feeling better, breathing a lot easier, he is off norepinephrine, patient was maintained on 0.1 mcg/kg/m last night, however his blood pressure stabilized, his IV fluids remains at 1:30 mL per hour. Patient is on antibiotics cefepime. Cultures are pending. Hemoglobin went down to 6.2, and I recommended a unit of blood to be given today. Patient is on 8 L high flow nasal cannula, and O2 saturations 97%. 1 unit of packed RBCs was ordered to be transfused today. Continues to have significant gallbladder drainage 120 mL overnight. Norepinephrine was discontinued this morning WBC count is 10 hemoglobin is 6.2. Renal profile is significantly improved BUN is down to 116 creatinine is down to 2.74 and his potassium is down from 6.6 down to 5.3 today. Cultures of sputum blood urine and bile are still pending. Chest x-ray this morning showed COPD with bibasilar atelectasis, possible infiltrates Patient was reevaluated today on 09/10/2020, continues to improve, continues to feel better, renal functioning is improving. Patient's creatinine is down to 1.44. Patient is off pressors, he is still on hydrocortisone at 50 mg IV push every 12 hours, will likely transition the patient tomorrow to prednisone at 20 mg daily if the patient continues to improve hemoglobin today is 6.7. Patient had received already 2 units of packed RBCs, and I will go ahead and recommend that he receives a third unit. No clear-cut evidence of active bleeding anywhere. Pulmonary-adkins, the patient is feeling better, breathing easier. His IV fluid was changed to D5W because of his hypernatremia, remains on cefepime empirically, cultures are still pending including blood and urine and bile cultures. Patient is on 5 L nasal cannula. And considering his significant amount of fluids given and blood given, I would recommend 40 mg of Lasix IV push 1 Objective - Vital Signs Vital signs: Vital Signs Temp 98.6 F 09/10/20 13:22 Pulse 118 H 09/10/20 13:22 Resp 20 09/10/20 13:22 BP 95/59 09/10/20 13:22 Pulse Ox 94 L 09/10/20 13:22 Intake & Output 09/09/20 09/10/20 09/10/20 18:59 06:59 18:59 Intake Total 8016.572 7956 876 Output Total 1480 675 975 Balance 24.465 885 -99 Weight 90.9 kg 93.9 kg Intake: IV 910 1560 390 Sodium Chloride 0.9% 1, 910 1560 390 000 ml @ 130 mls/hr IV . Q7H42M [facility] Rx#:[id number] Intake, IV Titration 284.465 200 Amount Cefepime 1 gm In Sodium 50 Chloride 0.9% 50 ml @ 100 mls/hr IVPB ONCE ONE Rx# :[id number] Cefepime 1 gm In Sodium 50 Chloride 0.9% 50 ml @ 12. 5 mls/hr IVPB Q12HR [facility] Rx#:[id number] Dextrose 5% in Water 1, 150 000 ml @ 50 mls/hr IV . Q20H [facility] Rx#:[id number] Norepinephrine 4 mg In 234.465 Sodium Chloride 0.9% 250 ml @ 0.05 MCG/KG/MIN 17. 316 mls/hr IV .[id number] [facility] Rx#:[id number] Blood Product 310 286 Rc As-1 Unit 0 [id number] Rc As-1 Unit 310 [id number] Rc Pheresis 2 As3 Unit 286 [id number] Output: Drainage 120 100 Right Abdomen 120 100 Urine 1360 675 875 Other: Voiding Method Indwelling Catheter Indwelling Catheter Indwelling Catheter - Exam Physical Exam: Revealed a 69 -year-old white male in no distress, on high flow nasal cannula. Head: Atraumatic, normocephalic Eyes: PERRLA, EOMI. HEENT:[Neck is supple.] [No neck masses.] [No thyromegaly.] [No JVD.] Chest: [Diminished breath sound bilaterally, no rhonchi, no wheezes no crackles noted. Symmetrical chest expansion, no chest wall tenderness..] Cardiac Exam: [Normal S1 and S2, no S3 gallop, no murmur.] Abdomen: [Soft, nontender, no megaly, no rebound, no guarding, normal bowel sounds.] Cholecystostomy tube is noted in the right upper quadrant Extremities: [No clubbing, no edema, no cyanosis.] Multiple tattoos throughout the whole body were noted. Neurological Exam: [No focal neurologic deficit.] Lymphatics: No lymphadenopathy. Musculoskeletal: Normal range of motion and no limitations no deformities. Psychiatric: Normal mood affect and mental status examination. - Labs CBC & Chem 7: 09/10/20 04:01 09/10/20 04:01 Labs: Abnormal Lab Results - Last 24 Hours (Table) 09/09/20 09/09/20 09/10/20 Range/Units 09:36 17:38 04:01 WBC 11.0 H (3.8-10.6) k/uL RBC 2.91 L (4.30-5.90) m/uL Hgb 7.5 L (13.0-17.5) gm/dL Hct 23.8 L (39.0-53.0) % RDW 16.8 H (11.5-15.5) % Lymphocytes # (1.0-4.8) k/uL Sodium 146 H (137-145) mmol/L Chloride 109 H (98-107) mmol/L Carbon Dioxide 33 H (22-30) mmol/L BUN 94 H (9-20) mg/dL Creatinine 1.44 H (0.66-1.25) mg/dL Glucose 103 H (74-99) mg/dL Crossmatch See Detail 09/10/20 Range/Units 04:01 WBC (3.8-10.6) k/uL RBC 2.58 L (4.30-5.90) m/uL Hgb 6.7 L* (13.0-17.5) gm/dL Hct 21.7 L (39.0-53.0) % RDW 16.7 H (11.5-15.5) % Lymphocytes # 0.9 L (1.0-4.8) k/uL Sodium (137-145) mmol/L Chloride (98-107) mmol/L Carbon Dioxide (22-30) mmol/L BUN (9-20) mg/dL Creatinine (0.66-1.25) mg/dL Glucose (74-99) mg/dL Crossmatch Microbiology - Last 24 Hours (Table) 09/09/20 12:17 Gram Stain - Preliminary Aspirate Body Fluid Culture - Preliminary 09/08/20 12:56 Blood Culture - Preliminary Blood No Growth after 24 hours 09/08/20 12:56 Blood Culture - Preliminary Blood No Growth after 24 hours Assessment and Plan Assessment: Impression: Hypotension, most likely secondary to hypovolemia and hypovolemic shock, i mproved significantly with hydration. possibility of sepsis and septic shock is not entirely ruled out, felt to be less likely at this point, but it is not ruled out. Possible biliary sepsis. Acute renal failure/acute kidney injury could be hypovolemic in nature, or related to sepsis with hypotension and acute tubular necrosis. Continues to improve with hydration. Patient received over 5 L of fluid since admission. Severe end-stage COPD, O2 dependent, prednisone dependent, FEV1 is normal in the range of 23% Acute on chronic hypoxic respiratory failure secondary to severe COPD. Chronic cor pulmonale. History of cardiomyopathy and LV dysfunction, ejection fraction is normally 40%. Remote history of nicotine dependence Acute on chronic anemia exact etiology is not clear, patient hemoglobin dropped overnight from 7.9-6.2 part of it is dilutional and part of it could be related to GI blood loss. Anemia of chronic disease, particularly that is dilutional since the patient received almost 5 L of fluid since admission. No evidence of active bleeding Recommendation: Continue to monitor in the ICU. Continue GI prophylaxis./Protonix. Slow down on fluids, give 1 dose of Lasix specially after the next to the packed RBCs to be given. Awaiting cultures and decide on antibiotics presently remains on cefepime. Continue bronchodilators. Off norepinephrine. Continue to monitor hemoglobin and hematocrit daily. We'll continue to follow. Time with Patient: Less than 30
[2020-09-10 14:53] LABS: Potassium 6.6 mmol/L (3.5-5.1)
[2020-09-10] MEDS: CALCIUM CARBONATE 500 MG CHEWABLE PO PRN (16:14)
[2020-09-10] MEDS: Acetaminophen-Codeine 300-30mg TAB PO PRN (16:14)
--- NOTE | 2020-09-10 16:57 | CDI ---
Documentation Clarification Form Date: 09/10/2020 03:22:01 PM From: Senait Martel RN CCDS Admit Date: 09/08/2020 02:22:00 PM Patient Name: Adam Roca Visit Number: [id number] Discharge Date: ATTENTION: The Clinical Documentation Specialists (CDI) and [facility] Coding Staff appreciate your assistance in clarifying documentation. Please respond to the clarification below the line at the bottom and electronically sign. The CDI & [facility] Coding staff will review the response and follow-up if needed. Please note: Queries are made part of the Legal Health Record. If you have any questions, please contact the author of this message via ITS. Dr. Kathy Montgomery Sepsis is documented in the On Site Services Specialist Consult 09/08 and Progress note 09/09 & 09/10 History/Risk Factors: 69-year old male presented ED for an episode of unresponsiveness secondary to hypoxemia. The patient was hypotensive. Per the H&P 09/08. Medical History: Heart failure, COPD, Emphysema and home oxygen 2-3L nc Admitting Diagnosis 09/08 per H&P: Hypovolemic Shock, Acute on chronic hypoxic and hypercapnic respiratory failure, COPD Exacerbation cannot completely rule out pneumonia, Acute renal failure. Acute tubular necrosis secondary to hypotension. Clinical Indicators: WBC 09/08: 13.3 Lactic acid 09/08: 1.5 CXR 09/08: Patchy left basilar and peripheral right midlung opacity. CXR 09/09: Patchy bilateral infiltrates are again noted. Blood cultures 09/08: No growth after 24 hours. Vital signs on admission 09/08 12:38: B/P 139/90, HR 95, Temp 97.6 F Oral, RR 22, SpO2 100% 5L nasal cannula. Vss re check 09/08 13:20: B/P 82/63, HR 80, RR 22, SpO2 98% 5L nc. On Site Services Specialist consult 09/08: Hypotension, most likely secondary to hypovolemia and hypovolemic shock, possibility of sepsis and septic shock is not entirely ruled out, felt to be less likely at this point, but it is not ruled out. Possible biliary sepsis. Acute renal failure/ acute kidney injury could be hypovolemic in nature or related to sepsis with hypotension and acute tubular necrosis. Treatment: Antibiotics: 09/08 Cefepime 1gm IVPB X 1; 2 Rocephin 1gm IVPB x 1; 09/08 Azithromycin 500mg IVPB x 1; 16 Cefepime 1gm IVPB Q12HR. IV Bolus: 09/08 0.9 NS 2.5L IV Bolus. Other: 09/08 Norepinephrine 4mg @ 17.316 mls/hr [id number] [facility] Titrate for MAP. In your professional opinion, please clarify if these findings signify one of the following conditions, whether the condition is POA, and cause, if known: Sepsis ruled out Sepsis poa Severe Sepsis poa Septic Shock poa Other, please specify Unable to determine Identify the (suspected) organism Link or clarify if there is associated (due to/with): Organ failure Shock SIRS Criteria (2 or more of the following may indicate SIRS): -Temperature < 96.8F (36C) or > 101.0F (38.3C) -Heart Rate > 90 bpm -Respiratory Rate > 20 breaths/min or PaCO2 < 32 mmHg -White Blood Cell Count > 12,000 or < 4,000 cells/mm3 or > 10% bands -Lactate >2.0 mmol/L (>4.0 is equivalent to septic shock) (Last Revision: October 2017) Unable to determine MTDD
[2020-09-10 17:54] LABS: Anisocytosis Slight; HCT 28.4 % (39.0-53.0); Hypochromasia Moderate; MCH 27.1 pg (25.0-35.0); MCHC 32.5 g/dL (31.0-37.0); MCV 83.5 fL (80.0-100.0); Mean Platelet Volume 8.1; Platelet Count 219 k/uL (150-450); Poikilocytosis Slight; RDW 16.1 % (11.5-15.5); WBC 13.1 k/uL (3.8-10.6)
[2020-09-10 18:09] LABS: HGB 9.2 gm/dL (13.0-17.5)
[2020-09-10] MEDS: ONDANSETRON 4 MG/2 ML VIAL IVP PRN ×2 (18:09→23:02)
[2020-09-11 04:01] LABS: Anisocytosis Slight; Basophils % (A) 0 %; Eosinophils % (A) 0 %; HCT 26.2 % (39.0-53.0); HGB 8.5 gm/dL (13.0-17.5); Hypochromasia Slight; Lymphocytes # (A) 0.8 k/uL (1.0-4.8); Lymphocytes % (A) 6 %; MCH 27.4 pg (25.0-35.0); MCHC 32.3 g/dL (31.0-37.0); MCV 84.9 fL (80.0-100.0); Mean Platelet Volume 8.2; Monocytes # (A) 0.8 k/uL (0-1.0); Monocytes % (A) 6 %; Neutrophils # (A) 11.2 k/uL (1.3-7.7); Neutrophils % (A) 87 %; Platelet Count 184 k/uL (150-450); Poikilocytosis Slight; RBC 3.09 m/uL (4.30-5.90); RDW 16.2 % (11.5-15.5); WBC 12.9 k/uL (3.8-10.6)
[2020-09-11 04:12] LABS: Calcium 8.8 mg/dL (8.4-10.2); Potassium 4.4 mmol/L (3.5-5.1)
[2020-09-11] MEDS: DEXTROSE 5% IN WATER 1,000 ML IV SCH (06:46)
[2020-09-11] MEDS: NOREPINEPHRINE 4 MG in SODIUM CHLORIDE 0.9% 250 ML IV SCH (06:46)
[2020-09-11] MEDS ORDERED: FUROSEMIDE 10 MG/ML 4 ML VIAL IV STA ×2 (08:57→14:00)
[2020-09-11] MEDS: HYDROCORTISONE SUCCINATE 100 MG/2 ML VIAL IV SCH (09:02)
[2020-09-11] MEDS: HEPARIN SODIUM,PORCINE 5,000 UNIT/ML 1 ML VIAL SQ SCH (09:02)
[2020-09-11] MEDS: ATORVASTATIN 20 MG TAB PO SCH (09:02)
[2020-09-11] MEDS: CEFEPIME 1 GM in SODIUM CHLORIDE 0.9% 50 ML IVPB SCH (09:02)
[2020-09-11] MEDS ORDERED: PROCHLORPERAZINE INJ 10 MG/2 ML VIAL IVP PRN ×2 (09:05→09:06)
--- NOTE | 2020-09-11 09:21 | XR ---
EXAMINATION TYPE: XR chest 1V DATE OF EXAM: 09/11/2020 HISTORY: Shortness of breath. COMPARISON: 09/10/2020 TECHNIQUE: Single view of the chest is submitted. FINDINGS: Demonstrated are scattered senescent parenchymal change. Hyperinflation compatible with COPD. There is no evidence for focal infiltrate. Basilar atelectasis noted. The heart is stable. Hilar and mediastinal structures are within normal limits. Degenerative changes are seen of the dorsal spine. IMPRESSION: 1. Chronic changes without evidence for acute pulmonary disease.
[2020-09-11] MEDS: IPRATROPIUM 0.5 MG/2.5 ML NEBU INHALATION SCH ×2 (09:24→11:46)
[2020-09-11] MEDS: SYMBICORT 80-4.5 MCG INHALER INHALATION SCH (09:24)
[2020-09-11] MEDS ORDERED: carvediloL 12.5 MG TAB PO SCH (09:45)
--- NOTE | 2020-09-11 09:56 | P.PN ---
Subjective Patient is seen in follow-up for acute kidney injury and hyperkalemia. Renal function improving. Creatinine 1.17 today. Nonoliguric. Currently on 5 L nasal cannula. No active bleeding. Hemoglobin improved post blood transfusion. Oral intake is just fair. Feels nauseated. Sodium level 149 today. Vital signs are stable. General: The patient appeared well nourished and normally developed. HEENT: Head exam is unremarkable. Neck is without jugular venous distension. LUNGS: Breath sounds decreased. HEART: Tachycardic. ABDOMEN: Soft, no distention. EXTREMITITES: Trace edema. Objective - Vital Signs Vital signs: Vital Signs Temp 97.8 F 09/11/20 04:00 Pulse 140 H 09/11/20 09:34 Resp 30 H 09/11/20 07:00 BP 110/60 09/11/20 07:00 Pulse Ox 85 L 09/11/20 07:00 Intake & Output 09/10/20 09/11/20 09/11/20 18:59 06:59 18:59 Intake Total 1536 600 50 Output Total 2475 820 Balance -939 -220 50 Weight 94.2 kg Intake: IV 390 450 50 D5W 450 50 Sodium Chloride 0.9% 1, 390 000 ml @ 130 mls/hr IV . Q7H42M [facility] Rx#:[id number] Intake, IV Titration 450 150 Amount Cefepime 1 gm In Sodium 50 Chloride 0.9% 50 ml @ 12. 5 mls/hr IVPB Q12HR [facility] Rx#:[id number] Dextrose 5% in Water 1, 400 150 000 ml @ 50 mls/hr IV . Q20H [facility] Rx#:[id number] Oral 100 Blood Product 596 Rc As-1 Unit 310 [id number] Rc Pheresis 2 As3 Unit 286 [id number] Output: Drainage 150 Right Abdomen 150 Urine 2325 820 Other: Voiding Method Indwelling Catheter Indwelling Catheter - Labs CBC & Chem 7: 09/11/20 03:17 09/11/20 03:17 Labs: Abnormal Lab Results - Last 24 Hours (Table) 09/08/20 09/09/20 09/10/20 Range/Units 14:41 09:36 17:43 WBC 13.1 H (3.8-10.6) k/uL RBC 3.40 L (4.30-5.90) m/uL Hgb 9.2 L D (13.0-17.5) gm/dL Hct 28.4 L (39.0-53.0) % RDW 16.1 H (11.5-15.5) % Neutrophils # (1.3-7.7) k/uL Lymphocytes # (1.0-4.8) k/uL Sodium (137-145) mmol/L Potassium 6.6 H* (3.5-5.1) mmol/L Chloride (98-107) mmol/L Carbon Dioxide (22-30) mmol/L BUN 146 H* (9-20) mg/dL Glucose (74-99) mg/dL Crossmatch See Detail 09/11/20 09/11/20 Range/Units 03:17 03:17 WBC 12.9 H (3.8-10.6) k/uL RBC 3.09 L (4.30-5.90) m/uL Hgb 8.5 L (13.0-17.5) gm/dL Hct 26.2 L (39.0-53.0) % RDW 16.2 H (11.5-15.5) % Neutrophils # 11.2 H (1.3-7.7) k/uL Lymphocytes # 0.8 L (1.0-4.8) k/uL Sodium 149 H (137-145) mmol/L Potassium (3.5-5.1) mmol/L Chloride 109 H (98-107) mmol/L Carbon Dioxide 38 H (22-30) mmol/L BUN 80 H (9-20) mg/dL Glucose 151 H (74-99) mg/dL Crossmatch Microbiology - Last 24 Hours (Table) 09/08/20 12:56 Blood Culture - Preliminary Blood No Growth after 48 hours 09/08/20 12:56 Blood Culture - Preliminary Blood No Growth after 48 hours Assessment and Plan Plan: Assessment: 1. Acute kidney injury mostly prerenal secondary to hypovolemia and anemia. Creatinine was 6.3 on admission and is down to 1.17 today. Creatinine is Mar was 0.88. No evidence of hydronephrosis noted on kidney ultrasound. 2. Hyperkalemia secondary to acute kidney injury, potassium supplementation as well as lisinopril. Also questionable GI bleed. Improved with medical management. 3. Acute blood loss anemia s/p blood transfusion this admission. 4. Acute on chronic hypoxic and hypercapnic respiratory failure. 5. Hypernatremia from lack of oral water intake. Plan: Increase D5W to 100 mL an hour. Repeat Lasix 40 mg IV once today. Avoid nephrotoxins. Continue to monitor renal function and urine output. Repeat sodium level this evening. Patient also inquiring about hospice.
[2020-09-11 10:15] VITALS: TEMP 98.8
[2020-09-11] MEDS ORDERED: ALPRAZolam 0.5 MG TAB PO PRN (11:39)
[2020-09-11] MEDS ORDERED: methylPREDNISolone SOD SUCCI 125 MG/2 ML VIAL IV SCH (12:00)
[2020-09-11 13:19] VITALS: BMI 30.7
--- NOTE | 2020-09-11 13:19 | P.PN ---
Subjective Progress Note Date: 09/11/20 Principal diagnosis: Hypotension with hypovolemic and possible septic shock. This is a 69-year-old white male with history of severe end-stage COPD, oxygen dependent, prednisone dependent, normally sees Dr. Isaac for his severe underlying COPD. Patient had a recent episode of acute cholecystitis, and he was seen at [facility], patient was felt to be a high surgical risk, and he underwent mostly cholecystostomy tube insertion. Continues to have the tube in place, draining biliary material. This was about a week and a half ago. Patient had a sudden episode of unresponsiveness witnessed by his son, patient was noted to be cyanotic, and his O2 saturation was in the 70s normally he is maintained on 4 L nasal cannula, and at that time his oxygen was off. Chest x-r ay showed chronic bibasilar nonspecific opacities. EMS transported the patient on BiPAP to the emergency room, he was found to have significant abnormalities including minimal leukocytosis, hemoglobin of 7.9, WBC count of 13.3, but most surprisingly the patient was noted to have potassium of 6.9. BUN of 143. And creatinine of 6.34. His other labs were noted to be relatively unremarkable. Patient was admitted, transition to a nasal cannula, placed on bronchodilators, also placed on steroids, and nephrology will be seeing the patient for his acute renal failure and hyperkalemia. Discussed with the patient his CODE STATUS, patient wishes to be DO NOT RESUSCITATE CODE STATUS, mostly because of his severe underlying COPD. Patient is empirically on Rocephin and Zithromax, and he is on DuoNeb and Symbicort. In the emergency room, patient was noted to be hypotensive, received multiple fluid boluses, he was also noted to be hyponatremic, and considering his hypotension, patient was transferred to the ICU. Cultures are pending. Patient was reevaluated today 09/09/2020, patient remains in the ICU, feeling better, breathing a lot easier, he is off norepinephrine, patient was maintained on 0.1 mcg/kg/m last night, however his blood pressure stabilized, his IV fluids remains at 1:30 mL per hour. Patient is on antibiotics cefepime. Cultures are pending. Hemoglobin went down to 6.2, and I recommended a unit of blood to be given today. Patient is on 8 L high flow nasal cannula, and O2 saturations 97%. 1 unit of packed RBCs was ordered to be transfused today. Continues to have significant gallbladder drainage 120 mL overnight. Norepinephrine was discontinued this morning WBC count is 10 hemoglobin is 6.2. Renal profile is significantly improved BUN is down to 116 creatinine is down to 2.74 and his potassium is down from 6.6 down to 5.3 today. Cultures of sputum blood urine and bile are still pending. Chest x-ray this morning showed COPD with bibasilar atelectasis, possible infiltrates Patient was reevaluated today on 09/10/2020, continues to improve, continues to feel better, renal functioning is improving. Patient's creatinine is down to 1.44. Patient is off pressors, he is still on hydrocortisone at 50 mg IV push every 12 hours, will likely transition the patient tomorrow to prednisone at 20 mg daily if the patient continues to improve hemoglobin today is 6.7. Patient had received already 2 units of packed RBCs, and I will go ahead and recommend that he receives a third unit. No clear-cut evidence of active bleeding anywhere. Pulmonary-adkins, the patient is feeling better, breathing easier. His IV fluid was changed to D5W because of his hypernatremia, remains on cefepime empirically, cultures are still pending including blood and urine and bile cultures. Patient is on 5 L nasal cannula. And considering his significant amount of fluids given and blood given, I would recommend 40 mg of Lasix IV push 1 Reevaluated today on 09/11/2020, patient remains in the ICU, continues to slowly improve, however his O2 saturation today is marginal. Patient is tachycardic, his rate is anywhere between 1:30 to 140, O2 saturation is marginal hence I increased his O2 to 6 L nasal cannula. His IV fluid was changed to D5W at 100 mL/h because of his hypernatremia and he was given Lasix by nephrology on the case. Blood pressure is high, hence I restarted the patient back on his Coreg at 12.5 mg twice a day. Patient received a total of 3 units of packed RBCs. He feels a bit nauseated today and congested, Zofran was given for his nausea. Labs today were basically unremarkable except for elevated sodium of 149. Renal functioning is steadily improving, BUN is down to 80 creatinine is down to 1.17. Hemoglobin today is 8.5 no evidence of active bleeding. Objective - Vital Signs Vital signs: Vital Signs Temp 98.8 F 09/11/20 12:00 Pulse 115 H 09/11/20 13:00 Resp 44 H 09/11/20 13:00 BP 71/42 09/11/20 13:00 Pulse Ox 95 09/11/20 13:00 Intake & Output 09/10/20 09/11/20 09/11/20 18:59 06:59 18:59 Intake Total 1536 600 820 Output Total 2475 820 485 Balance -939 -220 335 Weight 94.2 kg Intake: IV 390 450 700 Cefepime 1 gm In Sodium 100 Chloride 0.9% 50 ml @ 12. 5 mls/hr IVPB Q12HR [facility] Rx#:[id number] D5W 450 600 Sodium Chloride 0.9% 1, 390 000 ml @ 130 mls/hr IV . Q7H42M [facility] Rx#:[id number] Intake, IV Titration 450 150 Amount Cefepime 1 gm In Sodium 50 Chloride 0.9% 50 ml @ 12. 5 mls/hr IVPB Q12HR [facility] Rx#:[id number] Dextrose 5% in Water 1, 400 150 000 ml @ 100 mls/hr IV . Q10H [facility] Rx#:[id number] Oral 100 120 Blood Product 596 Rc As-1 Unit 310 [id number] Rc Pheresis 2 As3 Unit 286 [id number] Output: Drainage 150 Right Abdomen 150 Urine 2325 820 485 Other: Voiding Method Indwelling Catheter Indwelling Catheter - Exam Physical Exam: Revealed a 69 -year-old white male tachypneic and tachycardic today., on 6 L nasal cannula. Head: Atraumatic, normocephalic Eyes: PERRLA, EOMI. HEENT:[Neck is supple.] [No neck masses.] [No thyromegaly.] [No JVD.] Chest: [Diminished breath sound bilaterally, no rhonchi, no wheezes no crackles noted. Symmetrical chest expansion, no chest wall tenderness..] Cardiac Exam: [Normal S1 and S2, no S3 gallop, no murmur.] Abdomen: [Soft, nontender, no megaly, no rebound, no guarding, normal bowel sounds.] Cholecystostomy tube is noted in the right upper quadrant Extremities: [No clubbing, no edema, no cyanosis.] Multiple tattoos throughout the whole body were noted. Neurological Exam: [No focal neurologic deficit.] Lymphatics: No lymphadenopathy. Musculoskeletal: Normal range of motion and no limitations no deformities. Psychiatric: Normal mood affect and mental status examination. - Labs CBC & Chem 7: 09/11/20 03:17 09/11/20 03:17 Labs: Abnormal Lab Results - Last 24 Hours (Table) 09/08/20 09/09/20 09/10/20 Range/Units 14:41 09:36 17:43 WBC 13.1 H (3.8-10.6) k/uL RBC 3.40 L (4.30-5.90) m/uL Hgb 9.2 L D (13.0-17.5) gm/dL Hct 28.4 L (39.0-53.0) % RDW 16.1 H (11.5-15.5) % Neutrophils # (1.3-7.7) k/uL Lymphocytes # (1.0-4.8) k/uL Sodium (137-145) mmol/L Potassium 6.6 H* (3.5-5.1) mmol/L Chloride (98-107) mmol/L Carbon Dioxide (22-30) mmol/L BUN 146 H* (9-20) mg/dL Glucose (74-99) mg/dL Crossmatch See Detail 09/11/20 09/11/20 Range/Units 03:17 03:17 WBC 12.9 H (3.8-10.6) k/uL RBC 3.09 L (4.30-5.90) m/uL Hgb 8.5 L (13.0-17.5) gm/dL Hct 26.2 L (39.0-53.0) % RDW 16.2 H (11.5-15.5) % Neutrophils # 11.2 H (1.3-7.7) k/uL Lymphocytes # 0.8 L (1.0-4.8) k/uL Sodium 149 H (137-145) mmol/L Potassium (3.5-5.1) mmol/L Chloride 109 H (98-107) mmol/L Carbon Dioxide 38 H (22-30) mmol/L BUN 80 H (9-20) mg/dL Glucose 151 H (74-99) mg/dL Crossmatch Microbiology - Last 24 Hours (Table) 09/09/20 12:17 Gram Stain - Preliminary Aspirate Body Fluid Culture - Preliminary Coagulase Negative Staph 09/08/20 12:56 Blood Culture - Preliminary Blood No Growth after 48 hours 09/08/20 12:56 Blood Culture - Preliminary Blood No Growth after 48 hours Assessment and Plan Assessment: Impression: Hypotension, most likely secondary to hypovolemia and hypovolemic shock, improved significantly with hydration. possibility of sepsis and septic shock is not entirely ruled out, felt to be less likely at this point, but it is not ruled out. Possible biliary sepsis. Acute renal failure/acute kidney injury could be hypovolemic in nature, or related to sepsis with hypotension and acute tubular necrosis. Continues to improve with hydration. Patient received over 5 L of fluid since admission. Severe end-stage COPD, O2 dependent, prednisone dependent, FEV1 is normal in the range of 23% Acute on chronic hypoxic respiratory failure secondary to severe COPD. Chronic cor pulmonale. History of cardiomyopathy and LV dysfunction, ejection fraction is normally 40%. Remote history of nicotine dependence Acute on chronic anemia exact etiology is not clear, patient hemoglobin dropped overnight from 7.9-6.2 part of it is dilutional and part of it could be related to GI blood loss. Anemia of chronic disease, particularly that is dilutional since the patient received almost 5 L of fluid since admission. No evidence of active bleeding Hypovolemic hypernatremia improving with hydration. Recommendation: Continue to monitor in the ICU. Continue GI prophylaxis./Protonix. Change IV fluid to D5W , monitor sodium daily Continue cefepime. Body fluid is showing coagulase-negative staph, basically contaminant. Continue bronchodilators. Continue to monitor hemoglobin and hematocrit daily. We'll continue to follow. We'll continue to monitor in the ICU for the next 24 hours. Time with Patient: Less than 30
--- NOTE | 2020-09-11 13:34 | P.CN ---
Psychiatric Consult - . Consult date: 09/11/20 Consult:: 09/11/20 13:31 Soup Mixer attempted to see consult today. Consult was placed for patient asking one of the doctors for a "shot to end his life". Patient has a chronic history of COPD on home oxygen and was brought into the ER on 09/08 for an unresponsive and hypoxic episode as he was found by EMS at his home. Patient's nurse claims that patient has been having severe shortness of breath and respiratory distress and made remarks earlier for being sick of living however had no plans to end his life. Patient was attempted to be seen by consumer loan underwriter today however patient was noted to be in severe respiratory distress and a BiPAP was needed to be placed at this time. We'll attempt to see patient tomorrow. Can continue on medications as prescribed.
[2020-09-11 15:07] LABS: ABG Base Excess 7.8 mmol/L; ABG HCO3 33 mmol/L (21-25); ABG Oxygen Saturation 72.5 % (94-97); ABG PCO2 59 mmHg (35-45); ABG PH 7.36 (7.35-7.45); ABG TCO2 35 mmol/L (19-24); Allen Test Performed? Yes
[2020-09-11 15:10] LABS: ABG PO2 42 mmHg (83-108)
--- NOTE | 2020-09-11 15:24 | P.PN ---
Subjective Progress Note Date: 09/11/20 69-year-old male came in for an episode of unresponsiveness secondary to hypoxemia he is his of oxygen patient's oxygen is found to be in saturations of 70s cyanotic. Patient does have advanced COPD uses 4 L at home. Patient denied any fever chills nausea vomiting patient does have leukocytosis chest x-ray showing possible infiltrate in the right right middle lobe and left lower lobe. Patient was treated with BiPAP when he was transported to ER. Patient is also found to have elevated creatinine of almost 6. His baseline creatinine around 1. Patient the had biliary drain in place because he is not a surgical candidate for cholecystectomy as per his long chain quiller tender. Patient remained hypotensive in spite of aggressive fluid hydration patient is also hyponatremic patient the had poor appetite leading to poor by mouth intake. Patient is also on lisinopril. 09/09/2020 Patient is receiving IV fluids hemoglobin dropped patient is receiving receiving PRBC transfusion potassium has come down. Patient is presently on Levophed drip., Hydrocortisone was added by consumer safety officer because of continued low blood pressure patient blood pressure remains borderline. Patient was also started on cefepime by pulmonology 09/10/2020 Patient is off pressor support I'll cut down hydrocortisone dose patient blood pressures better today IV fluids will be managed by nephrology. Patient hemoglobin dropped because of hemodilution affect. Serum creatinine improved to 1.44 Constitutional: Denied any fatigue denied any fever. Cardio vascular: denied any chest pain, palpitations Gastrointestinal denied any nausea vomiting Pulmonary: Denied any shortness of breath cough Neurologic denied any new focal deficits 09/11/2020 Patient is seen and evaluated and follow-up continues to be in the ICU being closely monitored. He continues to be dyspneic and extremely anxious and agitated. Patient was on nasal cannula although had increasing shortness of breath and dyspnea and was placed on BiPAP. Patient did request a consult with hospice once his son arrives as he has been making comments of "not wanting to live like this anymore". When discussing this with patient he is alert and oriented 3 and denies any thoughts of suicide or wanting to harm himself. Psychiatry was consulted along with hospice. Review of systems: Constitutional: No reports of fatigue, fever, or chills Cardiovascular: No reports of chest pain or palpitations Respiratory: Reports worsening shortness of breath GI: Reports intermittent nausea , no reports of vomiting : No reports of dysuria or retention Neurovascular: Reports weakness All inpatient medications were reviewed and appropriate changes in these medications as dictated in the interval history and assessment and plan. Objective - Vital Signs Vital signs: Vital Signs Temp 97.8 F 09/11/20 04:00 Pulse 140 H 09/11/20 09:34 Resp 30 H 09/11/20 07:00 BP 110/60 09/11/20 07:00 Pulse Ox 85 L 09/11/20 07:00 Intake & Output 09/10/20 09/11/20 09/11/20 18:59 06:59 18:59 Intake Total 1536 600 50 Output Total 2475 820 Balance -939 -220 50 Weight 94.2 kg Intake: IV 390 450 50 D5W 450 50 Sodium Chloride 0.9% 1, 390 000 ml @ 130 mls/hr IV . Q7H42M [facility] Rx#:[id number] Intake, IV Titration 450 150 Amount Cefepime 1 gm In Sodium 50 Chloride 0.9% 50 ml @ 12. 5 mls/hr IVPB Q12HR [facility] Rx#:[id number] Dextrose 5% in Water 1, 400 150 000 ml @ 50 mls/hr IV . Q20H [facility] Rx#:[id number] Oral 100 Blood Product 596 Rc As-1 Unit 310 [id number] Rc Pheresis 2 As3 Unit 286 [id number] Output: Drainage 150 Right Abdomen 150 Urine 2325 820 Other: Voiding Method Indwelling Catheter Indwelling Catheter - Exam GENERAL: The patient is alert and oriented x3, not in any acute distress. Well developed, well nourished. Patient is anxious and currently dyspneic with exertion and conversation HEENT: Pupils are round and equally reacting to light. EOMI. No scleral icterus. Does have conjunctival pallor. Normocephalic, atraumatic. No pharyngeal erythema. No thyromegaly. CARDIOVASCULAR: S1 and S2 present. No murmurs, rubs, or gallops. PULMONARY: Diminished breath sounds bilaterally with some scattered rhonchi noted ABDOMEN: Soft, nontender, nondistended, normoactive bowel sounds. No palpable organomegaly. MUSCULOSKELETAL: No joint swelling or deformity. EXTREMITIES: No cyanosis, clubbing, or pedal edema. NEUROLOGICAL: Gross neurological examination did not reveal any focal deficits. SKIN: No rashes. - Labs CBC & Chem 7: 09/11/20 03:17 09/11/20 03:17 Labs: Abnormal Lab Results - Last 24 Hours (Table) 09/08/20 09/09/20 09/10/20 Range/Units 14:41 09:36 17:43 WBC 13.1 H (3.8-10.6) k/uL RBC 3.40 L (4.30-5.90) m/uL Hgb 9.2 L D (13.0-17.5) gm/dL Hct 28.4 L (39.0-53.0) % RDW 16.1 H (11.5-15.5) % Neutrophils # (1.3-7.7) k/uL Lymphocytes # (1.0-4.8) k/uL Sodium (137-145) mmol/L Potassium 6.6 H* (3.5-5.1) mmol/L Chloride (98-107) mmol/L Carbon Dioxide (22-30) mmol/L BUN 146 H* (9-20) mg/dL Glucose (74-99) mg/dL Crossmatch See Detail 09/11/20 09/11/20 Range/Units 03:17 03:17 WBC 12.9 H (3.8-10.6) k/uL RBC 3.09 L (4.30-5.90) m/uL Hgb 8.5 L (13.0-17.5) gm/dL Hct 26.2 L (39.0-53.0) % RDW 16.2 H (11.5-15.5) % Neutrophils # 11.2 H (1.3-7.7) k/uL Lymphocytes # 0.8 L (1.0-4.8) k/uL Sodium 149 H (137-145) mmol/L Potassium (3.5-5.1) mmol/L Chloride 109 H (98-107) mmol/L Carbon Dioxide 38 H (22-30) mmol/L BUN 80 H (9-20) mg/dL Glucose 151 H (74-99) mg/dL Crossmatch Microbiology - Last 24 Hours (Table) 09/08/20 12:56 Blood Culture - Preliminary Blood No Growth after 48 hours 09/08/20 12:56 Blood Culture - Preliminary Blood No Growth after 48 hours Assessment and Plan Assessment: -Hypovolemic shock : Continues to be on IV fluids at 100 mL per hour and not on pressors, shock improved patient's creatinine improved to 1.17 for blood pressure improved -Anemia of chronic kidney disease: Receiving PRBC transfusion no evidence of acute GI bleed at this time -Acute on chronic hypoxic and hypercapnic respiratory failure secondary to COPD exacerbation patient will be started on oral steroids I cannot completely rule out pneumonia patient will be started on antibiotics for pneumonia. Pulmonary following patient currently being placed on BiPAP -Cor pulmonale -Acute renal failure: This most probably prerenal azotemia and can be acute tubular necrosis secondary to hypotension lisinopril will be held. Coreg has been resumed. ARF improving and nephrology following -Hypertension patient is presently hypotensive and appears to have hypovolemic shock -History of a mild systolic dysfunction patient is presently hypovolemic not in heart failure exacerbation patient had EF of around 45-50% Plan: Continue with current medications. IV fluids have been discontinued and patient respiratory status deteriorating and is extremely anxious and being placed on a BiPAP. Patient continues to make comments of not wanting to live like this anymore and requested a hospice consult and states his son will be coming in today. Psychiatry consulted for further evaluation. Patient denies any suicidal ideation at this time. Patient is extremely anxious and agitated and has been intermittently nauseated throughout the day. Hospice has also been consulted and pending at this time.
[2020-09-11] MEDS ORDERED: ATROPINE OPHTH SOLN 1% 5ML BTL SUBLINGUAL PRN (16:09)
[2020-09-11] MEDS ORDERED: ARTIFICIAL TEARS-HYPROMELLOSE DROPS 15 ML BTL BOTH EYES PRN (16:09)
[2020-09-11] MEDS ORDERED: MORPHINE SULFATE 2 MG/ML SYRINGE IV PRN (16:09)
[2020-09-11] MEDS ORDERED: LORazepam 2 MG/ML INJ IV PRN (16:09)
[2020-09-11 16:10] LABS: Anisocytosis Slight; HCT 22.4 % (39.0-53.0); Hypochromasia Marked; MCH 26.9 pg (25.0-35.0); MCHC 31.1 g/dL (31.0-37.0); MCV 86.2 fL (80.0-100.0); Mean Platelet Volume 8.3; Platelet Count 198 k/uL (150-450); Poikilocytosis Slight; RBC 2.59 m/uL (4.30-5.90); RDW 16.3 % (11.5-15.5); WBC 12.6 k/uL (3.8-10.6)
[2020-09-11] MEDS ORDERED: SCOPOLAMINE 1.5MG/72HR PATCH TRANSDERM SCH (16:15)
[2020-09-11 16:44] VITALS: BP 99/85; PULSE 82; RESP 16
--- NOTE | 2020-09-12 13:49 | P.DS ---
Providers Date of admission: 09/08/20 14:22 Expected date of discharge: 09/11/20 Attending physician: Zeferino Galan MD Consults: 09/08/20 14:23 Consult Physician Routine Consulting Provider: Julius Isaac Consult Reason/Comments: COPd Do you want consulting provider notified?: Yes Consult Physician Urgent Consulting Provider: Destiney Rangel Consult Reason/Comments: GIULIANO Do you want consulting provider notified?: Yes 09/11/20 09:22 Consult Physician Stat Consulting Provider: Eliel Naik Consult Reason/Comments: pt states he wants a shot to end his life Do you want consulting provider notified?: Yes Primary care physician: Julius Isaac Hospital Course: Final diagnosis -Hypovolemic shock -Anemia of chronic kidney disease -Acute on chronic hypoxic and hypercapnic respiratory failure secondary to COPD exacerbation -Cor pulmonale -Acute renal failure: This most probably prerenal azotemia and can be acute tubular necrosis secondary to hypotension -Hypertension patient is presently hypotensive and appears to have hypovolemic shock -History of a mild systolic dysfunction patient is presently hypovolemic not in heart failure exacerbation patient had EF of around 45-50% -No code Pulmonary cause of : COPD exacerbation, hypovolemic shock, cor pulmonale, acute on chronic hypoxic and hypercapnic respiratory failure secondary to COPD exacerbation Discharge disposition Patient has on 09/11/2020. Patient was starting to proceed with comfort measures per his wishes and family's wishes and patient . Please refer to nursing documentation and previous progress reports for further HPI. Hospital course 69-year-old male came in for an episode of unresponsiveness secondary to hypoxemia he is his of oxygen patient's oxygen is found to be in saturations of 70s cyanotic. Patient does have advanced COPD uses 4 L at home. Patient denied any fever chills nausea vomiting patient does have leukocytosis chest x-ray showing possible infiltrate in the right right middle lobe and left lower lobe. Patient was treated with BiPAP when he was transported to ER. Patient is also found to have elevated creatinine of almost 6. His baseline creatinine around 1. Patient the had biliary drain in place because he is not a surgical candidate for cholecystectomy as per his casino attendant. Patient remained hypotensive in spite of aggressive fluid hydration patient is also hyponatremic patient the had poor appetite leading to poor by mouth intake. Patient is also on lisinopril. 09/11/2020 Patient is seen and evaluated in follow-up continues to be in the ICU being closely monitored. He continues to be dyspneic and extremely anxious and agitated. Patient was on nasal cannula although had increasing shortness of breath and dyspnea and was placed on BiPAP. Patient did request a consult with hospice once his son arrives as he has been making comments of "not wanting to live like this anymore". When discussing this with patient he is alert and oriented 3 and denies any thoughts of suicide or wanting to harm himself. Psychiatry was consulted along with hospice. Family and patient's wishes were to proceed with comfort care and patient's respiratory status deteriorated and patient became more unresponsive and ultimately . Please refer to nursing documentation for time of . Patient Condition at Discharge: Poor Plan - Discharge Summary Discharge Rx Participant: Yes New Discharge Prescriptions: No Action Fluticasone/Umeclidin/Vilanter [Trelegy Ellipta 100-62.5-25] 1 puff INHALATION RT-DAILY Furosemide [Lasix] 40 mg PO DAILY Potassium Chloride [Klor-Con 20] 20 meq PO DAILY Acetaminophen-Codeine 300-30mg [Tylenol w/codeine #3] 1 - 2 tab PO Q8H PRN PRN Reason: Pain Albuterol Sulfate [Ventolin HFA] 1 - 2 puff INHALATION RT-Q6H PRN PRN Reason: Shortness Of Breath ALPRAZolam [Xanax] 0.5 mg PO TID PRN PRN Reason: Anxiety Atorvastatin [Lipitor] 20 mg PO DAILY Budesonide [Pulmicort] 0.5 mg INHALATION RT-BID carvediloL [Coreg] 6.25 mg PO BID Ipratropium-Albuterol Nebulize [Duoneb 0.5 mg-3 mg/3 ml Soln] 3 ml INHALATION RT-QID lisinopriL [Zestril] 5 mg PO DAILY predniSONE [Deltasone] 20 mg PO DAILY Discharge Medication List Fluticasone/Umeclidin/Vilanter [Trelegy Ellipta 100-62.5-25] 1 puff INHALATION RT-DAILY 10/05/19 [History] Furosemide [Lasix] 40 mg PO DAILY 10/05/19 [History] Potassium Chloride [Klor-Con 20] 20 meq PO DAILY 10/05/19 [History] ALPRAZolam [Xanax] 0.5 mg PO TID PRN 09/08/20 [History] Acetaminophen-Codeine 300-30mg [Tylenol w/codeine #3] 1 - 2 tab PO Q8H PRN 09/08/20 [History] Albuterol Sulfate [Ventolin HFA] 1 - 2 puff INHALATION RT-Q6H PRN 09/08/20 [History] Atorvastatin [Lipitor] 20 mg PO DAILY 09/08/20 [History] Budesonide [Pulmicort] 0.5 mg INHALATION RT-BID 09/08/20 [History] Ipratropium-Albuterol Nebulize [Duoneb 0.5 mg-3 mg/3 ml Soln] 3 ml INHALATION RT-QID 09/08/20 [History] carvediloL [Coreg] 6.25 mg PO BID 09/08/20 [History] lisinopriL [Zestril] 5 mg PO DAILY 09/08/20 [History] predniSONE [Deltasone] 20 mg PO DAILY 09/08/20 [History] Follow up Appointment(s)/Referral(s): Julius Isaac DO [Primary Care Provider] - 1-2 days [facility], [NON-STAFF] - 1-2 Days Discharge Disposition: - Preliminary Cause of Preliminary Cause of : COPD exacerbation, hypovolemic shock, resp failure
--- NOTE | 2020-09-17 14:46 | CDI ---
Documentation Clarification Form Mortality Review Date: 09/17/2020 02:25:18 PM From: Amara Day RN, CCDS Admit Date: 09/08/2020 02:22:00 PM Patient Name: Adam Roca Visit Number: [id number] Discharge Date: 09/11/2020 05:35:00 PM ATTENTION: The Clinical Documentation Specialists (CDI) and [facility] Coding Staff appreciate your assistance in clarifying documentation. Please respond to the clarification below the line at the bottom and electronically sign. The CDI & [facility] Coding staff will review the response and follow-up if needed. Please note: Queries are made part of the Legal Health Record. If you have any questions, please contact the author of this message via ITS. Dr. 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 Patient is also found to have elevated creatinine of almost 6.His baseline creatinine around 1." 09/09 Attending Progress notes-09/11 D/C Summary: "Anemia of chronic kidney disease: Receiving PRBC transfusion no evidence of acute GI bleed at this time." 09/09 Nephrology Consult: "Acute kidney injury mostly prerenal secondary to hypovolemia and anemia. Creatinine was 6.3 on admission and is down to 2.7 today. Creatinine is March 2020 was 0.88. No evidence of hydronephrosis noted on kidney ultrasound." 09/08-09/11 Current BUN: 143/146/134/116/94/80 CR: 6.34/6.11 4.93/2.74/1.44/1.17 GFR 03/04//49/62 Treatment: 09/09-09/10 3 u PRBC"s transfused 09/08 0.9%NS IVF Bolus 2L 09/08 4 Amps HCO3 IVP and 2 Amps on 09/09 09/08 Levophed Gtt titrate for B/P 09/08 10 Units Humulin R IVP x 3 and 10 units IVP x 1 09/09 09/08 3 Amps D50 IVP and 1 Amp on 09/09 09/08 Calcium Gluconate IVPB 1 GM IVPB OT x 3 doses and 1 dose 09/09 09/08 IV Solu-cortef tapering dose 09/08 & 09/10 Lasix 40 mg IVP OT 09/11 Lasix 40 mg IVP OT x 2 doses In order to capture the severity of condition, please clarify the stage of the CKD, if known: CKD Ruled Out CKD Stage 1 (GFR > 90) CKD Stage 2 (GFR 60-89) CKD Stage 3a (GFR 45-59) CKD Stage 3b (GFR 30-44) CKD Stage 4 (GFR 15-29) CKD Stage 5 (GFR <15) ESRD Other, please specify Unable to determine [Template last reviewed: March 2020] aki MTDD
--- NOTE | 2020-09-17 15:06 | CDI ---
Documentation Clarification Form Date: 09/17/2020 02:48:18 PM From: Amara Day RN, CCDS Admit Date: 09/08/2020 02:22:00 PM Patient Name: Adam Roca Visit Number: [id number] Discharge Date: 09/11/2020 05:35:00 PM ATTENTION: The Clinical Documentation Specialists (CDI) and [facility] Coding Staff appreciate your assistance in clarifying documentation. Please respond to the clarification below the line at the bottom and electronically sign. The CDI & [facility] Coding staff will review the response and follow-up if needed. Please note: Queries are made part of the Legal Health Record. If you have any questions, please contact the author of this message via ITS. Dr. Montgomery Your patient has the documented diagnosis of hypovolemic shock, Acute Renal Failure, and Acute Blood Loss Anemia. Please review to determine if underlying cause can be determined to accurately reflect patient SOI/ROM. A relationship between diagnoses cannot be assumed unless documented as such by the attending physician. In order to capture the severity of condition; please document the relationship, if any, between these diagnoses. History/Risk Factors: CKD, HTN, ES COPD on home O2 with chronic hypoxic respiratory failure, pneumonia, chronic cholecystitis with biliary tube in place, CHF Clinical Indicators: 09/09 Nephrology Consult: "Patient has received 5 L of normal saline bolus and is currently maintained on normal saline at 1 30 mL an hour. Acute kidney injury mostly prerenal secondary to hypovolemia and anemia. Also questionable GI bleed as hemoglobin is quite low today .Improved with medical management. Acute blood loss anemia scheduled to receive a unit of blood today." 09/11 Pulmonary Progress note: Hypotension, most likely secondary to hypovolemia and hypovolemic shock, improved significantly with hydration. Possibility of sepsis and septic shock is not entirely ruled out, felt to be less likely at this point, but it is not ruled out. Possible biliary sepsis. Acute renal failure/acute kidney injury could be hypovolemic in nature, or related to sepsis with hypotension and acute tubular necrosis. Continues to improve with hydration. Patient received over 5 L of fluid since admission. Acute on chronic anemia exact etiology is not clear, patient hemoglobin dropped overnight from 7.9-6.2 part of it is dilutional and part of it could be related to GI blood loss." 09/10 Attending Progress note: "Hypovolemic shock : Continues to be on IV fluids at 1 30 mL per hour and patient is also on hydrocortisone, not on pressors shock improved patient's creatinine improved to 1.4 for blood pressure improved - Anemia of chronic kidney disease: Receiving PRBC transfusion no evidence of acute GI bleed at this time." Treatment: 09/08-09/09 3 unit PRBC Transfused 09/08 2L 0.9% NS IVF Bolus 09/08 Solu-Cortef taping dose for B/P 09/08 Levophed Gtt titrate for B/P Please clarify and document your clinical opinion in the discharge summary if any relationship (due to, caused by, secondary to) exists between these two diagnoses. Please include clinical findings supporting your diagnosis. Hypovolemic Shock secondary to GIULIANO Hypovolemic Shock secondary to Acute Blood Loss Anemia (please indicate suspected source of blood loss) Hypovolemic Shock secondary to other specified cause (please specify) Other explanation of clinical findings (please specify) Unable to determine (no explanation for clinical findings) (Last Revision: April 2017) My documentation was appropriately and accurately documented no need for this query MTDD
== END 2020-09-11 17:35 | disposition expired | DRG 189 ==
LOC: EC 12:34 → 2SICU 14:22
PROVIDERS: ADMIT Internal Medicine; ATTEND Internal Medicine
PROC: 3E033XZ Introduction of Vasopressor into Peripheral Vein, Percutaneous Approach (ICD-10-PCS; principal; 2020-09-08)
PROC: 30233N1 Transfusion of Nonautologous Red Blood Cells into Peripheral Vein, Percutaneous Approach (ICD-10-PCS; 2020-09-09)
PROC: 5A09357 Assistance with Respiratory Ventilation, Less than 24 Consecutive Hours, Continuous Positive Airway Pressure (ICD-10-PCS; 2020-09-11)
DX: J96.21 Acute and chronic respiratory failure with hypoxia (principal); N17.0 Acute kidney failure with tubular necrosis; J18.9 Pneumonia, unspecified organism; I42.9 Cardiomyopathy, unspecified; E87.0 Hyperosmolality and hypernatremia; E87.1 Hypo-osmolality and hyponatremia; I50.22 Chronic systolic (congestive) heart failure; J98.11 Atelectasis; J96.22 Acute and chronic respiratory failure with hypercapnia; R57.1 Hypovolemic shock; D63.8 Anemia in other chronic diseases classified elsewhere; I27.81 Cor pulmonale (chronic); I11.0 Hypertensive heart disease with heart failure; J43.9 Emphysema, unspecified; Z66 Do not resuscitate; Z51.5 Encounter for palliative care; Z20.822 Contact with and (suspected) exposure to COVID-19; E87.5 Hyperkalemia; E86.1 Hypovolemia; Z79.51 Long term (current) use of inhaled steroids; Z79.52 Long term (current) use of systemic steroids; Z79.899 Other long term (current) drug therapy; Z97.8 Presence of other specified devices; Z87.891 Personal history of nicotine dependence; Z87.01 Personal history of pneumonia (recurrent); Z99.81 Dependence on supplemental oxygen; Z87.19 Personal history of other diseases of the digestive system; Z90.89 Acquired absence of other organs; Z98.890 Other specified postprocedural states; Z88.2 Allergy status to sulfonamides; Z82.49 Family history of ischemic heart disease and other diseases of the circulatory system
CPT/HCPCS: 36415; 36600; 71045; 71046; 76770; 80048; 80053; 82570; 82803; 82805; 83605; 83880; 84132; 84295; 84300; 85025; 85027; 85610; 85730; 86850; 86900; 86901; 86920; 87040; 87070; 87077; 87186; 87205; 87635; 93005; 94640; 94660; 96365; 96375; 99291